=== PATIENT | female | born 1955 | race Caucasian/White ===

== ENCOUNTER → 2019-12-01 13:51 | Outpatient (CLI) | payer BC, SELFPAY ==
--- NOTE | ~2019-12-01 | MM_ITS ---
EXAMINATION: MM screening ant BI w wero HISTORY: Screening TECHNIQUE: Craniocaudal and mediolateral oblique 3-D tomosynthesis images were obtained and synthetic 2-D images were generated. CAD analysis was submitted and interpreted. COMPARISON: Comparison to multiple prior studies sequentially, with oldest reviewed study dated 12/26. BREAST PARENCHYMAL COMPOSITION: The breasts are extremely dense, which lowers the sensitivity of mamm ography. FINDINGS: There is no evidence of suspicious mass, calcification, or architectural distortion to sugg est malignancy in either breast. There has been no suspicious interval change. IMPRESSION: 1. No mammographic evidence of malignancy. 2. Recommend routine screening mammography in one year. BI-RADS Category 1: Negative Reviewed, dictated and finalized at location A.
== END ==
PROVIDERS: PCP Family Medicine; Visit Provider Obstetrics & Gynecology
DX: Z12.31 Encounter for screening mammogram for malignant neoplasm of breast (principal)
CPT/HCPCS: 77063; 77067

== ENCOUNTER 2021-08-24 17:14 | Outpatient (CLI) | payer OTHER, SELFPAY ==
--- NOTE | ~2021-08-24 | US_ITS ---
EXAMINATION: US carotid duplex BI DATE: 08/24/2021 17:39 INDICATION: Occlusion and stenosis of unspecified carotid artery, bruit TECHNIQUE: Grayscale, color Doppler, and pulsed Doppler images of the cervical carotid arteries were obtained. The degree of vessel stenosis is placed in one of the following categories: normal, <50%, 5 0-69%, >=70% but less than near-occlusion, near-occlusion, or total occlusion. Note that percent sten osis relative to normal distal artery lumen diameter is indirectly measured from velocity measurement s as described by Trung, et al. Radiology 2003; 229:340-346. COMPARISON: 06/16/2010 FINDINGS: RIGHT: The right common carotid artery (CCA) peak systolic velocity (PSV) is 104 cm/s. The right internal ca rotid artery (ICA) PSV is 96 cm/s. The right ICA end-diastolic velocity (EDV) is 24 cm/s. The right I CA/CCA PSV ratio is 0.9. Grayscale and color Doppler images yield an estimate of less than 50% diamet er reduction from plaque in the ICA. The external carotid artery (ECA) PSV is 82 cm/s. There is anteg rade flow in the right vertebral artery. LEFT: The left CCA PSV is 95 cm/s. The left ICA PSV is 93 cm/s. The left ICA EDV is 33 cm/s. The left ICA/C CA PSV ratio is 1.0. Grayscale and color Doppler images yield an estimate of less than 50% diameter r eduction from plaque in the ICA. The ECA PSV is 85 cm/s. There is antegrade flow in the left vertebra l artery. IMPRESSION: 1. <50% stenosis in the right internal carotid artery. 2. <50% stenosis in the left internal carotid artery. Reviewed, dictated and finalized at location F.
== END 2021-08-24 17:15 | disposition home or self-care (01) ==
PROVIDERS: PCP Family Medicine; Visit Provider Family Medicine
DX: I65.23 Occlusion and stenosis of bilateral carotid arteries (principal)
CPT/HCPCS: 93880

== ENCOUNTER 2022-10-03 15:13 | Emergency (ER) | payer OTHER, SELFPAY ==
[2022-10-03] VITALS (7 sets, daily range): BP systolic 104–135; BP diastolic 52–66; PULSE 57–76; RESP 15–20; TEMP 36.6; O2SAT 100
--- NOTE | ~2022-10-03 | CT_ITS ---
EXAMINATION: CT abdomen pelvis w con DATE: 10/03/2022 19:17 INDICATION: vomiting, diarrhea, epigastric pain into scapula TECHNIQUE: Computed tomography (CT) of the abdomen and pelvis was performed with 100 mL Omnipaque-350 intravenous contrast. Automated exposure control and iterative reconstruction technique were employe d. The dose-length product was 170.12 mGy-cm. COMPARISON: 02/27/2012. FINDINGS: Lower thorax: Peripheral and basal reticular opacities, likely change of usual interstitial pneumonit is. Liver: Normal. Biliary/Gallbladder: Gallbladder is normal. No bile duct dilation. Pancreas: No mass or duct dilation. Spleen: Normal. Adrenals:No mass. Kidneys: Simple left midpole cyst. No suspicious mass, stone, or hydronephrosis. GI tract: Moderate distal esophageal and gastric wall edema. Uncomplicated rectal anastomosis. No sma ll or large bowel dilation. Normal appendix. Mesentery/Peritoneum: No ascites, mass, or free air. Retroperitoneum: No mass. Atherosclerotic abdominal aortic and/or arterial calcifications. Pelvis: Surgically absent uterus. Normal urinary bladder.. Soft Tissues: Soft tissues and body wall unremarkable. Bones: No acute osseous finding. IMPRESSION: Moderate esophagitis/gastritis. No other acute abdominopelvic process detected. Reviewed, dictated and finalized at location K.
--- NOTE | ~2022-10-03 | XR_ITS ---
EXAMINATION: XR chest 1V portable Exam Date/Time: 10/03/2022 18:15 CDT HISTORY: weakness, lightheaded Comparison: 05/05/2010, images only. RESULT: Lines, tubes, and devices: None. Lungs and pleura: Clear. Cardiomediastinal silhouette: Stable. Other: No acute osseous or upper abdominal finding. IMPRESSION: No acute cardiopulmonary process. Reviewed, dictated and finalized at location K.
[2022-10-03 15:35] LABS: Basophils Percent Auto 0.3 % (0.2-1.2); Eosinophils Absolute Auto 0.1 K/mm3 (0-0.3); Eosinophils Percent Auto 0.8 % (0-4.4); Hematocrit 39.2 % (37.0-47.0); Immature Granulocyte Absolute 0.01 K/mm3 (0.00-0.031); Immature Granulocyte Percent A 0.2 % (0-0.5); Lymphocytes Absolute Auto 1.84 K/mm3 (0.9-3.2); Lymphocytes Percent Auto 30.3 % (18.3-44.2); Mean Corpuscular HGB Conc 33.2 g/dl (32-36); Mean Corpuscular Hemoglobin 30.4 pg (26-34); Mean Corpuscular Volume 91.8 fl (80-100); Mean Platelet Volume 8.8 fl (7.4-10.4); Monocytes Absolute Auto 0.8 K/mm3 (0.1-0.6); Monocytes Percent Auto 12.8 % (2.6-8.5); Neutrophils Absolute Auto 3.4 K/mm3 (1.3-6.7); Neutrophils Percent Auto 55.6 % (45.5-73.1); Platelet Count Result 315 k/mm3 (150-375); Red Blood Count 4.27 M/mm3 (4.2-5.4); Red Cell Distribution Width 13.8 % (11.5-14.5); White Blood Count 6.1 K/mm3 (4.5-10.0)
[2022-10-03 15:46] LABS: Alanine Aminotransferase 21 U/L (6-35); Alkaline Phosphatase 68 U/L (38-126); Anion Gap 6 mmol/L (8-16); Aspartate Amino Transferase 30 U/L (14-36); Bilirubin,Total 0.4 mg/dL (0.2-1.3); Blood Urea Nitrogen 16 mg/dL (7-17); Calcium 8.9 mg/dL (8.4-10.2); Carbon Dioxide 27 mmol/L (22-30); Chloride 100 mmol/L (98-107); Estimated CRCL calculation 47 ml/min; Estimated Glomerular Filt Rate > 60; Glucose 153 mg/dL (65-110); Potassium 3.2 mmol/L (3.4-5.0); Sodium 133 mmol/L (137-145)
[2022-10-03 18:02] LABS: Lipase 57 U/L (23-300)
[2022-10-03 18:10] LABS: Appearance Urine Cloudy (Clear); Bacteria Urine None Seen /hpf; Bilirubin Urine Negative (Negative); Blood Urine Negative (Negative); Color Urine Yellow (Yellow); Glucose Urine UA Negative (Negative); Ketones Urine Negative (Negative); Leukocyte Esterase Ur Negative LEU/UL (Negative); Nitrate Urine Negative (Negative); Non Pathogenic Casts 0-2; Protein Urine Negative (Negative); RBC Urine 0-2 /hpf (0-2); Specific Grav Ur 1.015 (1.001-1.035); Squamous Epithelial Cell Urine Moderate /hpf (Few); WBC Urine 0-5 /hpf; pH Urine 5.5 (5.0-9.0)
--- NOTE | 2022-10-03 18:12 | ED.WEAKNESS ---
HPI - Weakness General Chief complaint: Weakness Stated complaint: weakness Time Seen by Provider: 10/03/22 17:49 History of Present Illness HPI Narrative: Patient is a 67-year-old female presenting with generalized weakness. Patient states that she has been under significant stress for the last month as her was in the ICU and was recently discharged. States that over the weekend she developed persistent nausea and numerous episodes of diarrhea. States that she has been able to tolerate small amounts of p.o. intake but she has been feeling increasingly weak and intermittently lightheaded. States that she has had to lay on her couch for the last several days. She called her PCP today who advised that she come in to the ER. States that she has not vomited or had diarrhea today. Reports decreased urinary frequency but no dysuria or hematuria. Reports intermittent headache. No fevers, numbness or weakness, chest pain, shortness of breath, cough, leg swelling. States that she did have some epigastric pain that radiated into her upper back. Related Data Home Medications Medication Instructions Recorded Confirmed aspirin 81 mg tablet,delayed 81 mg PO DAILY 03/27/19 09/06/21 release estradiol 1 mg tablet 0.5 mg PO DAILY 08/12/20 09/06/21 Allergies Allergy/AdvReac Type Severity Reaction Status Date / Time No Known Allergies Allergy Mild Verified 09/06/21 15:29 Review of Systems Review of Systems: All systems reviewed & are unremarkable except as noted in HPI and below PMFSH Past Medical History Medical History Cancer of colon Chest pain History of COPD Surgical History Surgical History H/O hysterectomy with unilateral oophorectomy H/O partial resection of colon H/O: Family History Family History Mother Diabetes mellitus Sibling Acute myocardial infarction Sibling Acute myocardial infarction Social History Social History Smoking status: Never smoker Second hand tobacco smoke exposure: No Smoking end date: 02/26/08 Alcohol intake: current Drinks per week: 1 Substance use: never Substance use type: does not use Living arrangements: with family Occupation/Education: occupation Gender identity (if verbalized by the patient): Female Spiritual care concerns: No Agree to blood products: Yes Exam Narrative: GENERAL: Well-appearing, well-nourished, and in no acute distress. Pleasant and cooperative HEAD: Normocephalic, atraumatic. EYES: PERRLA and EOMI. ENT: Nares clear, no rhinorrhea or epistaxis. Mucous membranes moist. NECK: Supple. CHEST: Clear to auscultation. No respiratory distress. HEART: Regular rate and rhythm. No murmur heard. Normal peripheral pulses. ABDOMEN: Soft, mild epigastric tenderness, no guarding or rebound EXTREMITIES: Normal range of motion. No edema. SKIN: Warm, dry, no rash. NEURO: No focal deficits. Alert and oriented x3. PSYCH: Normal mood and affect. Course Vital Signs Vital signs: Vital Signs Temperature 97.9 F 10/03/22 15:15 Pulse Rate 74 10/03/22 15:15 Respiratory Rate 18 10/03/22 15:15 Blood Pressure 108/66 10/03/22 15:15 Pulse Oximetry 100 10/03/22 15:15 Temperature 97.9 F 10/03/22 15:15 Pulse Rate 76 10/03/22 20:49 Respiratory Rate 15 10/03/22 20:49 Blood Pressure 104/52 L 10/03/22 20:49 Pulse Oximetry 100 10/03/22 20:49 MDM - Weakness MDM Narrative Medical decision making narrative: Patient is a 67-year-old female presenting with generalized weakness, lightheadedness in the setting of recent vomiting and diarrhea. Vitals are stable. Exam remarkable for the above. Plan for EKG, labs, chest x-ray, CT abdomen pelvis, fluids, Zofran,
--- NOTE | 2022-10-03 18:15 | ECG_ITS ---
Measurements Intervals [place] Rate: 52 P: 81 GA: 121 QRS: 79 QRSD: 112 T: 61 QT: 453 QTc: 425 Interpretive Statements SINUS BRADYCARDIA MODERATE INTRAVENTRICULAR CONDUCTION DELAY [110+ ms QRS DURATION] NO PREVIOUS ECG AVAILABLE FOR COMPARISON Electronically Signed On 10-04-2022 8:56:01 CDT by Keila Fajardo M.D.
[2022-10-03 18:16] LABS: Add Urine Microscopic? YES
[2022-10-03] MEDS: ONDANSETRON INJ 4 MG/2 ML VIAL IV PUSH (18:32)
[2022-10-03] MEDS: LACTATED RINGERS 1,000 ML 999 ML IV CONT ×2 (18:33→18:34)
[2022-10-03] MEDS: FAMOTIDINE 20 MG/2 ML VIAL IV PUSH (18:33)
[2022-10-03 18:39] LABS: Troponin I < 0.012 ng/mL (0.000-0.034)
[2022-10-03] MEDS: POTASSIUM CHLORIDE 20 MEQ ER TABLET 40 MEQ PO (20:28)
[2022-10-03] MEDS: ONDANSETRON HCL ODT 4 MG TABLET PO (20:36)
== END 2022-10-03 20:50 | disposition home or self-care (01) ==
PROVIDERS: Emergency Medicine; Emergency Provider Emergency Medicine; PCP Family Medicine
DX: K20.90 Esophagitis, unspecified without bleeding (principal); K29.70 Gastritis, unspecified, without bleeding; E87.6 Hypokalemia; R53.1 Weakness; J44.9 Chronic obstructive pulmonary disease, unspecified; Z85.038 Personal history of other malignant neoplasm of large intestine; Z87.891 Personal history of nicotine dependence; Z90.710 Acquired absence of both cervix and uterus; Z90.721 Acquired absence of ovaries, unilateral; Z90.49 Acquired absence of other specified parts of digestive tract; Z79.82 Long term (current) use of aspirin
CPT/HCPCS: 36415; 71045; 74177; 80053; 81001; 83690; 83735; 84484; 85025; 93005; 96361; 96374; 96375; 99284; A9270; J2405; J7120; Q9967

== ENCOUNTER 2023-01-01 13:39 | Outpatient (CLI) | payer OTHER, SELFPAY ==
--- NOTE | ~2023-01-01 | CT_ITS ---
CT Scan of the Chest without Contrast: Clinical Indication: Lung cancer screening, personal history of nicotine dependence Technique: Contiguous sections were acquired throughout the chest without intravenous contrast. Dose reduction technique was used on this scan by utilizing automated exposure control and iterative recon struction technique. The dose-length product (DLP) was 58.01 mGy-cm. Findings: There is no evidence of any significant mediastinal, hilar or axillary lymphadenopathy. Calcified med iastinal lymph nodes are present. The mediastinal soft tissues otherwise appear normal. There is no evidence of pleural or pericardial effusion. There is advanced emphysema. There is right apical scarring with an associated 7 mm nodule (axial anastasiia ge 19). Images through the upper abdomen reveal no abnormalities. Impression: Lung RADS 3: Probably benign. Six-month follow-up screening CT advised. Reviewed, dictated and finalized at location . [facility] Impression: Lung RADS 3: Probably benign. Six-month follow-up screening CT advised.
== END 2023-01-01 13:40 | disposition home or self-care (01) ==
PROVIDERS: PCP Family Medicine; Visit Provider Family Medicine
DX: Z12.2 Encounter for screening for malignant neoplasm of respiratory organs (principal); Z87.891 Personal history of nicotine dependence; R91.8 Other nonspecific abnormal finding of lung field
CPT/HCPCS: 71271

== ENCOUNTER → 2023-02-05 16:09 | Outpatient (CLI) | payer OTHER, SELFPAY ==
--- NOTE | ~2023-02-05 | MM_ITS ---
EXAMINATION: MM screening ant BI w wero HISTORY: Screening TECHNIQUE: Craniocaudal and mediolateral oblique 3-D tomosynthesis images were obtained and synthetic 2-D images were generated. CAD analysis was submitted and interpreted. COMPARISON: Comparison to multiple prior studies sequentially, with oldest reviewed study dated 07/2019. BREAST PARENCHYMAL COMPOSITION: The breasts are extremely dense, which lowers the sensitivity of mamm ography. FINDINGS: There is no evidence of suspicious mass, calcification, or architectural distortion to sugg est malignancy in either breast. There has been no suspicious interval change. IMPRESSION: 1. No mammographic evidence of malignancy. 2. Recommend routine screening mammography in one year. BI-RADS Category 1: Negative Reviewed, dictated and finalized at location A. N PLUMBER
== END ==
PROVIDERS: PCP Nurse Practitioner Family; Visit Provider Nurse Practitioner Family
DX: Z12.31 Encounter for screening mammogram for malignant neoplasm of breast (principal)
CPT/HCPCS: 77063; 77067

== ENCOUNTER 2023-02-27 10:17 | Outpatient (CLI) | payer OTHER, SELFPAY ==
--- NOTE | 2023-02-27 14:32 | WPDPFTINT ---
PFT Procedure Performed PFT Procedure Performed Spirometry with Pre/Post Bronchodilator Plethysmography (Lung Vol) Diffusing Cap (DLCO) Flow Vol Loop PFT Interpretation Lung volumes were measured with the body plethysmography method. Lung volumes are unremarkable. Spirometry showed diminished expiratory flow rates and a diminished FEV1 to FVC ratio of 57%, indicative of obstructive airway disease. Following administration of a bronchodilator there was no significant increase in expiratory flow rates. Lung diffusion capacity is moderately reduced at 46% predicted. The flow-volume loop is consistent with obstructive airway disease. Impression: Mild obstructive airway disease with no response to bronchodilators on this testing. Moderately reduced lung diffusion capacity.
--- NOTE | 2023-02-27 14:35 | WPDSIXMINUTE ---
Six Minute Walk Procedure Procedure Performed Pulmonary Stress Test (6 min walk) Six Minute Walk Six Minute Walk: This 6 minute walk test was carried out with the patient breathing ambient air. The baseline pre walk oxyhemoglobin saturation was 96%. The patient walked over 487 m with no stops during testing. During the walk the oxyhemoglobin saturation remained in the range of 94-96%. The perceived dyspnea on the Gianni scale was 0 at baseline and increased to 2 at the end of testing. Impression: No evidence of oxyhemoglobin desaturation on this testing.
== END 2023-02-27 10:18 | disposition home or self-care (01) ==
LOC: ANHPFT 10:18
PROVIDERS: PCP Nurse Practitioner Family; Visit Provider Nurse Practitioner Family
DX: J43.9 Emphysema, unspecified (principal); R06.09 Other forms of dyspnea
CPT/HCPCS: 94060; 94618; 94726; 94729

== ENCOUNTER 2023-07-15 10:08 | Outpatient (CLI) | payer OTHER, SELFPAY ==
--- NOTE | ~2023-07-15 | CT_ITS ---
CT Scan of the Chest without Contrast: Clinical Indication: Solitary pulmonary nodule Technique: Contiguous sections were acquired throughout the chest without intravenous contrast. Dose reduction technique was used on this scan by utilizing automated exposure control and iterative recon struction technique. The dose-length product (DLP) was 66.98 mGy-cm. COMPARISON: 723 Findings: There is no evidence of any significant mediastinal, hilar or axillary lymphadenopathy. Calcified lef t hilar lymph nodes are present. There are atherosclerotic calcifications of aorta. There is no evidence of pleural or pericardial effusion. Stable right apical scarring and 7 mm right apical pulmonary nodule. Stable moderate to severe emphys felicity. Images through the upper abdomen reveal no abnormalities. Impression: Stable 7 mm right apical pulmonary nodule with associated right apical scarring. Stable moderate to advanced emphysema. Reviewed, dictated and finalized at [facility]. Impression: Stable 7 mm right apical pulmonary nodule with associated right apical scarring . Stable moderate to advanced emphysema.
== END 2023-07-15 10:09 | disposition home or self-care (01) ==
PROVIDERS: PCP Nurse Practitioner Family; Visit Provider Nurse Practitioner Family
DX: R91.1 Solitary pulmonary nodule (principal); J43.9 Emphysema, unspecified; R91.8 Other nonspecific abnormal finding of lung field
CPT/HCPCS: 71250

== ENCOUNTER 2023-09-28 13:13 | Emergency (ER) | payer OTHER, SELFPAY ==
[2023-09-28] VITALS (11 sets, daily range): BP systolic 123–150; BP diastolic 58–89; PULSE 57–63; RESP 10–20; TEMP 36.9–37.1; O2SAT 95–100
--- NOTE | ~2023-09-28 | XR_ITS ---
XR chest 2V DATE: 09/28/2023 14:07 INDICATION: Chest pain for 2 hours TECHNIQUE: PA and lateral views COMPARISON: 07/15/2023 CT chest FINDINGS: Bilateral hyperinflation consistent with COPD. No pulmonary infiltrate or consolidation, pl eural effusion or pulmonary vascular congestion or pneumothorax is detected. Normal heart size. Aortic arch calcification. No hilar or mediastinal enlargement. Osteopenia. IMPRESSION: COPD Aortic atherosclerosis Reviewed, dictated and finalized at location J. IMPRESSION: COPD Aortic atherosclerosis
--- NOTE | ~2023-09-28 | CT_ITS ---
EXAMINATION: CTA chest DATE: 09/28/2023 15:24 INDICATION: Chest pain TECHNIQUE: Computed tomography angiography (CTA) of the chest was performed with 100 mL Omnipaque-350 intravenous contrast timed to evaluate the pulmonary arteries. Coronal maximum intensity projection 3D-reconstructions were created by the technologist. Automated exposure control and iterative reconst ruction technique were employed. Exam dose: 162.62 mGy-cm total exam DLP. COMPARISON: 09/28/2023 2 view chest 07/15/2023 CT chest FINDINGS: There is diagnostic contrast enhancement of the pulmonary arteries and no evidence of pulmo nary embolism. No thoracic aortic aneurysm or dissection. Normal heart size. No pericardial or pleural effusion. Calcified left hilar and mediastinal nodes consistent with old pulmonary granulomatous disease. No hi lar or mediastinal mass lesion or lymphadenopathy. Chronic stable right apical 7 mm nodular density. Bilateral apical scarring. Prominent emphysematous changes of the lungs. Normal morphology of the adrenal glands. Included upper abdominal structures are unremarkable. IMPRESSION: No evidence of pulmonary embolism Prominent emphysema Chronic stable 7 mm right apical opacity, bilateral apical scarring Reviewed, dictated and finalized at Location A. Reviewed, dictated and finalized at location J.
--- NOTE | 2023-09-28 13:13 | ECG_ITS ---
Test Date: 2023-09-28 13:18:35 Measurements Intervals [place] Rate: 56 P: 71 OK: 126 QRS: 73 QRSD: 94 T: 41 QT: 411 QTc: 400 Interpretive Statements SINUS BRADYCARDIA OTHERWISE NORMAL ELECTROCARDIOGRAM No previous ECG available for comparison Electronically Signed On 09-29-2023 08:52:01 CDT by Sincere Carlos M.D.
[2023-09-28 13:30] LABS: Basophils Absolute Auto 0.1 K/mm3 (0.0-0.1); Basophils Percent Auto 0.6 % (0.2-1.2); Eosinophils Absolute Auto 0.1 K/mm3 (0-0.3); Eosinophils Percent Auto 1.7 % (0-4.4); Hematocrit 41.3 % (37.0-47.0); Hemoglobin 13.3 g/dL (12.0-15.0); Immature Granulocyte Absolute 0.03 K/mm3 (0.00-0.031); Immature Granulocyte Percent A 0.4 % (0-0.5); Lymphocytes Absolute Auto 2.17 K/mm3 (0.9-3.2); Lymphocytes Percent Auto 25.8 % (18.3-44.2); Mean Corpuscular HGB Conc 32.2 g/dl (32-36); Mean Corpuscular Volume 96.3 fl (80-100); Mean Platelet Volume 8.6 fl (7.4-10.4); Monocytes Absolute Auto 0.7 K/mm3 (0.1-0.6); Neutrophils Absolute Auto 5.4 K/mm3 (1.3-6.7); Neutrophils Percent Auto 63.5 % (45.5-73.1); Platelet Count Result 322 k/mm3 (150-375); Red Blood Count 4.29 M/mm3 (4.2-5.4); White Blood Count 8.4 K/mm3 (4.5-10.0)
[2023-09-28 13:41] LABS: Partial Thromboplastin Time 28.7 Seconds (22.3-36.8)
[2023-09-28 13:47] LABS: Alanine Aminotransferase 22 U/L (6-35); Albumin Level 4.4 g/dL (3.5-5.1); Alkaline Phosphatase 97 U/L (38-126); Anion Gap 10 mmol/L (4-12); Aspartate Amino Transferase 28 U/L (14-36); Bilirubin,Total 0.6 mg/dL (0.2-1.3); Blood Urea Nitrogen 17 mg/dL (7-17); Carbon Dioxide 27 mmol/L (22-30); Chloride 101 mmol/L (98-107); Estimated CRCL calculation 41 ml/min; Estimated Glomerular Filt Rate > 60; Glucose 82 mg/dL (65-110); Lipase 68 U/L (23-300); Potassium 3.4 mmol/L (3.4-5.0); Sodium 138 mmol/L (137-145)
[2023-09-28 13:59] LABS: Troponin I < 0.012 ng/mL (0.000-0.034)
[2023-09-28 14:16] LABS: Influenza A QL RT-PCR Negative (Negative); Influenza B QL RT-PCR Negative (Negative); RSV RNA, RT-PCR Negative (Negative); SARS-CoV-2 RNA PCR Negative (Negative)
[2023-09-28] MEDS: ASPIRIN 81 MG CHEWABLE TABLET 324 MG PO (14:30)
[2023-09-28] MEDS: KETOROLAC 30 MG/ML VIAL (*BKC) IV PUSH (14:46)
--- NOTE | 2023-09-28 14:53 | ED.GENADULT ---
HPI - General Adult General Chief complaint: Chest Pain Stated complaint: chest pain Time Seen by Provider: 09/28/23 13:58 History of Present Illness HPI narrative: Josette Pace is a 68 y/o female with PMHx of COPD who presents with left sided chest pain that radiates to her back through and through that started at [id number] today- she had just finished mowing with an electric mower she says it was not strenuous or anything new for her but she has never had pain like this She says the pain is worse with deep breaths and worse with movement. Pain is better while laying still on her left side. No hx of [place] / cardiac stents or cardiac surgery No hx of htn/ hld Related Data Allergies Allergy/AdvReac Type Severity Reaction Status Date / Time doxycycline AdvReac Intermediate Nausea Verified 08/05/23 14:06 Review of Systems Review of Systems: All systems reviewed & are unremarkable except as noted in HPI and below PMFSH Past Medical History Medical History Cancer of colon Chest discomfort Chest pain Emphysema lung History of COPD Lung nodule Smoking history Surgical History Surgical History H/O hysterectomy with unilateral oophorectomy H/O partial resection of colon H/O: Family History Family History Mother Diabetes mellitus Sibling Acute myocardial infarction Sibling Acute myocardial infarction Social History Social History Smoking packs per day: 0.75 Smoking cigarettes per day: 15.0 Years smoked: 35 Smoking pack-years: 26.25 Smoking status: Former smoker Tobacco type: cigarettes Second hand tobacco smoke exposure: Yes Smoking end date: 02/26/08 Alcohol intake: current Drinks per week: 1 Substance use: never Substance use type: does not use Living arrangements: with family Occupation/Education: occupation Gender identity (if verbalized by the patient): Female Spiritual care concerns: No Agree to blood products: Yes Exam Narrative: GENERAL: well-nourished, and in no acute distress. HEAD: Normocephalic, atraumatic. EYES: PERRLA and EOMI. ENT: Nares clear, no rhinorrhea or epistaxis. Mucous membranes moist. Oropharynx without tonsillar hypertrophy exudate or other lesions. NECK: Supple. No adenopathy or masses. No carotid bruits or JVD CHEST: Clear to auscultation. No respiratory distress. No wheezes rales or rhonchi HEART: Regular rate and rhythm. No murmur heard. Normal peripheral pulses. ABDOMEN: Soft, nontender, nondistended, normal active bowel sounds. EXTREMITIES: Normal range of motion. No edema. SKIN: Warm, dry, no rash. NEURO: No focal deficits. Alert and oriented x3. PSYCH: Normal mood and affect. Course Vital Signs Vital signs: Vital Signs Temperature 37.1 C 09/28/23 13:28 Pulse Rate 61 09/28/23 13:28 Respiratory Rate 16 09/28/23 13:28 Blood Pressure 150/58 H 09/28/23 13:28 Pulse Oximetry 100 09/28/23 13:28 Oxygen Delivery Room Air 09/28/23 13:28 Temperature 37.1 C 09/28/23 13:28 Pulse Rate 58 L 09/28/23 14:30 Respiratory Rate 16 09/28/23 14:30 Blood Pressure 124/75 09/28/23 14:30 Pulse Oximetry 100 09/28/23 14:30 Oxygen Delivery Room Air 09/28/23 14:11 Medical Decision Making [facility] Narrative Medical decision making narrative: 68 y/o female presents with onset of left sided chest pain radiating to her back that started at 1115 today No recent cough / fevers / abdominal pain/ nausea/vomiting no peripheral edema plan to check a cardiac work up including CTA chest CBC- unremarkable CMP- unremarkable Trop1- Negative Trop2- Negative Lipase- negative Chest XR- COPD Aortic atherosclerosis CTA chest - No evidence of pulmonary embolism Prominent emphysema Chronic stable 7 mm right apical opacity, bilater
--- NOTE | 2023-09-28 16:13 | ECG_ITS ---
Test Date: 2023-09-28 16:13:05 Measurements Intervals [place] Rate: 51 P: 81 MD: 134 QRS: 80 QRSD: 90 T: 51 QT: 467 QTc: 434 Interpretive Statements SINUS BRADYCARDIA OTHERWISE NORMAL ELECTROCARDIOGRAM Compared to ECG 09/28/2023 13:18:35 No significant changes Electronically Signed On 09-29-2023 08:55:44 CDT by Sincere Carlos M.D.
[2023-09-28 16:40] LABS: Troponin I < 0.012 ng/mL (0.000-0.034)
== END 2023-09-28 17:17 | disposition home or self-care (01) ==
PROVIDERS: Emergency Medicine; Emergency Provider Nurse Practitioner Family
DX: R07.9 Chest pain, unspecified (principal); Z20.822 Contact with and (suspected) exposure to COVID-19; J43.9 Emphysema, unspecified; J44.9 Chronic obstructive pulmonary disease, unspecified; Z90.710 Acquired absence of both cervix and uterus; Z90.721 Acquired absence of ovaries, unilateral; Z90.49 Acquired absence of other specified parts of digestive tract; Z85.038 Personal history of other malignant neoplasm of large intestine; Z87.891 Personal history of nicotine dependence; R00.1 Bradycardia, unspecified
CPT/HCPCS: 36415; 71046; 71275; 80053; 83690; 84484; 85025; 85610; 85730; 87637; 93005; 96374; 99284; A9270; J1885; Q9967

== ENCOUNTER 2024-07-02 17:01 | Emergency (ER) | payer OTHER, SELFPAY ==
[2024-07-02] VITALS (26 sets, daily range): BP systolic 102–137; BP diastolic 62–91; PULSE 60–88; RESP 12–23; TEMP 36.3–36.6; O2SAT 90–100
--- NOTE | ~2024-07-02 | XR_ITS ---
HISTORY: Left shoulder pain COMPARISON: None TECHNIQUE: 4 views of the left shoulder were performed FINDINGS: No acute fracture. The glenohumeral and acromioclavicular joint space is maintained The visualized portion of the adjacent left lung is clear. The humeral head is well seated within the glenoid fossa. IMPRESSION: No acute fracture or anterior dislocation. Reviewed, dictated and finalized at location A.
--- NOTE | ~2024-07-02 | XR_ITS ---
Are CHEST RADIOGRAPH, PA AND LATERAL CLINICAL HISTORY: syncopal . COMPARISON: 09/28/2023 TECHNIQUE: PA and lateral views of the chest. FINDINGS Calcified lymph nodes within the mediastinum. The remainder of the cardiomediastinal silhouette is otherwise unremarkable. The lungs are clear. IMPRESSION: No focal infiltrate or effusion. Reviewed, dictated and finalized at location A.
--- NOTE | ~2024-07-02 | CT_ITS ---
History: Remote history of syncope (more than 48 hours earlier) PROCEDURE: CT head without contrast. COMPARISON: None TECHNIQUE: Axial imaging of the head performed from the skull base to the vertex without IV contrast. Sagittal a nd coronal reformations obtained. DLP: 605 mGy-cm FINDINGS: The ventricles are normal in size, shape and position. There is no mass, mass effect or midline shift. There is no abnormal extra-axial fluid collection or intracranial hemorrhage. Visualized paranasal sinuses are clear. The mastoid air cells are well aerated. No acute displaced fractures within the overlying cranium. Impression: No acute intracranial hemorrhage or suspicious mass effect. Reviewed, dictated and finalized at location A. Impression: No acute intracranial hemorrhage or suspicious mass effect.
--- OUTSIDE RECORDS SUMMARY | 2024-07-02 17:03 | XMS_ITS | Encounter Summary ---
Author Organization [facility] Address [address] [place] [address] Care Team Providers Care Can Filling Machine Operator Name Role Phone Alexandria Larkin HIP HOP DANCE INSTRUCTOR Primary Care Provider [phone] Encounter Details Date Type Department Care Team (Latest Contact Info) Description 06/07/2024 Results Follow-Up [facility] [place] [address] [place], [place] [id number] Alexandria Larkin, HIP HOP DANCE INSTRUCTOR [address] [place], [place] [id number] VITAMIN D 25 [place], COMPREHENSIVE METABOLIC PANEL Social History Tobacco Use Types Packs/Day Years Used Date Smoking Tobacco: Former Cigarettes Q uit: 02/26/2008 Passive Smoke Exposure: Past Smokeless Tobacco: Never Alcohol Use Standard Drinks/Week Comments Not Currently 0 (1 standard drink = 0.6 oz pur e alcohol) PHQ-2 Answer Date Recorded Patient Health Questionnaire-2 Score 0 06/05/2024 Comments No Sex and Gender Information Value Date Recorded Sex Assigned at Female 07/01/2024 2:18 PM CDT Legal Sex Female 8:11 PM CDT Gender Identity Female 07/01/2024 2:18 PM CDT Sexual Orientation Not on file documented as of this encounter Plan of Treatment Upcoming Encounters Date Type Department Care Team (Late st Contact Info) Description 07/08/2024 2:00 PM CDT [facility] [place] [facility] [place] [address] [place] [address] Alexandria Larkin NP [address] [place] [address] 07/13/2024 10:00 AM CDT [facility] [place] [facility] [address] [facility] [place] [phone] Henri Doherty PA-C [address] [facility] [address] [place] [address] 07/23/2024 8:30 AM CDT [facility] [place] [facility] [place] [address] [place] [address] Alexandria Larkin NP [address] [place] [address] 09/24/2024 2:20 PM CDT [facility] [place] - [facility] [address] [facility] [place] [phone] Alverto Frias MD [address] [facility] [place] [address] 12/16/2024 8:00 AM CDT [facility] [place] - [place] [address] [place] [address] Alexandria Larkin NP [address] [place] [address] 12/16/2024 8:30 AM CDT Office Visit [facility] [place] [address] [place] [address] Alexandria Larkin NP [address] [place] [address] documented as of this encounter Visit Diagnoses Diagnosis Stage 3a chronic kidney disease (CMS/HCC)- Primary documented in this encounter Additional Health Concerns Assessment Noted Time PHQ-9 Depression Total Score: 2 06/06/19 25 2:41 PM CDT documented as of this encounter Care Teams Can Filling Machine Operator Relationship Specialty Start Date End Date Alexandria Larkin NP [address] [place] [address] PCP - General NURSE PRACTITIONER 10/16/23 documented as of this encounter
--- OUTSIDE RECORDS SUMMARY | 2024-07-02 17:04 | XMS_ITS | Encounter Summary ---
Author Organization [facility] Address [address] [place] [address] Care Team Providers Care Jewel Bearing Driller Name Role Phone Ari Larkin SALES ADMINISTRATION MANAGER Primary Care Provider Reason for Visit * Reason Comments Leg Pain Head Injury Shoulder Pain Syncope Encounter Details Date Type Department Care Team (Late st Contact Info) Description 07/01/2024 2:20 PM CDT Office Visit [facility] - [place] [address] [place], [place] [id number] Ari Larkin, SALES ADMINISTRATION MANAGER [address] [place], [place] [id number] Leg Pain; Head Injury; Shoulder Pain; Syncope Social History Tobacco Use Types Packs/Day Years Used Date Smoking Tobacco: Former Cigarettes Q uit: 02/26/2008 Passive Smoke Exposure: Past Smokeless Tobacco: Never Tobacco Cessation:Counseling Given: No Alcohol Use Standard Drinks/Week Comments Not Currently [...] on file documented as of this encounter Last Filed Vital Signs Vital Sign Reading Time Taken Comments Blood Pressure 111/71 07/01/2024 2:20 PM CDT Pulse 68 07/01/2024 2:20 PM CDT Temperature 36.4 C (97.6 F) 07/01/2024 2:20 PM CDT Respiratory Rate 16 07/01/2024 2:20 PM CDT Oxygen Saturation 98% 07/01/2024 2:20 PM CDT Inhaled Oxygen Concentration - - Weight 46.2 kg (101 lb 12.8 oz) 07/01/2024 2:20 PM CDT Height 157.5 cm (5' 2 ) 07/01/2024 2:20 PM CDT Body Mass Index 18.62 07/01/2024 2:20 PM CDT documented in this encounter Patient Instructions * Patient Instructions* Ari Larkin NP - 07/01/2024 2:20 PM CDT Call GI to follow up on symptoms Hold magnesium Stretching Hydration with electrolytes - Pedialyte, gatorade If syncope recurs or you have dizziness, persistent headache, vision changes go to ER Follow up in 1 week documented in this encounter Progress Notes * Ari Larkin NP - 07/01/2024 2:20 PM CDTSummary: syncope, diarrhea, nausea Images from the original note were not included. Internal Medicine Outpatient Progress Note CC: Leg Pain, Head Injury, Shoulder Pain, and Syncope HPI: Sheyla Pace is a 69-year-old female who presents to discuss nausea, leg cramps and diarrhea. Daughter present for appointment today. States she woke up yesterday with leg cramps in the middle of thenight. States symptoms were so severe her toes were cramping visibly. She then got up in the middleof the night o walk to the bathroom, stepped over her dog then she woke up on the ground right after assumed she passed out states she hit her head and shoulder on the cabinet left side. Throughout the night she had nausea and diarrhea. Diarrhea still persisting, denies abdominal pain. Started magnesium glycinate a few weeks ago due to intermittent leg cramps. Still having diarrhea on and off, eating banana, smoothie, 2 crackers No vomiting felt very nauseous yesterday Denies chest pain, palpations, no prior syncopal episode. Patient has history of below: Patient Active Problem List Diagnosis Mixed hyperlipidemia Gastroesophageal reflux disease without esophagitis Chronic bronchitis, unspecified chronic bronchitis type ([facility]) Epigastric pain History of colon cancer History of colectomy Jejunitis Adenocarcinoma of sigmoid colon ([facility] HHS/[facility]) Nausea Chronic GERD H/O gastroesophageal reflux (GERD) Dysphagia Abnormal findings on dx imaging of prt digestive tract Abnormal kidney function THERESA (generalized anxiety disorder) Review of Systems Constitutional: Negative. HENT: Negative. Eyes: Negative. Respiratory: Negative. Cardiovascular: Negative. Gastrointestinal: Positive for diarrhea and nausea. Negative for abdominal pain. Neurological: Positive for syncope. Negative for dizziness, seizures, facial asymmetry, light-headedness and headaches. Psychiatric/Behavioral: Negative. Past Medical History: Past Medical History[1] Family History: Family History[2] Social History: Social History[3] Medications: Medications Taking[4] Allergies: Review of patient's allergies indicates: Doxycycline ? Objective: Filed Vitals: 07/01/24 1420 BP: 111/71 Pulse: 68 Resp: 16 Temp: 97.6 ??F (36.4 ??C) TempSrc: Core SpO2: 98% Weight: 46.2 kg (101 lb 12.8 oz) Height: 1.575 m (5' 2 ) Body mass index is 18.62 kg/m??. Physical Exam Constitutional: Appearance: Normal appearance. Eyes: Extraocular Movements: Extraocular movements intact. Conjunctiva/sclera: Conjunctivae normal. Cardiovascular: Rate and Rhythm: Normal rate and regular rhythm. Heart sounds: Normal heart sounds. No murmur heard. Pulmonary: Effort: Pulmonary effort is normal. No respiratory distress. Breath sounds: Normal breath sounds. No wheezing. Skin: General: Skin is warm and dry. Neurological: General: No focal deficit present. Mental Status: She is alert. Cranial Nerves: Cranial nerves 2-12 are intact. Motor: Motor function is intact. No weakness. Coordination: Coordination is intact. Gait: Gait is intact. Deep Tendon Reflexes: Reflexes are normal and symmetric. Psychiatric: Mood and Affect: Mood normal. Judgment: Judgment normal. Assessment and Plan: 1. Leg cramps Hold magnesium supplement incase this is contributing to her diarrhea. Taking magnesium glycinate not citrate. Hydration, stretching - CBC W/DIFF AUTOMATED; Future - COMPREHENSIVE METABOLIC PANEL; Future - MAGNESIUM; Future - CBC W/DIFF AUTOMATED - COMPREHENSIVE METABOLIC PANEL - MAGNESIUM 2. Syncope, unspecified syncope type EKG and labs today Recommend head CT due to hitting her head. She declines. Monitor for dizziness, headache, vomiting,vision changes. - CBC W/DIFF AUTOMATED; Future - COMPREHENSIVE METABOLIC PANEL; Future - MAGNESIUM; Future - EKG WELCHALLEN ACQUIRED - TSH W/REFLEX; Future - CBC W/DIFF AUTOMATED - COMPREHENSIVE METABOLIC PANEL - MAGNESIUM - TSH W/REFLEX 3. Other hyperlipidemia - TSH W/REFLEX; Future - TSH W/REFLEX 4. Abnormal kidney function - URINALYSIS; Future 5. Protein screening - ALBUMIN URINE RANDOM W/CREATININE; Future Tobacco: Counseling given: No I personally spent a total of 35 minutes on the day of the encounter. This includes [id number] and ikl-adzt-bh-face time I provided on the day of the encounter & excludes time spent performing separately reportable services. Side effects and less common but more severe adverse effects of recommended medical therapies were explained to the patient. Patient reminded to use MyChart or telephone follow up prn if symptoms change, worsen, or persist, or if side effect of treatment is experienced. RTC in 1 week, seek care in ER if syncope occurs again ARI LARKIN NP 07/01/2024 [facility] Medical [facility], [facility]. [1] Past Medical History: Diagnosis Date Anxiety and depression Arthritis Cancer ([facility] HHS/HCC) COLON-18 INCHES REMOVED COPD (chronic obstructive pulmonary disease) ([facility] HHS/HCC) 2008 u Emphysema of lung ([facility]) GERD (gastroesophageal reflux disease) [2] Family History Problem Relation Name Age of Onset Diabetes Mother Bio mom Hypertension Sister Yelena Caldwell Heart Attack Sister Yelena Caldwell Heart Attack Brother [3] Social History Tobacco Use Smoking status: Former Current packs/day: 0.00 Types: Cigarettes Quit date: 02/26/2008 Years since quittin.3 Passive exposure: Past Smokeless tobacco: Never Vaping Use Vaping status: Never Used Substance Use Topics Alcohol use: Not Currently Drug use: Yes Comment: THC Gummies [4] Outpatient Medications Marked as Taking for the 07/01/24 encounter (Office Visit) with Ari Larkin NP Medication Sig Dispense Refill aspirin EC (ECOTRIN) 81 MG tablet Take 1 tablet (81 mg total) by mouth daily. BREZTRI AEROSPHERE 160-9-4.8 MCG/ACT inhaler Inhale 2 puffs into the lungs 2 (two) times daily. Rinse mouth after use 10.7 g 3 fexofenadine (FAUSTO) 180 MG tablet Take 1 tablet (180 mg total) by mouth daily. omeprazole (PRILOSEC) 40 MG capsule Take 1 capsule by mouth once daily 30 capsule 0 sertraline (ZOLOFT) 25 MG tablet Take 1 tablet by mouth once daily 30 tablet 0 documented in this encounter Plan of Treatment Upcoming Encounters Date Type Department Care Team (Late st Contact Info) Description 07/08/2024 2:00 PM CDT [facility] - [place] [address] [place] [address] Ari Larkin NP [address] [place] [address] 07/13/2024 10:00 AM CDT [facility] - [facility] [address] [place] [address] Henri Doherty PA-C [address] [facility] [address] [place] [address] 07/23/2024 8:30 AM CDT Laboratory Only [facility] - [place] [address] [place] [address] Ari Larkin, SALES ADMINISTRATION MANAGER [address] [place] [address] 09/24/2024 2:20 PM CDT [facility] [address] [place] [address] Alverto Frias MD [address] [facility] [place] [address] 12/16/2024 8:00 AM CDT [facility] - [place] [address] [place] [address] Ari Larkin, SALES ADMINISTRATION MANAGER [address] [place] [address] 12/16/2024 8:30 AM CDT [facility] [place] [address] [place] [address] Ari Larkin, SALES ADMINISTRATION MANAGER [address] [place] [address] Pending Results Name Type Priority Associated Diagnoses Date /Time EKG WELCHALLEN ACQUIRED EKG-NonRad Routine Syncope, unspecified syncope type 07/01/2024 3:42 PM CDT documented as of this encounter Procedures Procedure Name Priority Date/Time Associated Diagnosis Comments TSH W/REFLEX Routine 07/01/2024 3:45 PM CDT Syncope, unspecified syncope type Other hyperlipidemia COMPREHENSIVE METABOLIC PANEL Routine 07/01/2024 3:45 PM CDT Leg cramps Syncope, unspecified syncope type CBC W/DIFF AUTOMATED Routine 07/01/2024 3:45 PM CDT Leg cramps Syncope, unspecified syncope type MAGNESIUM Routine 07/01/2024 3:45 PM CDT Leg cramps Syncope, unspecified syncope type ELECTROCARDIOGRAM (NON MIDMARK ACQUIRED) Routine 07/01/2024 3:42 PM CDT Syncope, unspecified syncope type Procedure Note - 07/01/2024 3:42 PM CDTThis note is in progress. [facility] [address] [place] [address] Test Date: 2024-07-01 Pat Name: SHEYLA PACE Department: 171 Room: Gender: Female Director Supply: : 1955 Requested By: DEREJE BARBA Order Number: [id number] Reading MD: DEREJE BARBA Measurements Intervals Tracy Rate: 73 P: 86 PA: 135 QRS: 84 QRSD: 92 T: 63 QT: 373 QTc: 411 Interpretive Statements SINUS RHYTHM documented in this encounter Results * (ABNORMAL) URINALYSIS (07/01/2024 7:07 PM CDT) COLOR (U) YELLOW 07/01/2024 8:[address] [facility] TRANSPARENCY CLEAR CLEAR 07/01/2024 8:[address] [facility] SPECIFIC GRAVITY (U) 1.010 1.003 - 1.040 07/01/2024 8:[address] [facility] U PH 5.5 5.0 - 9.0 07/01/2024 8:[address] [facility] PROTEIN RANDOM (U) NEGATIVE NEGATIVE 07/01/2024 8:[address] [facility] GLUCOSE (U) NEGATIVE NEGATIVE 07/01/2024 8:[address] [facility] KETONES MG/DL (U) NEGATIVE NEGATIVE 07/01/2024 8:[address] [facility] BILIRUBIN (U) NEGATIVE NEGATIVE 07/01/2024 8:[address] [facility] BLOOD (U) TRACE(A) NEGATIVE 07/01/2024 8:[address] [facility] UROBILINOGEN 0.2 0.0 - 2.0 EU/DL 07/01/2024 8:[address] [facility] NITRITES NEGATIVE NEGATIVE 07/01/2024 8:[address] [facility] LEUKOCYTES (U) NEGATIVE NEGATIVE 07/01/2024 8:[address] [facility] RBC/HPF 0-3 0 - 3 /HPF 07/01/2024 8:[address] [facility] WBC/HPF 0-3 0 - 3 /HPF 07/01/2024 8:[address] [facility] EPI/HPF 0-3 /HPF 07/01/2024 8:[address] [facility] BACTERIA (U) TRACE(A) NONE SEEN 07/01/2024 8:[address] [facility] URINE SPECIMEN OBTAINED BY CLEAN CATCH PROCEDURE / Unknown 07/01/2024 7:07 PM CDT us Ari Larkin NP URINE ORDERABLES Final Resu lt [facility] [address] [place] [address], * ALBUMIN URINE RANDOM W/CREATININE (07/01/2024 7:06 PM CDT) MICROALBUMIN (U) 3.0 <20 MG/L 07/03/19 25 10:[address] [facility] CREATININE RANDOM (U) 46.7 MG/DL 07/02/2024 10:[address] [facility] ALBUMIN/CREAT RATIO 6.4 <30 MG/G 07/02/2024 10:[address] [facility] URINE SPECIMEN / Unknown 07/01/2024 7:06 PM CDT us Ari Larkin NP URINE ORDERABLES Final Resu lt Performing Organization Address [facility] Co de Phone Number [address] [address], * TSH W/REFLEX (07/01/2024 3:45 PM CDT) TSH 1.962 0.358 - 3.740 uIU/ML 07/01/2024 8:[address] [facility] 07/01/2024 3:45 PM CDT us Ari Larkin NP LABORATORY Final Resul t Performing Organization Address [facility] de Phone Number [address] [address], [place] [phone] * MAGNESIUM (07/01/2024 3:45 PM CDT) MAGNESIUM 2.2 1.8 - 2.4 MG/DL 07/01/2024 8:[address] [facility] 07/01/2024 3:45 PM CDT us Ari Larkin NP LABORATORY Final Resul t Performing Organization Address [facility] Co de Phone Number [address] [address], [place] [phone] * (ABNORMAL) COMPREHENSIVE METABOLIC PANEL (07/01/2024 3:45 PM CDT) SODIUM S/P/B 136 136 - 145 MMOL/L 07/01/2024 8:00 PM CDT -[facility] POTASSIUM S/P/B 4.9 3.5 - 5.1 MMOL/L 07/01/2024 8:00 PM CDT [facility] CHLORIDE S/P/B 100 98 - 107 MMOL/L 07/01/2024 8:00 PM CDT [facility] CO2 31.4 21 - 32 MMOL/L 07/01/2024 8:00 PM CDT [facility] GLUCOSE 90 70 - 99 MG/DL 07/01/2024 8:00 PM T [facility] BUN 31(H) 7 - 18 MG/DL 07/01/2024 8:[address] [facility] CREATININE S/P/B 0.99 0.55 - 1.02 MG/DL 07/01/2024 8:00 PM T [facility] CALCIUM S/P/B 9.9 8.4 - 10.5 MG/DL 07/01/2024 8:00 PM CDT [facility] BILIRUBIN TOTAL S/P/B 0.4 0.2 - 1.0 MG/DL 07/01/2024 8:00 PM T [facility] ALKALINE PHOSPHATASE S/P/B 87 55 - 142 U/L 07/01/2024 8:00 PM CDT [facility] AST 29 15 - 37 U/L 07/01/2024 8:00 PM CDT [facility] ALT 37 14 - 59 U/L 07/01/2024 8:00 PM CDT [facility] TOTAL PROTEIN S/P/B 7.3 6.4 - 8.2 G/DL 07/01/2024 8:00 PM CDT [facility] ALBUMIN S/P/B 3.8 3.4 - 5.0 G/DL 07/01/2024 8:00 PM CDT [facility] ANION GAP 4.6(L) 5 - 15 MMOL/L 07/01/2024 8:[address] [facility] Comment:REFERENCE RANGE NOT ESTABLISHED OSMOLALITY (CALC) 288 MOSM/KG 025 8:[address] [facility] Comment:REFERENCE RANGE NOT ESTABLISHED GFR ESTIMATE 62(L) >90 ML/MIN/1. 73 M2 07/01/2024 8:[address] [facility] GFR NOTES GFR REFERENCE S: 07/01/2024 8:[address] [facility] Comment: THE ESTIMATED GFR IS CALCULATED USING THE 2020 CKD-EPI EQUATION. THE FOLLOWING CATEGORIES FOR GRADING RENAL FUNCTION ARE RECOMMENDED BY THE INTERNATIONAL SOCIETY OF NEPHROLOGY (KDIGO 2012 CLINICAL PRACTICE GUIDELINE). G1,NORMAL OR HIGH: >89 ml/min/1.73 m2 G2,MILDLY DECREASED: 60-89 ml/min/1.73 m2 G3A,MILDLY TO MODERATELY DECREASED: 45-59 ml/min/1.73 m2 G3B,MODERATELY TO SEVERELY DECREASED: 30-44 ml/min/1.73 m2 G4,SEVERELY DECREASED: 15-29 ml/min/1.73 m2 G5,KIDNEY FAILURE: <15 ml/min/1.73 m2 07/01/2024 3:45 PM CDT us Ari Larkin NP LABORATORY Final Resul t [facility] [address] [place] [address], * (ABNORMAL) CBC W/DIFF AUTOMATED (07/01/2024 3:45 PM CDT) WBC 7.07 4.00 - 10.80 x10'3/uL 07/01/2024 7:[address] [facility] RBC 4.59 4.10 - 5.40 x10'6/uL 07/01/2024 7:[address] [facility] HGB 14.1 12.0 - 16.0 G/DL 07/01/2024 7:43 PM CDT [facility] HCT 43.3 36.0 - 47.0 % 07/01/2024 7:43 PM CDT [facility] MCV 94.3 78.0 - 100.0 FL 07/01/2024 7:[address] [facility] MCH 30.7 27.0 - 31.0 PG 07/01/2024 7:43 PM CDT [facility] MCHC 32.6(L) 33.0 - 36.0 G/DL 07/01/2024 7:[address] [facility] RDW 13.5 11.5 - 14.5 % 07/01/2024 7:43 PM CDT [facility] PLT 367(H) 150 - 350 x10'3/uL 07/01/2024 7:43 PM CDT [facility] MPV 9.3 7.4 - 10.4 FL 07/01/2024 7:43 PM CDT [facility] DIFFERENTIAL TYPE AUTOMATED DIFFERENTIAL 07/01/2024 7:[address] [facility] NEUTROPHILS % 58.3 % 07/01/2024 7:[address] [facility] LYMPHOCYTES % 27.9 % 07/01/2024 7:43 PM CDT [facility] MONOCYTES % 12.3 % 07/01/2024 7:43 PM CDT [facility] EOSINOPHILS % 1.0 % 07/01/2024 7:[address] [facility] BASOPHILS % 0.4 % 07/01/2024 7:[address] [facility] IMMATURE GRANS % 0.1 % 07/01/2024 7:[address] [facility] ABS. NEUTROPHILS 4.12 1.60 - 8.30 x10'3/uL 07/01/2024 7:43 PM CDT -[facility] ABS. LYMPHOCYTES 1.97 0.80 - 4.70 x10'3/uL 07/01/2024 7:43 PM CDT -[facility] ABS. MONOCYTES 0.87 0.00 - 1.50 x10'3/uL 07/01/2024 7:[address] [facility] ABS. EOSINOPHILS 0.07 0.00 - 0.40 x10'3/uL 07/01/2024 7:43 PM CDT -[facility] ABS. BASOPHILS 0.03 0.00 - 0.20 x10'3/uL 07/01/2024 7:[address] [facility] ABS. IMMATURE GRANULOCYTES 0.01 0.00 - 0.03 x10'3/uL 07/01/2024 7:[address] [facility] 07/01/2024 3:45 PM CDT us Ari Larkin NP LABORATORY Final Resul t -[facility] [address] [place] [address], documented in this encounter Visit Diagnoses Diagnosis Leg cramps- Primary Cramp of limb Syncope, unspecified syncope type Other hyperlipidemia Abnormal kidney function Unspecified disorder of kidney and ureter Protein screening Special screening for other specified conditions documented in this encounter Additional Health Concerns Assessment Noted Time PHQ-9 Depression Total Score: 2 06/06/19 25 2:41 PM CDT documented as of this encounter Care Teams Jewel Bearing Driller Relationship Specialty Start Date End Date Ari Larkin, SALES ADMINISTRATION MANAGER [address] [place] [address] PCP - General NURSE PRACTITIONER 10/16/23 documented as of this encounter
--- OUTSIDE RECORDS SUMMARY | 2024-07-02 17:04 | XMS_ITS | Referral Summary ---
Author Organization [facility] al Address [address] [place] [address] Care Team Providers Care Garnett Machine Operator Helper Name Role Phone Keiry Watt DO Primary Care Provider + Allergies No known active allergies Medications sodium, potassium & mag sulfates (SUPREP BOWEL KIT) 17.5-3.13-1.6 gram recon solnIndications :Bowel Evacuation Drink 1 bottle at 6pm the night before procedure. Drink 2nd bottle 4 hours prior to leaving home. 354 mL 06/16/2021 Active albuterol HFA (PROVENTIL HFA,VENTOLIN HFA,PROAIR HFA) 90 mcg/actuation inhaler 08/18/2021 Active fluticasone propion-salmete roL (ADVAIR DISKUS) 250-50 mcg/dose diskus inhaler 08/23/2021 Active estradioL (ESTRACE) 0.5 mg tablet Take 0.5 mg by mouth q other day 07/10/2021 Active omeprazole (PriLOSEC) 40 mg capsule Take 40 mg by mouth daily 06/19/2021 Active aspirin 81 mg enteric coated tablet Take 81 mg by mouth daily Active Active Problems Problem Noted Date Diagnosed Date History of malignant neoplasm of colon 3 Adenocarcinoma of sigmoid colon 03/07/2012 Social History Tobacco Use Types Packs/Day Years Used Date Smoking Tobacco: Former Cigarettes 1 33 1 975 - 2007 Smokeless Tobacco: Never AUDIT-C Answer Date Recorded Q1: How often do you have a drink containing alc ohol? Monthly or less 08/25/2021 Q2: How many drinks containi ng alcohol do you have on a typical day when you are drinking? 1 or 2 08/25/2021 Q3: How often do you have si x or more drinks on one occasion? Never 08/25/2021 Personal Safety Answer Date Recorded Getting School Help Needed Not on file 04/21 Comments No Sex and Gender Information Value Date Recorded Sex Assigned at Not on file Legal Sex Female 4:25 AM PLASTICS HEAT WELDER Gender Identity Not on file Sexual Orientation Not on file Last Filed Vital Signs Vital Sign Reading Time Taken Comments Blood Pressure 151/67 08/25/2021 11:45 AM CDT Pulse 56 08/25/2021 11:45 AM CDT Temperature 36.2 C (97.2 F) 08/25/2021 11:25 AM CDT Respiratory Rate 19 08/25/2021 11:45 AM CDT Oxygen Saturation 98% 08/25/2021 11:45 AM CDT Inhaled Oxygen Concentration - - Weight 52.2 kg (115 lb) 08/25/2021 10:20 AM CDT Height 157.5 cm (5' 2 ) 08/25/2021 10:20 AM CDT Body Mass Index 21.03 08/25/2021 10:20 AM CDT Plan of Treatment Not on file Procedures Procedure Name Priority Date/Time Associated Diagnosis Comments COLONOSCOPY 08/25/2021 10:59 AM CDT from Last 3 Months or Most Recently Relevant to Health Maintenance Results * COLONOSCOPY (08/25/2021 10:59 AM CDT) Anatomical Region Laterality Modality Other Narrative Procedure Note Jeromy Sierra MD - 08/25/2021 10:59 AM CDT ENDOSCOPY LAB Patient Name: Josette Pace Procedure Date: 08/25/2021 10:59 AM Date of : 1955 Admit Type: Outpatient Age: 66 Gender: Female Attending MD: Jeromy Sierra M.D. Room: [facility] ENDOSCOPY ROOM 02 Note Status: Finalized Procedure: Colonoscopy Indications: High risk colon cancer surveillance: Personalhistory of colon cancer, Last colonoscopy 5 years ago Providers: Jeromy Sierra M.D. Referring MD: Keiry Watt D.O. Medicines: Propofol per Anesthesia Complications: No immediate complications. Estimated blood loss:None. Estimated Blood Loss: Estimated blood loss: none. Procedure: Pre-Anesthesia Assessment: - Immediately prior to administration ofmedications, the patient was re-assessed for adequacy to receive sedatives. - Sedation was administered by an anesthesia professional. General anesthesia was attained. - The heart rate, respiratory rate, oxygen saturations, blood pressure, adequacy of pulmonary ventilation, and response to care were monitored throughout the procedure. - The physical status of the patient wasre-assessed after the procedure. The benefits, risks and alternatives of theprocedure and sedation were discussed and informed consentwas obtained. All questions were answered. Please referto the signed informed consent document in the medical record. The scope was passed under direct vision.The [id number] was introduced through the anusand advanced to the cecum, identified by appendiceal orifice and ileocecal valve. The colonoscopy was performed with ease. The patient tolerated the procedure well. The quality of the bowelpreparation was excellent. The quality of the bowel preparation was evaluated using the BBPS ([place] BowelPreparation Scale) with scores of: Right Colon = 3, Transverse Colon = 3 and Left Colon = 3 (entire mucosa seenwell with no residual staining, small fragments of stoolor opaque liquid). The total BBPS score equals 9.Bowel prep was administered using a split dose. Findings: The entire examined colon appeared normal. Impression: - The entire examined colon is normal. - No specimens collected. Recommendation: - Repeat colonoscopy in 5 years for surveillance. Electronically signed by Dr.Matthew Mariela M.D. Jeromy Sierra M.D. 08/25/2021 11:20:58 AM Number of Addenda: 0 Note Initiated On: 08/25/2021 10:59 AM Jeromy Sierra MD ENDOSCOPY PROCEDURES Final R esult from Last 3 Months or Most Recently Relevant to Health Maintenance Insurance [place] [place] [address] HEALTHCARE Advance Directives For more information, please contact: [phone] * Full Code (Latest Code Status on File) Date Activated Date Inactivated Comments 08/25/2021 10:14 AM 08/25/2021 4:25 PM Care Teams Garnett Machine Operator Helper Relationship Specialty Start Date End Date Keiry Watt DO [address] [place] [id number] PCP - General Family Medicine 02/19/19
--- OUTSIDE RECORDS SUMMARY | 2024-07-02 17:04 | XMS_ITS | Encounter Summary ---
Author Organization [facility] Address [address] [place] [address] Care Team Providers Care Mid Level Game Designer Name Role Phone Alexandria Larkin DINKEY DISPATCHER Primary Care Provider [phone] Encounter Details Date Type Department Care Team (Late Contact Info) Description 07/01/2024 Orders Only [facility] [place] [address] [facility] [address] [place] [address] Alexandria Larkin, DINKEY DISPATCHER [address] [facility] [address] [place], [place] [id number] Social History Tobacco Use Types Packs/Day Years [...] Description 07/08/2024 2:00 PM CDT [facility] [place] [address] [place] [address] Alexandria Larkin NP [address] [facility] [address] [place] [address] 07/13/2024 10:00 AM CDT [facility] [address] [facility] [place] [phone] Henri Doherty PA-C [address] [facility] [address] [place] [address] 07/23/2024 8:30 AM CDT [facility] [place] [address] [facility] [address] [place] [address] Alexandria Larkin, DINKEY DISPATCHER [address] [facility] [address] [place] [address] 09/24/2024 2:20 PM CDT [facility] [address] [facility] [place] [phone] Alverto Frias MD [address] [facility] [place] [address] 12/16/2024 8:00 AM CDT [facility] [place] [address] [facility] [address] [place] [address] Alexandria Larkin DINKEY DISPATCHER [address] [facility] [address] [place] [address] 12/16/2024 8:30 AM CDT Office Visit [facility] [place] [address] [place] [address] Alexandria Larkin Tamara, DINKEY DISPATCHER [address] [place] [address] documented as of this encounter Procedures Procedure Name Priority Date/Time Associated Diagnosis Comments URINALYSIS, AUTO, COMPLETE Routine 07/01/2024 7:07 PM CDT Abnormal kidney function ALBUMIN URINE RANDOM W/CREATININE Routine 07/01/2024 7:06 PM CDT Type 2 diabetes mellitus without complication, without long-term current use of insulin ([facility]) documented in this encounter Results * (ABNORMAL) URINALYSIS (07/01/2024 7:07 PM CDT) COLOR (U) YELLOW 07/01/2024 8:[address] [facility] TRANSPARENCY CLEAR CLEAR 07/01/2024 8:[address] [facility] SPECIFIC GRAVITY (U) 1.010 1.003 - 1.040 07/01/2024 8:[address] [facility] U PH 5.5 5.0 - 9.0 07/01/2024 8:[address] [facility] PROTEIN RANDOM (U) NEGATIVE NEGATIVE 07/01/2024 8:[address] [facility] GLUCOSE (U) NEGATIVE NEGATIVE 07/01/2024 8:[address] [facility] KETONES MG/DL (U) NEGATIVE NEGATIVE 07/01/2024 8:[address] [facility] BILIRUBIN (U) NEGATIVE NEGATIVE 07/01/2024 8:[address] [facility] BLOOD (U) TRACE(A) NEGATIVE 07/01/2024 8:[address] [facility] UROBILINOGEN 0.2 0.0 - 2.0 EU/DL 07/01/2024 8:[address] [facility] NITRITES NEGATIVE NEGATIVE 07/01/2024 8:[address] [facility] LEUKOCYTES (U) NEGATIVE NEGATIVE 07/01/2024 8:[address] [facility] RBC/HPF 0-3 0 - 3 /HPF 07/01/2024 8:[address] [facility] WBC/HPF 0-3 0 - 3 /HPF 07/01/2024 8:[address] [facility] EPI/HPF 0-3 /HPF 07/01/2024 8:[address] [facility] BACTERIA (U) TRACE(A) NONE SEEN 07/01/2024 8:[address] [facility] URINE SPECIMEN OBTAINED BY CLEAN CATCH PROCEDURE / Unknown 07/01/2024 7:07 PM CDT us Alexandria Larkin NP URINE ORDERABLES Final Resu lt [facility] [address] [place] [address], * ALBUMIN URINE RANDOM W/CREATININE (07/01/2024 7:06 PM CDT) MICROALBUMIN (U) 3.0 <20 MG/L 07/03/19 10:[address] [facility] CREATININE RANDOM (U) 46.7 MG/DL 07/02/2024 10:[address] [facility] ALBUMIN/CREAT RATIO 6.4 <30 MG/G 07/02/2024 10:[address] [facility] URINE SPECIMEN / Unknown 07/01/2024 7:06 PM CDT us Alexandria Larkin NP URINE ORDERABLES Final Resu lt [facility] [place] [address] [place] [address], documented in this encounter Visit Diagnoses Diagnosis Type 2 diabetes mellitus without complication, without long-term current use of insulin ([facility]) Abnormal kidney function Unspecified disorder of kidney and ureter documented in this encounter Additional Health Concerns Assessment Noted Time PHQ-9 Depression Total Score: 2 06/06/19 25 2:41 PM CDT documented as of this encounter Care Teams Mid Level Game Designer Relationship Specialty Start Date End Date Alexandria Larkin, DINKEY DISPATCHER [address] [place] [address] PCP - General NURSE PRACTITIONER 10/16/23 documented as of this encounter
--- OUTSIDE RECORDS SUMMARY | 2024-07-02 17:04 | XMS_ITS | Encounter Summary ---
Author Organization [facility] Address [address] [place] [address] Care Team Providers Care Meter Installer And Remover Name Role Phone Alexandria Larkin HEAD PUMPER Primary Care Provider Encounter Details Date Type Department Care Team (Late Contact Info) Description 11/18/2023 MyChart Message Enc [facility] [place] [address] [place], [place] [phone] Alexandria Larkin, HEAD PUMPER [address] [place], [place] [id number] update Social History Tobacco Use Types Packs/Day Years Used Date Smoking Tobacco: Former Cigarettes Q uit: 02/26/2008 Passive Smoke Exposure: Past Smokeless Tobacco: Never Alcohol Use Standard Drinks/Week Comments Not Asked 0 (1 standard drink = 0.6 oz pur e alcohol) ocassionaly Comments No Sex and Gender Information Value Date Recorded Sex Assigned at Female 07/01/2024 2:18 PM CDT Legal Sex Female 8:11 PM CDT Gender Identity Female 07/01/2024 2:18 PM CDT Sexual Orientation Not on file documented as of this encounter Plan of Treatment Upcoming Encounters Date Type Department Care Team (Late st Contact Info) Description 07/08/2024 2:00 PM CDT Office Visit [facility] [place] [address] [place] [address] Alexandria Larkin NP [address] [facility] [address] [place] [address] 07/13/2024 10:00 AM CDT [facility] [address] [facility] [place] [phone] Henri Doherty PA-C [address] [facility] [address] [place] [address] 07/23/2024 8:30 AM CDT Laboratory [facility] [place] [address] [address] [place] [address] Alexandria Larkin NP [address] [facility] [address] [place] [address] 09/24/2024 2:20 PM CDT [facility] [address] [facility] [place] [phone] Alverto Frias MD 3 [facility] [place] [address] 12/16/2024 8:00 AM CDT [facility] [address] [place] [address] Alexandria Larkin NP [address] [facility] [address] [place] [address] 12/16/2024 8:30 AM CDT Office Visit [facility] - [place] [address] [place] [address] Alexandria Larkin NP [address] [facility] [address] [place] [address] documented as of this encounter Visit Diagnoses Not on filedocumented in this encounter Additional Health Concerns Infection Onset Date Last Indicated Resolved Time COVID-19 Rule Out 01/02/2024 01/02/2024 01/02/2024 5:02 PM YOGA COORDINATOR documented as of this encounter Care Teams Meter Installer And Remover Relationship Specialty Start Date End Date Alexandria Larkin NP [address] [place] [address] PCP - General NURSE PRACTITIONER 10/16/23 documented as of this encounter
--- OUTSIDE RECORDS SUMMARY | 2024-07-02 17:04 | XMS_ITS | Encounter Summary ---
Author Organization [facility] Address [address] [place] [address] Care Team Providers Care Application Counselor Name Role Phone Alexandria Larkin BRIMMER BLOCKER Primary Care Provider [phone] Encounter Details Date Type Department Care Team (Latest Contact Info) Description 11/18/2023 MyChart Message Enc [facility] Mult[facility]pecialty Care - [facility] [address] [facility], [address] [place] [phone] Keiry Vernon NP [address] [facility] [address] [place] [address] Appointment change Social History Tobacco Use Types Packs/Day Years [...] Description 07/08/2024 2:00 PM CDT [facility] [place] [address] [place] [address] Alexandria Larkin NP [address] [facility] [address] [place] [address] 07/13/2024 10:00 AM CDT [facility] [address] [facility] [place] [phone] Henri Doherty PA-C [address] [facility] [address] [place] [address] 07/23/2024 8:30 AM CDT [facility] [place] [address] [facility] [address] [place] [address] Alexandria Larkin NP [address] [facility] [address] [place] [address] 09/24/2024 2:20 PM CDT [facility] [address] [facility] [place] [phone] Alverto Frias MD 3 [facility], [address] [place] [address] 12/16/2024 8:00 AM CDT [facility] [place] [address] [facility] [address] [place] [address] Alexandria Larkin NP [address] [facility] [address] [place] [address] 12/16/2024 8:30 AM CDT Office Visit [facility] Multispecialty Care - [place] [address] [place] [address] Alexandria Larkin NP [address] [place] [address] documented as of this encounter Visit Diagnoses Not on filedocumented in this encounter Additional Health Concerns Infection Onset Date Last Indicated Resolved Time COVID-19 Rule Out 01/02/2024 01/02/2024 01/02/2024 5:[address]INEER FREIGHT documented as of this encounter Care Teams Application Counselor Relationship Specialty Start Date End Date Alexandria Larkin NP [address] [place] [address] PCP - General NURSE PRACTITIONER 10/16/23 documented as of this encounter
--- OUTSIDE RECORDS SUMMARY | 2024-07-02 17:04 | XMS_ITS | Clinical Summary ---
Author Organization [facility] Address [address] [place] [address] Care Team Providers Care Manager Product Management Name Role Phone Unavailable Primary Care Provider Unavailabl e Source Comments [facility],non-owned Affiliates and Associated Physician Practices is amultiple site organization consisting of ambulatory clinics and hospital sitesin [place], [place], [place] and [place]. This disclosure is being madepursuant to the Care Everywhere program and may not contain all information available regarding this patient. Last updated 17.[facility] Allergies No known active allergies Medications * Be aware that medications may not be up to date on this document. Alwaysverify current medications with the patient. Airsupra 90-80 MCG/ACT AERO INHALE 2 PUFFS EVERY 4 TO 6 HOURS NEEDED FOR WHEEZING OR SHORTNESS OF BREATH 4 Active aspirin EC (Ecotrin) 81 MG tablet Take 1 (one) tablet by mouth once daily Active omeprazole (PriLOSEC) 40 MG capsule Take 1 (one) capsule by mouth every 24 hours 4 Active ondansetron, disintegrating, (Zofran ODT) 4 MG tablet Take 1 (one) tablet by mouth every 6 hours as needed 4 Active Breztri Aerosphere 160-9-4.8 MCG/ACT inhaler 2 (two) puffs 2 times daily 4 Active Social History Tobacco Use Types Packs/Day Years Used Date Smoking Tobacco: Former Cigarettes Smokeless Tobacco: Never Alcohol Use Standard Drinks/Week Comments Never 0 (1 standard drink = 0.6 oz pur e alcohol) PHQ-2 Answer Date Recorded Patient Health Questionnaire-2 Score 0 11/14/2023 Comments Unknown Sex and Gender Information Value Date Recorded Sex Assigned at Female 12/25/2023 4:29 PM CDT Legal Sex Female 2:59 PM CDT Gender Identity Female 12/25/2023 4:29 PM CDT Sexual Orientation Straight 12/25/2023 4: 29 PM CDT Last Filed Vital Signs Vital Sign Reading Time Taken Comments Blood Pressure 121/76 11/14/2023 9:18 AM CDT Pulse 59 11/14/2023 9:18 AM CDT Temperature 36.8 C (98.2 F) 11/14/2023 9:18 AM CDT Respiratory Rate 20 11/14/2023 9:18 AM CDT Oxygen Saturation 97% 11/14/2023 9:18 AM CDT Inhaled Oxygen Concentration - - Weight 48.7 kg (107 lb 6.4 oz) 11/14/2023 9:18 A M CDT Height 157.5 cm (5' 2 ) 11/14/2023 9:18 AM CDT Body Mass Index 19.64 11/14/2023 9:18 AM CDT Plan of Treatment Health Maintenance Due Date Last Done Comments BONE DENSITY TESTING 1955 COLOGUARD (AGES 45-75) - COL ON CA SCREENING [address] COLONOGRAPHY - COLON CA SCREENING 1955 FIT - COLON CA SCREENING 1955 FLEX SIG - COLON CA SCREENING 1955 LIPID TESTING 1955 MAMMOGRAM 1955 MEDICARE AWV 12 MONTHS 1955 DTAP/TDAP/TD VACCINES (1 - Tdap) 05/13/1974 PNEUMOCOCCAL VACCINE 50+ (1 of 1 - PCV) 05/13/2005 ZOSTER VACCINE (1 of 2) 05/13/2005 COVID-19 VACCINE ( - 2023-2 5 season) 2023 DEPRESSION SCREENING 02/26/2024 11/14/2023 INFLUENZA VACCINE (Season Ended) 2024 Respiratory Syncytial Virus (RSV) Vaccine Pt: or over 60 yrs (1 - 1-dose 75+ series) 05/13/2030 COLONOSCOPY - COLON CA SCREENING 08/26/2031 08/26/19 Colorectal Cancer Screening 08/26/2031 HEPATITIS C SCREENING Completed 10/16/2023 HEPATITIS B VACCINE Aged Out No longe r eligible based on patient's age to complete this topic HIB VACCINE Aged Out No longer eligi ble based on patient's age to complete this topic HPV VACCINE Aged Out No longer eligi ble based on patient's age to complete this topic MENINGOCOCCAL (Group B) VACC INE SHARED DECISION-MAKING Aged Out No longer eligibl e based on patient's age to complete this topic MENINGOCOCCAL GROUPS A/C/Y/W VACCINE Aged Out No longer eligible b ased on patient's age to complete this topic Insurance [facility] MEDICARE
--- OUTSIDE RECORDS SUMMARY | 2024-07-02 17:04 | XMS_ITS | Encounter Summary ---
Author Organization [facility] Address [address] [place] [address] Care Team Providers Care Lumber Carrier Operator Name Role Phone ChayaAlexandria gonsalez Tamara PATTERNMAKER BENCH Primary Care Provider [phone] Encounter Details Date Type Department Care Team (Late Contact Info) Description 11/18/2023 Apajat Message Enc [facility] THREE [facility], [address] [id number] Naveen Vargas MD [facility]. [address] [phone] Appointment change Social History Tobacco Use Types [...] Encounters Date Type Department Care Team (Late Contact Info) Description 07/08/2024 2:00 PM CDT Office Visit [facility] [place] [address] [address] [facility] [address] [place] [address] Alexandria Larkin, PATTERNMAKER BENCH [address] [facility] [address] [place] [address] 07/13/2024 10:00 AM CDT [facility] [place] [facility] [address] [facility] [place] [address] Henri Doherty PA-C 3 [facility] [address] [place] [address] 07/23/2024 8:30 AM CDT Laboratory Only [facility] [place] [facility] [place] [address] [place] [address] [address] [place] [address] Alexandria Larkin, YOVANNY [address] [facility] [address] [place] [address] 09/24/2024 2:20 PM CDT [facility] [place] [facility] [address] [facility], [address] [place] [phone] Alverto Frias MD 3 [facility], [address] [place] [address] 12/16/2024 8:00 AM CDT [facility] [place] [address] [address] [facility] [address] [place] [address] Alexandria Larkin, PATTERNMAKER BENCH [address] [facility] [address] [place] [address] 12/16/2024 8:30 AM CDT Office Visit [facility] Medical Group Multispecialty Care - [place] [address] [place] [address] Alexandria Larkin NP [address] [place] [address] documented as of this encounter Visit Diagnoses Not on filedocumented in this encounter Additional Health Concerns Infection Onset Date Last Indicated Resolved Time COVID-19 Rule Out 01/02/2024 01/02/2024 01/02/2024 5:[address]GE documented as of this encounter Care Teams Lumber Carrier Operator Relationship Specialty Start Date End Date Alexandria Larkin NP [address] [place] [address] PCP - General NURSE PRACTITIONER 10/16/23 documented as of this encounter
--- OUTSIDE RECORDS SUMMARY | 2024-07-02 17:04 | XMS_ITS | Encounter Summary ---
Author Organization [facility] Address [address] [place] [address] Care Team Providers Care Disaster Recovery Coordinator Name Role Phone Alexandria Larkin AUTO PARTS CLERK Primary Care Provider [phone] Encounter Details Date Type Department Care Team (Late Contact Info) Description 11/15/2023 MyChart Message [facility] [address] [facility] [address] [place], [place] [address] Alexandria Larkin, AUTO PARTS CLERK [address] [facility] [address] [place], [place] [id number] F/u question Social History Tobacco Use Types Packs/Day Years [...] Description 07/08/2024 2:00 PM CDT Office Visit [facility] Multispecialty [place] [address] [address] [facility] [address] [place] [address] Alexandria Larkin NP [address] [facility] [address] [place] [address] 07/13/2024 10:00 AM CDT [facility] [place] [facility] [address] [facility] [place] [address] Henri Doherty PA-C 3 [facility] [address] [place] [address] 07/23/2024 8:30 AM CDT Laboratory Only [facility] [place] [address] [address] [address] [address] [place] [address] Alexandria Larkin NP [address] [facility] [address] [place] [address] 09/24/2024 2:20 PM CDT [facility] [place] [facility] 3 [facility], [address] [place] [address] Alverto Frias MD 3 [facility], [address] [place] [address] 12/16/2024 8:00 AM CDT [facility] [place] [address] [address] [facility] [address] [place] [address] Alexandria Larkin, YOVANNY [address] [facility] [address] [place] [address] 12/16/2024 8:30 AM CDT Office Visit [facility] Medical Group Multispecialty Care - [place] [address] [place] [address] Alexandria Larkin NP [address] [place] [address] documented as of this encounter Visit Diagnoses Not on filedocumented in this encounter Additional Health Concerns Infection Onset Date Last Indicated Resolved Time COVID-19 Rule Out 01/02/2024 01/02/2024 01/02/2024 5:02 PM STORAGE MANAGEMENT CONSULTANT documented as of this encounter Care Teams Disaster Recovery Coordinator Relationship Specialty Start Date End Date Alexandria Larkin NP [address] [place] [address] PCP - General NURSE PRACTITIONER 10/16/23 documented as of this encounter
--- OUTSIDE RECORDS SUMMARY | 2024-07-02 17:04 | XMS_ITS | Encounter Summary ---
Author Organization [facility] Address [address] [place] [address] Care Team Providers Care Research Computing Specialist Name Role Phone Alexandria Larkin FISHER WEIR Primary Care Provider Reason for Visit * Reason Onset Date Comments Question 06/30/2024 Encounter Details Date Type Department Care Team (Late st Contact Info) Description 06/30/2024 Telephone [facility] Medical Group Multispecialty Care - [place] [address] [facility] [address] [place] [address] Alexandria Larkin, YOVANNY [address] [place], [place] [id number] Question Social History Tobacco Use Types Packs/Day Years [...] on file documented as of this encounter Progress Notes * Danelle Rouse - 07/01/2024 7:26 AM CDT Called and spoke to patient. Scheduled with Alexandria at 220 today. * Danelle Rouse - 06/30/2024 2:25 PM CDT Patient called and stated that she has had really bad leg cramps since 3am and has also nausea and vomiting. Patient stated that she thinks the nausea is from the pain in her legs and is requesting amuscle relaxer. She would like a nurse to call and speak to her today. documented in this encounter Plan of Treatment Upcoming Encounters Date Type Department Care Team (Late st Contact Info) Description 07/08/2024 2:00 PM CDT [facility] [place] [address] [address] [facility] [address] [place] [address] Alexandria Larkin, FISHER WEIR [address] [facility] [address] [place] [address] 07/13/2024 10:00 AM CDT [facility] [address] [facility] [place] [address] Henri Doherty PA-C [address] [facility] [address] [place] [address] 07/23/2024 8:30 AM CDT Laboratory Only [facility] - [place] [address] [place] [address] Alexandria Larkin, FISHER WEIR [address] [facility] [address] [place] [address] 09/24/2024 2:20 PM CDT Office Visit [facility] - [facility] 3 [facility], [facility] [address] [place] [address] Alverto Frias MD 3 [facility], [facility] [address] [place] [address] 12/16/2024 8:00 AM CDT [facility] - [place] [address] [place] [address] Alexandria Larkin NP [address] [facility] [address] [place] [address] 12/16/2024 8:30 AM CDT [facility] [address] [place] [address] Alexandria Larkin NP [address] [facility] [address] [place] [address] documented as of this encounter Visit Diagnoses Not on filedocumented in this encounter Additional Health Concerns Assessment Noted Time PHQ-9 Depression Total Score: 2 06/06/19 25 2:41 PM CDT documented as of this encounter Care Teams Research Computing Specialist Relationship Specialty Start Date End Date Alexandria Larkin NP [address] [place] [address] PCP - General NURSE PRACTITIONER 10/16/23 documented as of this encounter
--- OUTSIDE RECORDS SUMMARY | 2024-07-02 17:04 | XMS_ITS | Encounter Summary ---
Author Organization [facility] Address [address] [place] [address] Care Team Providers Care Lining Presser Name Role Phone Alexandria Larkin SENIOR WEB ENGINEER Primary Care Provider Encounter Details Date Type Department Care Team (Late Contact Info) Description 07/02/2024 MyChart Message Enc [facility] Medical [facility] Multispecialty Care - [place] [address] [facility] [address] [place], [place] [address] Alexandria Larkin, SENIOR WEB ENGINEER [address] [place], [place] [address] [address] Social History Tobacco Use Types Packs/Day Years [...] Description 07/08/2024 2:00 PM CDT [facility] [place] [address] [place] [address] Alexandria Larkin NP [address] [facility] [address] [place] [address] 07/13/2024 10:00 AM CDT [facility] 3 [facility] [place] [address] Henri Doherty PA-C 3 [facility] [address] [place] [address] 07/23/2024 8:30 AM CDT Laboratory [facility] - [place] [address] [address] [facility] [address] [place] [address] Alexandria Larkin NP [address] [facility] [address] [place] [address] 09/24/2024 2:20 PM CDT [facility] 3 [facility], [address] [place] [address] Alverto Frias MD 3 [facility], [address] [place] [address] 12/16/2024 8:00 AM CDT [facility] - [place] [address] [facility] [address] [place] [address] Alexandria Larkin SENIOR WEB ENGINEER [address] [facility] [address] [place] [address] 12/16/2024 8:30 AM CDT Office Visit [facility] Medical Group Multispecialty Care - [place] [address] [place] [address] Alexandria Larkin NP [address] [facility] [address] [place] [address] documented as of this encounter Visit Diagnoses Not on filedocumented in this encounter Additional Health Concerns Assessment Noted Time PHQ-9 Depression Total Score: 2 06/06/19 25 2:41 PM CDT documented as of this encounter Care Teams Lining Presser Relationship Specialty Start Date End Date Alexandria Larkin NP [address] [facility] [address] [place] [address] PCP - General NURSE PRACTITIONER 10/16/23 documented as of this encounter
--- OUTSIDE RECORDS SUMMARY | 2024-07-02 17:04 | XMS_ITS | Encounter Summary ---
Author Organization [facility] Address [address] [place] [address] Care Team Providers Care Repertoire Manager Name Role Phone Alexandria Larkin FLEET MAINTENANCE MANAGER Primary Care Provider Reason for Visit * Reason Onset Date Comments Information 07/02/2024 Encounter Details Date Type Department Care Team (Late st Contact Info) Description 07/02/2024 Telephone [facility] Medical Group Multispecialty Care - [place] [address] [facility] [address] [place] [address] Alexandria Larkin, YOVANNY [address] [place] [address] Information Social History Tobacco Use Types Packs/Day Years [...] as of this encounter Progress Notes * Carmencita Gregory - 07/02/2024 1:58 PM CDT Pt is still not feeling very well and said that Alexandria had offered a head scan if she was still not doing good since she hit her head when she fell. She is interested in this and wants to know if there is anyway to get it done at [place] so she can avoid the long drive. Please advise. documented in this encounter Plan of Treatment Upcoming Encounters Date Type Department Care Team (Late st Contact Info) Description 07/08/2024 2:00 PM CDT [facility] [place] [address] [facility] [address] [place] [address] Alexandria Larkin NP [address] [facility] [address] [place] [address] 07/13/2024 10:00 AM CDT Office Visit [facility] - [address] [place] [phone] Henri Doherty PA-C 3 [facility] [address] [place] [address] 07/23/2024 8:30 AM CDT Laboratory Only [facility] - [place] [address] [facility] [address] [place] [address] Alexandria Larkin NP [address] [facility] [address] [place] [address] 09/24/2024 2:20 PM CDT Office Visit [facility] - [facility] [address] [facility], [address] [place] [phone] Alverto Frias MD 3 [facility], [address] [address] 12/16/2024 8:00 AM CDT Office Visit [facility] Medical Group Multispecialty Care - [place] [address] [place] [address] Alexandria Larkin FLEET MAINTENANCE MANAGER [address] [facility] [address] [place] [address] 12/16/2024 8:30 AM CDT [facility] [place] [address] [address] [facility] [address] [place] [address] Alexandria Larkin FLEET MAINTENANCE MANAGER [address] [facility] [address] [place] [address] documented as of this encounter Visit Diagnoses Not on filedocumented in this encounter Additional Health Concerns Assessment Noted Time PHQ-9 Depression Total Score: 2 06/06/19 25 2:41 PM CDT documented as of this encounter Care Teams Repertoire Manager Relationship Specialty Start Date End Date Alexandria Larkin NP [address] [facility] [address] [place] [address] PCP - General NURSE PRACTITIONER 10/16/23 documented as of this encounter
--- OUTSIDE RECORDS SUMMARY | 2024-07-02 17:04 | XMS_ITS | Encounter Summary ---
Author Organization [facility] Address [address] [place] [address] Care Team Providers Care Program Management Professional Name Role Phone Alexandria Larkin CASE MAKER Primary Care Provider [phone] Encounter Details Date Type Department Care Team (Late st Contact Info) Description 12/30/2023 Abstract [facility] [address] [place] Samuel MA Social History Tobacco Use Types Packs/Day Years Used Date Smoking Tobacco: Former Cigarettes Q uit: 02/26/2008 Passive Smoke Exposure: Past Smokeless Tobacco: Never Alcohol Use Standard Drinks/Week Comments Not Currently 0 (1 standard drink = 0.6 oz pur e alcohol) PHQ-2 Answer Date Recorded Patient Health Questionnaire-2 Score 0 12/03/2023 Comments No Sex and Gender Information Value Date Recorded Sex Assigned at Female 07/01/2024 2:18 PM CDT Legal Sex Female 8:11 PM CDT Gender Identity Female 07/01/2024 2:18 PM CDT Sexual Orientation Not on file documented as of this encounter Plan of Treatment Upcoming Encounters Date Type Department Care Team (Late st Contact Info) Description 07/08/2024 2:00 PM CDT Office Visit [facility] Medical Group Multispecialty Care - [place] [address] [facility] [address] [place] [address] Alexandria Larkin, CASE MAKER [address] [facility] [facility] [address] [place] [address] 07/13/2024 10:00 AM CDT Office Visit [facility] - [facility] [address] [facility] [place] [phone] Henri Doherty PA-C 3 [facility] [address] [place] [address] 07/23/2024 8:30 AM CDT Laboratory [facility] - [place] [address] [facility] [address] [place] [address] Alexandria Larkin NP [address] [facility] [facility] [address] [place] [address] 09/24/2024 2:20 PM CDT Office Visit [facility] Multispecialty [facility] Emergency [facility] - [facility] 3 [facility], [address] [place] [address] Alverto Frias MD 3 [facility], [address] [place] [address] 12/16/2024 8:00 AM CDT Office Visit [facility] Multispecialty [facility] Emergency Department - [place] [address] [place] [address] Alexandria Larkin NP [address] [facility] [facility] [address] [place] [address] 12/16/2024 8:30 AM CDT [facility] - [place] [address] [place] [address] Alexandria Larkin, CASE MAKER [address] [place] [address] documented as of this encounter Procedures Procedure Name Priority Date/Time Associated Diagnosis Comments LIPID PANEL Routine 12/28/2023 documented in this encounter Results * LIPID PANEL (12/28/2023) CHOLESTEROL 212 HDL 78 TRIGLYCERIDES 78 LDL (CALCULATED) 120 12/28/2023 us Default History Genericprovider LABORATORY Final Result documented in this encounter Visit Diagnoses Not on filedocumented in this encounter Additional Health Concerns Infection Onset Date Last Indicated Resolved Time COVID-19 Rule Out 01/02/2024 01/02/2024 01/02/2024 5:02 PM DOCUMENT DESIGN SPECIALIST documented as of this encounter Care Teams Program Management Professional Relationship Specialty Start Date End Date Alexandria Larkin, CASE MAKER [address] [place] [address] PCP - General NURSE PRACTITIONER 10/16/23 documented as of this encounter
--- OUTSIDE RECORDS SUMMARY | 2024-07-02 17:04 | XMS_ITS | Encounter Summary ---
Author Organization [facility] Address [address] [place] [address] Care Team Providers Care Share Dairy Farmer Name Role Phone Alexandria Larkin MC KAY MACHINE OPERATOR Primary Care Provider [phone] Encounter Details Date Type Department Care Team (Latest Contact Info) Description 07/01/2024 Travel Social History Tobacco Use Types Packs/Day Years [...] Description 07/08/2024 2:00 PM CDT Office Visit [facility] Medical Group Multispecialty Care - [place] [address] [place] [address] Alexandria Larkin, MC KAY MACHINE OPERATOR [address] [place] [address] 07/13/2024 10:00 AM CDT Office [facility] - [facility] 3 [facility] [place] [address] Henri Doherty PA-C 3 [facility] [address] [place] [address] 07/23/2024 8:30 AM CDT Laboratory Only [facility] [place] - [place] [address] [place] [address] Alexandria Larkin NP [address] [place] [address] 09/24/2024 2:20 PM CDT [facility] [place] [facility] 3 [facility], [address] [place] [address] Alverto Frias MD [address] [facility], [address] [place] [address] 12/16/2024 8:00 AM CDT [facility] [place] - [place] [address] [place] [address] Alexandria Larkin NP [address] [place] [address] 12/16/2024 8:30 AM CDT [facility] [place] [facility] [place] [address] [place] [address] Alexandria Larkin NP [address] [place] [address] documented as of this encounter Visit Diagnoses Not on filedocumented in this encounter Additional Health Concerns Assessment Noted Time PHQ-9 Depression Total Score: 2 06/06/19 25 2:41 PM CDT documented as of this encounter Care Teams Share Dairy Farmer Relationship Specialty Start Date End Date Alexandria Larkin, MC KAY MACHINE OPERATOR [address] [facility] [address] [place] [address] PCP - General NURSE PRACTITIONER 10/16/23 documented as of this encounter
--- OUTSIDE RECORDS SUMMARY | 2024-07-02 17:04 | XMS_ITS | Clinical Summary ---
Author Organization [facility] Address [address] [place] [address] Care Team Providers Care Conveyor Man Name Role Phone Keiry Watt DO Primary [...] colon 3 Adenocarcinoma of sigmoid colon 03/07/2012 Surgical History Surgery Date Site/Laterality Comments LEFT COLECTOMY 02/26/2012 - 02/24/2013 HYSTERECTOMY 02/25/1982 - 02/24/1983 SECTION x2 COLONOSCOPY Medical History Medical History Date Comments Asthma Arthritis Colon cancer (HCC) 2012 GERD (gastroesophageal reflux disease) PONV (postoperative nausea and vomiting) COPD (chronic obstructive pulmonary disease) (HC C) Social History Tobacco Use Types Packs/Day Years Used Date Smoking Tobacco: Former Cigarettes 1 33 1 975 - 2008 Smokeless Tobacco: Never AUDIT-C Answer Date Recorded [...] on file Legal Sex Female 4:25 AM MILITARY ADMINISTRATIVE TECHNICIAN Gender Identity Not on file Sexual Orientation Not on file Obstetrics History Last Filed Vital Signs Vital Sign Reading [...] 08/25/2021 10:20 AM CDT Plan of Treatment Health Maintenance Due Date Last Done Comments Breast Cancer Screening-Mammogram 1955 Depression Screening 1955 Hepatitis C Screening 1955 Osteoporosis Screening-Bone Density Scan 1955 Hepatitis B Screening 05/13/1973 Pneumococcal vaccine 65+ (2 of 2 - PPSV23) 11/29/2016 11/30/2015 Well Visit 65+ 05/13/2020 Fall Risk Assessment 08/25/2022 08/25/2021 Covid-19 Vaccine (2023-2 5 season) 2023 07/19/2021, 12/14/2020, 05/13/2020, Additional history exists Influenza Vaccine (#1) 2023 , 11/08/2019, 12/18/2018, Additional history exists DTaP/Tdap/Td Vaccine (2 - Td or Tdap) 07/14/2026 07/14/2016 Colon Cancer Screening-Colonoscopy 08/26/2031 08/25/2021, 05/31/2016, 05/01/2013 Zoster Vaccine Completed 01/07/2020, 10/26, 11/30/2015 Procedures Procedure Name Priority Date/Time Associated Diagnosis [...] Female Attending MD: Jeromy Sierra M.D. Room: [facility] ENDOSCOPY ROOM 02 Note Status: Finalized Procedure: Colonoscopy Indications: High risk colon cancer surveillance: Personalhistory of colon cancer, Last colonoscopy 5 years ago Providers: Jeromy iSerra M.D. Referring MD: Keiry Watt D.O. Medicines: [...] The scope was passed under direct vision.The [id number] was introduced through the anusand advanced to the cecum, identified by appendiceal orifice and ileocecal valve. The colonoscopy was performed with ease. The patient tolerated the procedure well. The quality of the bowelpreparation was excellent. The quality of the bowel preparation was evaluated using the BBPS ([place] BowelPreparation Scale) with scores of: Right Colon [...] Most Recently Relevant to Health Maintenance Insurance [facility] Advance Directives For more information, please contact: [phone] * Full Code (Latest Code Status on File) Date Activated Date Inactivated Comments 08/25/2021 10:14 AM 08/25/2021 4:25 PM Care Teams Conveyor Man Relationship Specialty Start Date End Date Keiry Watt DO [address] [place] [id number] PCP - General Family Medicine 02/19/19
--- OUTSIDE RECORDS SUMMARY | 2024-07-02 17:04 | XMS_ITS | Clinical Summary ---
Author Organization [facility] Address [address] [place] [address] Care Team Providers Care Tailings Man Name Role Phone Chaya Alexandria Mcdonald PERMASTONE MECHANIC Primary Care Provider Allergies Active Allergy Reactions Criticality Noted Date Comments Doxycycline Nausea and Vomiting 10/16/2023 Medications BREZTRI AEROSPHERE 160-9-4.8 MCG/ACT inhalerIndicati ons:Pulmonary emphysema, unspecified emphysema type (CMS/HCC HHS/HCC) Inhale 2 puffs into the lungs 2 (two) times daily. Rinse mouth after use 10.7 g 3 11/20/19 24 Active aspirin EC (ECOTRIN) 81 MG tablet Take 1 tablet (81 mg total) by mouth daily. 12/25/19 24 Active fexofenadine (FAUSTO) 180 MG tablet Take 1 tablet (180 mg total) by mouth daily. 06/06/19 25 Active omeprazole (PRILOSEC) 40 MG capsuleIndicati ons:Epigastric pain Take 1 capsule by mouth once daily 30 capsule 07/01/19 25 Active sertraline (ZOLOFT) 25 MG tabletIndicatio ns:Anxiety Take 1 tablet by mouth once daily 30 tablet 07/02/19 25 Active omeprazole (PRILOSEC) 40 MG capsuleIndicati ons:Epigastric pain Take 1 capsule by mouth once daily 30 capsule 05/30/19 25 025 Discontinued sertraline (ZOLOFT) 25 MG tabletIndicatio ns:Anxiety Take 1 tablet by mouth once daily 30 tablet 05/30/19 25 025 Discontinued sertraline (ZOLOFT) 25 MG tabletIndicatio ns:Anxiety Take 1 tablet by mouth once daily 30 tablet 07/01/19 25 025 Discontinued(Re order) Active Problems Problem Noted Date Diagnosed Date THERESA (generalized anxiety disorder) 06/07/2024 Abnormal kidney function 06/05/2024 Abnormal findings on dx imaging of prt digestive tract 01/06/2024 Chronic GERD 12/03/2023 H/O gastroesophageal reflux (GERD) 12/03/2023 Dysphagia 12/03/2023 Nausea 11/15/2023 Jejunitis 10/25/2023 Adenocarcinoma of sigmoid colon ([facility] ) 10/25/2023 Mixed hyperlipidemia 10/16/2023 Gastroesophageal reflux disease without esophagi tis 10/16/2023 Chronic bronchitis, unspecif ied chronic bronchitis type ([facility]) 10/16/2023 Epigastric pain 10/16/2023 History of colon cancer 10/16/2023 History of colectomy 10/16/2023 Resolved Problems Problem Noted Date Diagnosed Date Resolved Date Anxiety 01/03/2024 06/07/2024 Chest pain, unspecified type 11/27/2023 11/27/2023 Encounters Date Type Department Care Team Description 07/02/2024 MyChart Message Enc [place] [address] [place] [address] [address] L[address] NP Head CT 07/02/2024 Telephone [place] [address] [facility] [address] [place] [address] Alexandria Larkin NP Information 07/01/2024 2:20 PM CDT Office Visit [place] [address] [place] [address] Alexandria Larkin, YOVANNY Leg Pain; Head Injury; Shoulder Pain; Syncope 07/01/2024 Orders Only [place] [address] [place] [address] Alexandria Larkin, PERMASTONE MECHANIC 07/01/2024 [facility] - [place] [id number] [facility] [address] [place] [address] Alexandria Larkin, PERMASTONE MECHANIC EKG WELCHALLEN ACQUIRED, CBC W/DIFF AUTOMATED, COMPREHENSIVE METABOLIC PANEL, Additional followed-up results: 4 07/01/2024 Travel 06/30/2024 [facility]phone [facility] [place] [address] [facility] [address] [place] [address] Alxeandria Larkin, PERMASTONE MECHANIC Question 06/26/2024 2:39 PM CDT - 06/26/2024 11:59 PM CDT Hospital Encounter [facility] Ultrasound [address] [place] [place] [address] Alexandria Larkin, PERMASTONE MECHANIC Discharge Disposition: Home or Self Care (Routine Discharge) 06/26/2024 Travel 06/11/2024 Orders Only [facility] [place] [address] [facility] [address] [place] [address] Alexandria Larkin, PERMASTONE MECHANIC 06/10/2024 Telephone [facility] [place] [address] [address] [facility] [address] [place] [address] Alexandria Larkin, PERMASTONE MECHANIC Results 06/08/2024 Orders Only [facility] [place] [address] [address] [facility] [address] [place] [address] Alexandria Larkin, PERMASTONE MECHANIC 06/07/2024 Results [facility] [place] [address] [address] [facility] [address] [place] [address] Alexandria Larkin, PERMASTONE MECHANIC VITAMIN D 25 OH, COMPREHENSIVE METABOLIC PANEL 06/05/2024 1:20 PM CDT Office Visit [facility] [place] [address] [place] [address] Alexandria Larkin, YOVANNY Medication Check 06/05/2024 Travel from Last 3 Months Immunizations Immunization Administration Dates Next Due Influenza Adult (Generic) 12/16/2021,,11/08/2019,2018,12/01/2015,12/20/2014,11/15/2013,1 ,03/09/2012,12/22/2010 MODERNA COVID-19 BIVALENT (1 2+), MRNA, LNP-S, PF 02/15/2022 MODERNA COVID-19 (12+) MRNA, LNP-S, PF, 100 MCG/ 0.5 ML DOSE 07/19/2021,12/14/2020 Pneumococcal (Pneumovax 23) 12/22/2010 Pneumococcal (Prevnar 13) 12/21/2015 Pneumococcal (Prevnar 20) 06/23/2022 Shingrix 12/14/2020,11/08/2019 Tdap (Generic) 07/15/2016 Zoster (Zostavax) [address]377 Unt/0.65Ml 12/01/2015 Family History Medical History Relation Comments Heart Attack Brother Diabetes Mother Heart Attack Sister Hypertension Sister Relation Status Comments Brother Father Mother Sister Alive Social History Tobacco Use Types Packs/Day Years [...] PM CDT Sexual Orientation Not on file Last Filed [...] Mass Index 18.62 07/01/2024 2:20 PM CDT Plan of Treatment Upcoming Encounters Date Type Department Care Team (Late st Contact Info) Description 07/08/2024 2:00 PM CDT [facility] [place] [address] [address] [place] [address] Alexandria Larkin NP [address] [facility] [address] [place] [address] 07/13/2024 10:00 AM CDT Office Visit [facility] - [address] [place] [phone] Henri Doherty PA-C [address] [facility] [address] [place] [address] 07/23/2024 8:30 AM CDT Laboratory Only [facility] - [place] [address] [address] [facility] [address] [place] [address] Alexandria Larkin NP [address] [facility] [address] [place] [address] 09/24/2024 2:20 PM CDT [facility] [address] [facility], [address] [place] [phone] Alverto Frias MD [address] [facility], [address] [address] 12/16/2024 8:00 AM CDT Office Visit [facility] - [place] [address] [place] [address] Alexandria Larkin, PERMASTONE MECHANIC [address] [place] [address] 12/16/2024 8:30 AM CDT Office Visit [facility] - [place] [address] [place] [address] Alexandria Larkin, PERMASTONE MECHANIC [address] [facility] [address] [place] [address] Health Maintenance Due Date Last Done Comments Kidney Health Evaluation 1955 Hemoglobin A1C 1955 Diabetes: Retinopathy Eye Exam 05/13/1973 Annual Medicare Wellness Visit 05/13/2020 Dexa Scan (General) 05/13/2020 COVID-19 Vaccine (4 - 2023-2 5 season) 2023 02/15/2022, 07/19/2021, 12/14/2020 RSV Immunization or 60+ Years (1 - Risk 60-74 years 1-dose series) 10/24/2024 Postponed from 2015 (Going to Outside Clinic) Lipid Panel 12/27/2024 12/28/2023 Mammogram Screening 02/05/2025 02/05/2023 DTaP, Tdap and Td Vaccines ( 2 - Td or Tdap) 07/15/2026 07/15/2016 Zoster Vaccines Completed 12/14/2020, 11/08/2019, 12/01/2015 Colorectal Cancer Screening Colonoscopy (10 Years) Discontinued 08/25/2021, 08/25/2021 Pneumococcal Vaccine: 50+ Years Completed 06/23/2022, 12/21/2015, 12/22/2010 Hepatitis C Completed 10/16/2023 PHQ-2 (Physician [place]) Completed 06/05/2024 Meningococcal B Vaccine Aged Out No l onger eligible based on patient's age to complete this topic Meningococcal Vaccine Aged Out No zoila ashley eligible based on patient's age to complete this topic RSV Immunizations Under 20 Months Aged Out No longer eligible b ased on patient's age to complete this topic Procedures Procedure Name Priority Date/Time Associated Diagnosis Comments URINALYSIS, AUTO, COMPLETE Routine 07/01/2024 7:07 PM CDT Abnormal kidney function ALBUMIN URINE RANDOM W/CREATININE Routine 07/01/2024 7:06 PM CDT Type 2 diabetes mellitus without complication, without long-term current use of insulin ([facility]) TSH W/REFLEX Routine 07/01/2024 3:45 PM CDT Syncope, unspecified syncope type Other hyperlipidemia MAGNESIUM Routine 07/01/2024 3:45 PM CDT Leg cramps Syncope, unspecified syncope type COMPREHENSIVE METABOLIC PANEL Routine 07/01/2024 3:45 PM CDT Leg cramps Syncope, unspecified syncope type CBC W/DIFF AUTOMATED Routine 07/01/2024 3:45 PM CDT Leg cramps Syncope, unspecified syncope type ELECTROCARDIOGRAM (NON MIDMARK ACQUIRED) Routine 07/01/2024 3:42 PM CDT Syncope, unspecified syncope type Procedure Note - 07/01/2024 3:42 PM CDTThis note is in progress. [facility] [address] [place] [address] Test Date: 2024-07-01 Pat Name: SHEYLA PACE Department: 171 Room: Gender: Female Aerospace Physiological Technician: : 1955 Requested By: DEREJE BARBA Order Number: [id number] Reading MD: DEREJE BARBA Measurements Intervals Avery Rate: 73 P: 86 VT: 135 QRS: 84 QRSD: 92 T: 63 QT: 373 QTc: 411 Interpretive Statements SINUS RHYTHM COMPREHENSIVE METABOLIC PANEL Routine 06/05/2024 2:14 PM CDT Chronic GERD Abnormal kidney function VITAMIN D, 25 OH Routine 06/05/2024 2:14 PM CDT Vitamin D deficiency LIPID PANEL Routine 12/28/2023 HEPATITIS C ANTIBODY Routine 10/16/2023 10:56 AM CDT Need for hepatitis C screening test MAMMOGRAM GENERIC (SCAN ORDER) 02/05/2023 COLONOSCOPY GENERIC (SCAN ORDER) 08/25/2021 from Last 3 Months or Most Recently Relevant to Health Maintenance Results * (ABNORMAL) URINALYSIS (07/01/2024 7:07 PM CDT) COLOR (U) YELLOW 07/01/2024 8:23 PM CDT [facility] TRANSPARENCY CLEAR CLEAR 07/01/2024 8:23 PM CDT [facility] SPECIFIC GRAVITY (U) 1.010 1.003 - 1.040 07/01/2024 8:23 PM CDT [facility] U PH 5.5 5.0 - 9.0 07/01/2024 8:23 PM CDT [facility] PROTEIN RANDOM (U) NEGATIVE NEGATIVE 07/01/2024 8:23 PM CDT [facility] GLUCOSE (U) NEGATIVE NEGATIVE 07/01/2024 8:23 PM CDT [facility] KETONES MG/DL (U) NEGATIVE NEGATIVE 07/01/2024 8:23 PM CDT [facility] BILIRUBIN (U) NEGATIVE NEGATIVE 07/01/2024 8:23 PM CDT [facility] BLOOD (U) TRACE(A) NEGATIVE 07/01/2024 8:23 PM CDT [facility] UROBILINOGEN 0.2 0.0 - 2.0 EU/DL 07/01/2024 8:23 PM CDT [facility] NITRITES NEGATIVE NEGATIVE 07/01/2024 8:23 PM CDT [facility] LEUKOCYTES (U) NEGATIVE NEGATIVE 07/01/2024 8:23 PM CDT [facility] RBC/HPF 0-3 0 - 3 /HPF 07/01/2024 8:23 PM CDT [facility] WBC/HPF 0-3 0 - 3 /HPF 07/01/2024 8:23 PM CDT [facility] EPI/HPF 0-3 /HPF 07/01/2024 8:23 PM CDT [facility] BACTERIA (U) TRACE(A) NONE SEEN 07/01/2024 8:23 PM CDT [facility] URINE SPECIMEN OBTAINED BY CLEAN CATCH PROCEDURE / Unknown 07/01/2024 7:07 PM CDT Alexandria Larkin NP URINE ORDERABLES Final Resu lt [facility] [address] [place] [address], [place] [phone] * ALBUMIN URINE RANDOM W/CREATININE (07/01/2024 7:06 PM CDT) MICROALBUMIN (U) 3.0 <20 MG/L 07/03/19 25 10:45 AM CDT [facility] CREATININE RANDOM (U) 46.7 MG/DL 07/02/2024 10:27 AM CDT [facility] ALBUMIN/CREAT RATIO 6.4 <30 MG/G 07/02/2024 10:45 AM CDT [facility] URINE SPECIMEN / Unknown 07/01/2024 7:06 PM CDT Alexandria Larkin NP URINE ORDERABLES Final Resu lt Performing Organization Address [facility] Co de Phone Number [facility] [address] [place] [address], * TSH W/REFLEX (07/01/2024 3:45 PM CDT) TSH 1.962 0.358 - 3.740 uIU/ML 07/01/2024 8:00 PM CDT [facility] 07/01/2024 3:45 PM CDT Alexandria Larkin NP LABORATORY Final Resul t Performing Organization Address [facility] de Phone Number [facility] [address] [place] [address], * (ABNORMAL) COMPREHENSIVE METABOLIC PANEL (07/01/2024 3:45 PM CDT) Only the most recent of2 resultswithin the time period is included. SODIUM S/P/B 136 136 - 145 MMOL/L 07/01/2024 8:00 PM CDT [facility] POTASSIUM S/P/B 4.9 3.5 - 5.1 MMOL/L 07/01/2024 8:00 PM CDT [facility] CHLORIDE S/P/B 100 98 - 107 MMOL/L 07/01/2024 8:00 PM CDT [facility] CO2 31.4 21 - 32 MMOL/L 07/01/2024 8:00 PM CDT [facility] GLUCOSE 90 70 - 99 MG/DL 07/01/2024 8:00 PM CDT [facility] BUN 31(H) 7 - 18 MG/DL 07/01/2024 8:00 PM CDT [facility] CREATININE S/P/B 0.99 0.55 - 1.02 MG/DL 07/01/2024 8:00 PM [facility] CALCIUM S/P/B 9.9 8.4 - 10.5 MG/DL 07/01/2024 8:00 PM [facility] BILIRUBIN TOTAL S/P/B 0.4 0.2 - 1.0 MG/DL 07/01/2024 8:00 [facility] ALKALINE PHOSPHATASE S/P/B 87 55 - 142 U/L 07/01/2024 8:00 PM [facility] AST 29 15 - 37 U/L 07/01/2024 8:00 PM [facility] ALT 37 14 - 59 U/L 07/01/2024 8:00 PM [facility] TOTAL PROTEIN S/P/B 7.3 6.4 - 8.2 G/DL 07/01/2024 8:00 [facility] ALBUMIN S/P/B 3.8 3.4 - 5.0 G/DL 07/01/2024 8:00 [facility] ANION GAP 4.6(L) 5 - 15 MMOL/L 07/01/2024 8:00 [facility] Comment:REFERENCE RANGE NOT ESTABLISHED OSMOLALITY (CALC) 288 MOSM/KG 025 8:00 [facility] Comment:REFERENCE RANGE NOT ESTABLISHED GFR ESTIMATE 62(L) >90 ML/MIN/1. 73 M2 07/01/2024 8:00 PM [facility] GFR NOTES GFR REFERENCE S: 07/01/2024 8:00 PM [facility] Comment: THE ESTIMATED GFR IS CALCULATED USING [...] <15 ml/min/1.73 m2 07/01/2024 3:45 PM CDT Alexandria Larkin NP LABORATORY Final Resul t [facility] [address] [place] [address], * (ABNORMAL) CBC W/DIFF AUTOMATED (07/01/2024 3:45 PM CDT) WBC 7.07 4.00 - 10.80 x10'3/uL 07/01/2024 7:43 PM CDT [facility] RBC 4.59 4.10 - 5.40 x10'6/uL 07/01/2024 7:43 PM CDT [facility] HGB 14.1 12.0 - 16.0 G/DL 07/01/2024 7:43 PM CDT [facility] HCT 43.3 36.0 - 47.0 % 07/01/2024 7:43 PM CDT [facility] MCV 94.3 78.0 - 100.0 FL 07/01/2024 7:43 PM CDT [facility] MCH 30.7 27.0 - 31.0 PG 07/01/2024 7:43 PM CDT [facility] MCHC 32.6(L) 33.0 - 36.0 G/DL 07/01/2024 7:43 PM CDT [facility] RDW 13.5 11.5 - 14.5 % 07/01/2024 7:43 PM CDT [facility] PLT 367(H) 150 - 350 x10'3/uL 07/01/2024 7:43 PM CDT -[facility] MPV 9.3 7.4 - 10.4 FL 07/01/2024 7:43 PM CDT [facility] DIFFERENTIAL TYPE AUTOMATED DIFFERENTIAL 07/01/2024 7:43 PM CDT [facility] NEUTROPHILS % 58.3 % 07/01/2024 7:43 PM CDT [facility] LYMPHOCYTES % 27.9 % 07/01/2024 7:43 PM [facility] MON[facility] % 12.3 % 07/01/2024 7:43 PM CDT [facility] EOSINOPHILS % 1.0 % 07/01/2024 7:43 PM CDT [facility] BASOPHILS % 0.4 % 07/01/2024 7:43 PM CDT [facility] IMMATURE GRANS % 0.1 % 07/01/2024 7:43 PM CDT [facility] ABS. NEUTROPHILS 4.12 1.60 - 8.30 x10'3/uL 07/01/2024 7:43 PM CDT [facility] ABS. LYMPHOCYTES 1.97 0.80 - 4.70 x10'3/uL 07/01/2024 7:43 PM CDT [facility] ABS. MONOCYTES 0.87 0.00 - 1.50 x10'3/uL 07/01/2024 7:43 PM CDT [facility] ABS. EOSINOPHILS 0.07 0.00 - 0.40 x10'3/uL 07/01/2024 7:43 PM CDT [facility] ABS. BASOPHILS 0.03 0.00 - 0.20 x10'3/uL 07/01/2024 7:43 PM CDT [facility] ABS. IMMATURE GRANULOCYTES 0.01 0.00 - 0.03 x10'3/uL 07/01/2024 7:43 PM CDT [facility] 07/01/2024 3:45 PM CDT us Alexandria Larkin NP LABORATORY Final Resul t Performing Organization Address [facility]/ZIP Co de Phone Number [address] [address], [place] [phone] * MAGNESIUM (07/01/2024 3:45 PM CDT) MAGNESIUM 2.2 1.8 - 2.4 MG/DL 07/01/2024 8:00 PM CDT [facility] 07/01/2024 3:45 PM CDT us Alexandria Larkin NP LABORATORY Final Resul t Performing Organization Address [facility] Co de Phone Number [address] [address], [place] [phone] * VITAMIN D 25 OH (06/05/2024 2:14 PM CDT) Pathologist [facility] VITAMIN D 25 HYDROXY TOTAL S/P/B 37.5 30 - 100 NG/ML 06/06/2024 10:56 AM CDT [facility] Comment: DEFICIENT <20 INSUFFICIENT 20-30 SUFFICIENT 30-100 06/05/2024 2:14 PM CDT us Alexandria Larkin NP LABORATORY Final Resul t Performing Organization Address City/[facility]/ZIP Co de Phone Number [address] [address], [place] [phone] * LIPID PANEL (12/28/2023) CHOLESTEROL 212 HDL 78 TRIGLYCERIDES 78 LDL (CALCULATED) 120 12/28/2023 us Default History Genericprovider LABORATORY Final Result * HEPATITIS C ANTIBODY (10/16/2023 10:56 AM CDT) HEPATITIS C AB NON-REACTI VE NON-REACTI VE 10/16/2023 12:50 PM CDT [facility] 10/16/2023 10:5 6 AM CDT Alexandria Larkin PERMASTONE MECHANIC LABORATORY Final Resul t [facility] [address] [place] [address], [place] [phone] * MAMMOGRAM GENERIC (SCAN ORDER) (02/05/2023) Anatomical Region Laterality Modality Other 02/05/2023 [facility] Scanned SCANNING Final Resu lt * COLONOSCOPY GENERIC (SCAN ORDER) (08/25/2021) 08/25/2021 [facility] Scanned SCANNING Final Resu lt from Last 3 Months or Most Recently Relevant to Health Maintenance Insurance [employer] Care Teams Tailings Man Relationship Specialty Start Date End Date Alexandria Larkin, PERMASTONE MECHANIC [address] [facility] [address] [place] [address] PCP - General NURSE PRACTITIONER 10/16/23
--- OUTSIDE RECORDS SUMMARY | 2024-07-02 17:04 | XMS_ITS | Encounter Summary ---
Author Organization [facility] - [facility] Address [address] [place] [address] Care Team Providers Care Senior Water Resources Engineer Name Role Phone Alexandria Larkin GREASE MAKER Primary Care Provider [phone]- [phone] Encounter Details Date Type Department Care Team (Latest Contact Info) Description 07/01/2024 Results Follow-Up [facility] Mult[facility]pecialty Care - [place] [address] [place], [place] [id number] Alexandria Larkin, GREASE MAKER [address] [place], [place] [id number] EKG WELCHALLEN ACQUIRED, CBC W/DIFF AUTOMATED, COMPREHENSIVE METABOLIC PANEL, Additional followed-up results: 4 Social History Tobacco Use Types Packs/Day Years [...] Description 07/08/2024 2:00 PM CDT Office Visit [facility] Multispecialty Care - [place] [address] [facility] [address] [place] [address] Alexandria Larkin NP [address] [facility] [address] [place] [address] 07/13/2024 10:00 AM CDT Office Visit [facility] Multispecialty [facility] [address] [facility] [place] [phone] Henri Doherty PA-C 3 [facility] [address] [place] [address] 07/23/2024 8:30 AM CDT [facility] [place] [address] [facility] [address] [place] [address] Alexandria Larkin NP [address] [facility] [address] [place] [address] 09/24/2024 2:20 PM CDT Office Visit [facility] Mult[facility]pecialty [facility] 3 [facility], [address] [place] [phone] Alverto Frias MD 3 [facility], [address] [place] [address] 12/16/2024 8:00 AM CDT [facility] - [place] [address] [facility] [address] [place] [address] Alexandria Larkin, YOVANNY [address] [facility] [address] [place] [address] 12/16/2024 8:30 AM CDT Office Visit [facility] Medical [facility] Multispecialty Care - [place] [address] [place] [address] Alexandria Larkin, GREASE MAKER [address] [facility] [address] [place] [address] documented as of this encounter Visit Diagnoses Not on filedocumented in this encounter Additional Health Concerns Assessment Noted Time PHQ-9 Depression Total Score: 2 06/06/19 25 2:41 PM CDT documented as of this encounter Care Teams Senior Water Resources Engineer Relationship Specialty Start Date End Date Alexandria Larkin, GREASE MAKER [address] [place] [address] PCP - General NURSE PRACTITIONER 10/16/23 documented as of this encounter
--- NOTE | 2024-07-02 18:35 | ECG_ITS ---
Test Date: 2024-07-02 18:58:40 Measurements Intervals [place] Rate: 60 P: 83 NC: 144 QRS: 84 QRSD: 94 T: 64 QT: 391 QTc: 393 Interpretive Statements SINUS RHYTHM Compared to ECG 09/28/2023 16:13:05 NO SIGNIFICANT CHANGES Electronically Signed On 07-03-2024 12:08:10 CDT by Keila Fajardo M.D.
[2024-07-02 18:56] LABS: Basophils Absolute Auto 0.1 K/mm3 (0.0-0.1); Basophils Percent Auto 0.6 % (0.2-1.2); Eosinophils Absolute Auto 0.1 K/mm3 (0-0.3); Eosinophils Percent Auto 1.1 % (0-4.4); Hematocrit 42.9 % (37.0-47.0); Hemoglobin 13.9 g/dL (12.0-15.0); Immature Granulocyte Absolute 0.02 K/mm3 (0.00-0.031); Immature Granulocyte Percent A 0.2 % (0-0.5); Lymphocytes Absolute Auto 2.09 K/mm3 (0.9-3.2); Mean Corpuscular HGB Conc 32.4 g/dl (32-36); Mean Corpuscular Hemoglobin 30.5 pg (26-34); Mean Corpuscular Volume 94.1 fl (80-100); Mean Platelet Volume 8.7 fl (7.4-10.4); Monocytes Absolute Auto 1.1 K/mm3 (0.1-0.6); Monocytes Percent Auto 11.9 % (2.6-8.5); Neutrophils Absolute Auto 5.8 K/mm3 (1.3-6.7); Neutrophils Percent Auto 63.2 % (45.5-73.1); Platelet Count Result 318 k/mm3 (150-375); Red Blood Count 4.56 M/mm3 (4.2-5.4); Red Cell Distribution Width 13.2 % (11.5-14.5); White Blood Count 9.1 K/mm3 (4.5-10.0)
[2024-07-02 19:07] LABS: Alanine Aminotransferase 33 U/L (6-35); Albumin Level 4.3 g/dL (3.5-5.1); Alkaline Phosphatase 86 U/L (38-126); Anion Gap 7 mmol/L (4-12); Aspartate Amino Transferase 40 U/L (14-36); Bilirubin,Total 0.5 mg/dL (0.2-1.3); Blood Urea Nitrogen 27 mg/dL (7-17); Calcium 9.4 mg/dL (8.4-10.2); Carbon Dioxide 26 mmol/L (22-30); Chloride 100 mmol/L (98-107); Estimated CRCL calculation 40 ml/min; Estimated Glomerular Filt Rate > 60; Glucose 101 mg/dL (65-110); Potassium 4.1 mmol/L (3.4-5.0); Sodium 133 mmol/L (137-145)
[2024-07-02 19:18] LABS: Creatine Kinase 67 U/L (30-135)
--- OUTSIDE RECORDS SUMMARY | 2024-07-02 19:22 | XMS_ITS | Encounter Summary ---
Author Organization [facility] Address [address] [place] [address] Care Team Providers Care Pump Erector Name Role Phone Ari Larkin EMAIL MARKETING COORDINATOR Primary Care Provider +1- [phone] Reason for Referral * Imaging (Urgent) - New Request Specialty Diagnoses / Procedures Referred By Evans penny Referred To Contact RADIOLOGY Diagnoses Injury of head, initial encounter Syncope, unspecified syncope type Procedures CT HEAD WO CON Ari Larkin, EMAIL MARKETING COORDINATOR [address] [place] [address] Phone: tel: fax: Referral ID Status Reason Start Date Expiration Date V isits Requested Visits Authorized [id number] New Request 07/02/2024 07/03/2025 1 1 Reason for Visit * Reason Onset Date Comments Information 07/02/2024 Encounter Details Date Type Department Care Team (Late st Contact Info) Description 07/02/2024 Telephone [facility] Medical Group Multispecialty Care - [place] [address] [place] [address] Ari Larkin, YOVANNY [address] [place] [address] Information Social History Tobacco Use Types Packs/Day [...] as of this encounter Progress Notes * Ari Larkin NP - 07/02/2024 5:36 PM CDTAddended by: ARI LARKIN on: 07/02/2024 05:36 PM Modules accepted: Orders * Carmencita Gregory - 07/02/2024 1:58 PM CDT Pt is still not feeling very well and said that Ari had offered a head scan if she was still not doing good since she hit her head when she fell. She is interested in this and wants to know if there is anyway to get it done at [place] so she can avoid the long drive. Please advise. documented in this encounter Plan of Treatment Upcoming Encounters Date Type Department Care Team (Late st Contact Info) Description 07/08/2024 2:00 PM CDT Office Visit [facility] Medical [facility] Multispecialty Care - [place] [address] [place] [address] Ari Larkin NP [address] [place] [address] 07/13/2024 10:00 AM CDT Office Visit [facility] Multispecialty Care - [facility] [address] [facility] [place] [phone] Henri Doherty PA-C [address] [facility] [address] [place] [address] 07/23/2024 8:30 AM CDT [facility] [place] [address] [address] [facility] [address] [place] [address] Ari Larkin NP [address] [facility] [address] [place] [address] 09/24/2024 2:20 PM CDT [facility] 3 [facility], [address] [place] [phone] Alverto Frias MD 3 [facility], [address] [place] [address] 12/16/2024 8:00 AM CDT [facility] [place] [address] [facility] [address] [place] [address] Ari Larkin NP [address] [facility] [address] [place] [address] 12/16/2024 8:30 AM CDT [facility] - [place] [address] [facility] [address] [place] [address] Ari Larkin NP [address] [facility] [address] [place] [address] Scheduled Orders Name Type Priority Associated Diagnoses Orde r Schedule CT HEAD WO CON CT KB Injury of head, initial encounter Syncope, unspecified syncope type Expected: 07/02/2024, Expires: 07/02/2025 documented as of this encounter Visit Diagnoses Diagnosis Injury of head, initial encounter- Primary Syncope, unspecified syncope type documented in this encounter Additional Health Concerns Assessment Noted Time PHQ-9 Depression Total Score: 2 06/06/19 25 2:41 PM CDT documented as of this encounter Care Teams Pump Erector Relationship Specialty Start Date End Date Ari Larkin, EMAIL MARKETING COORDINATOR [address] [place] [address] PCP - General NURSE PRACTITIONER 10/16/23 documented as of this encounter
--- OUTSIDE RECORDS SUMMARY | 2024-07-02 19:22 | XMS_ITS | Encounter Summary ---
Author Organization [facility] - [facility] Address [address] [place] [address] Care Team Providers Care Shoveler Name Role Phone Alexandria Larkin LITHOSTRIPPER Primary Care Provider [phone]- [phone] Encounter Details Date Type Department Care Team (Latest Contact Info) Description 06/07/2024 Results Follow-Up [facility] Medical Group Multispecialty Care - [place] [address] [place], [place] [id number] Alexandria Larkin, LITHOSTRIPPER [address] [place], [place] [address] VITAMIN D 25 [place], COMPREHENSIVE METABOLIC PANEL [...] Description 07/08/2024 2:00 PM CDT [facility] - [place] [address] [place] [address] Alexandria Larkin NP [address] [facility] [address] [place] [address] 07/13/2024 10:00 AM CDT [facility] 3 [facility] [address] [place] [phone] Henri Doherty PA-C 3 [facility] [address] [place] [address] 07/23/2024 8:30 AM CDT [facility] - [place] [address] [address] [facility] [address] [place] [address] Alexandria Larkin NP [address] [facility] [address] [place] [address] 09/24/2024 2:20 PM CDT [facility] 3 [facility], [address] [place] [phone] Alverto Frias MD 3 [facility], [address] [place] [address] 12/16/2024 8:00 AM CDT [facility] - [place] [address] [place] [address] Alexandria Larkin NP [address] [facility] [address] [place] [address] 12/16/2024 8:30 AM CDT Office Visit [facility] Medical Group Multispecialty Care - [place] [address] [place] [address] Alexandria Larkin NP [address] [place] [address] documented as of this encounter Visit Diagnoses Diagnosis Stage 3a chronic kidney disease (CMS/HCC)- Primary documented in this encounter Additional Health Concerns Assessment Noted Time PHQ-9 Depression Total Score: 2 06/06/19 25 2:41 PM CDT documented as of this encounter Care Teams Shoveler Relationship Specialty Start Date End Date Alexandria Larkin NP [address] [place] [address] PCP - General NURSE PRACTITIONER 10/16/23 documented as of this encounter
--- OUTSIDE RECORDS SUMMARY | 2024-07-02 19:22 | XMS_ITS | Encounter Summary ---
Author Organization [facility] Address [address] [place] [address] Care Team Providers Care Pattern Chain Maker Supervisor Name Role Phone Alexandria Larkin SERVICE COUNSELOR Primary Care Provider [phone]- [phone] Encounter Details Date Type Department Care Team (Late Contact Info) Description 07/01/2024 Orders Only [facility] Multispecialty Care - [place] [address] [facility] [address] [place] [address] Alexandria Larkin, SERVICE COUNSELOR [address] [facility] [address] [place], [place] [phone] Social History Tobacco Use Types Packs/Day Years [...] Description 07/08/2024 2:00 PM CDT [facility] - [place] [address] [place] [address] Alexandria Larkin NP [address] [facility] [address] [place] [address] 07/13/2024 10:00 AM CDT [facility] [address] [facility] [place] [phone] Henri Doherty PA-C [address] [facility] [address] [place] [address] 07/23/2024 8:30 AM CDT [facility] - [place] [address] [address] [facility] [address] [place] [address] Alexandria Larkin, SERVICE COUNSELOR [address] [facility] [address] [place] [address] 09/24/2024 2:20 PM CDT [facility] - [facility] 3 [facility], [address] [place] [phone] Alverto Frias MD [address] [facility], [address] [place] [address] 12/16/2024 8:00 AM CDT [facility] - [place] [address] [facility] [address] [place] [address] Alexandria Larkin SERVICE COUNSELOR [address] [facility] [address] [place] [address] 12/16/2024 8:30 AM CDT Office Visit [facility] Medical Group Multispecialty Care - [place] [address] [place] [address] Alexandria Larkin Tamara, SERVICE COUNSELOR [address] [place] [address] documented as of this encounter Procedures Procedure Name Priority Date/Time Associated Diagnosis Comments URINALYSIS, AUTO, COMPLETE Routine 07/01/2024 7:07 PM CDT Abnormal kidney function ALBUMIN URINE RANDOM W/CREATININE Routine 07/01/2024 7:06 PM CDT Type 2 diabetes mellitus without complication, without long-term current use of insulin ([facility]) documented in this encounter Results * (ABNORMAL) URINALYSIS (07/01/2024 7:07 PM CDT) COLOR (U) YELLOW 07/01/2024 8:23 PM CDT [facility] TRANSPARENCY CLEAR CLEAR 07/01/2024 8:23 PM CDT [facility] SPECIFIC GRAVITY (U) 1.010 1.003 - 1.040 07/01/2024 8:23 PM CDT [facility] U PH 5.5 5.0 - 9.0 07/01/2024 8:23 PM CDT [facility] PROTEIN RANDOM (U) NEGATIVE NEGATIVE 07/01/2024 8:23 PM CDT [facility] GLUCOSE (U) NEGATIVE NEGATIVE 07/01/2024 8:23 PM CDT [facility] KETONES MG/DL (U) NEGATIVE NEGATIVE 07/01/2024 8:23 PM CDT [facility] BILIRUBIN (U) NEGATIVE NEGATIVE 07/01/2024 8:23 PM CDT [facility] BLOOD (U) TRACE(A) NEGATIVE 07/01/2024 8:23 PM CDT [facility] UROBILINOGEN 0.2 0.0 - 2.0 EU/DL 07/01/2024 8:23 PM CDT [facility] NITRITES NEGATIVE NEGATIVE 07/01/2024 8:23 PM CDT [facility] LEUKOCYTES (U) NEGATIVE NEGATIVE 07/01/2024 8:23 PM CDT [facility] RBC/HPF 0-3 0 - 3 /HPF 07/01/2024 8:23 PM CDT [facility] WBC/HPF 0-3 0 - 3 /HPF 07/01/2024 8:23 PM CDT [facility] EPI/HPF 0-3 /HPF 07/01/2024 8:23 PM CDT [facility] BACTERIA (U) TRACE(A) NONE SEEN 07/01/2024 8:23 PM CDT [facility] URINE SPECIMEN OBTAINED BY CLEAN CATCH PROCEDURE / Unknown 07/01/2024 7:07 PM CDT us Alexandria Larkin NP URINE ORDERABLES Final Resu lt [facility] [address] [place] [address], * ALBUMIN URINE RANDOM W/CREATININE (07/01/2024 7:06 PM CDT) MICROALBUMIN (U) 3.0 <20 MG/L 07/03/19 10:45 AM CDT [facility] CREATININE RANDOM (U) 46.7 MG/DL 07/02/2024 10:27 AM CDT [facility] ALBUMIN/CREAT RATIO 6.4 <30 MG/G 07/02/2024 10:45 AM CDT [facility] URINE SPECIMEN / Unknown 07/01/2024 7:06 PM CDT us Alexandria Larkin NP URINE ORDERABLES Final Resu lt [facility] [place] [address] [facility] [place] [address], documented in this encounter Visit Diagnoses Diagnosis Type 2 diabetes mellitus without complication, without long-term current use of insulin ([facility]) Abnormal kidney function Unspecified disorder of kidney and ureter documented in this encounter Additional Health Concerns Assessment Noted Time PHQ-9 Depression Total Score: 2 06/06/19 25 2:41 PM CDT documented as of this encounter Care Teams Pattern Chain Maker Supervisor Relationship Specialty Start Date End Date Alexandria Larkin, SERVICE COUNSELOR [address] [place] [address] PCP - General NURSE PRACTITIONER 10/16/23 documented as of this encounter
--- OUTSIDE RECORDS SUMMARY | 2024-07-02 19:22 | XMS_ITS | Clinical Summary ---
Author Organization [facility] Address [address] [place] [address] Care Team Providers Care Cattle Trader Name Role Phone Chaya Alexandria Mcdonald CONCRETE PLANT LABORER Primary Care Provider Allergies Active Allergy Reactions [...] 11/15/2023 Jejunitis 10/25/2023 Adenocarcinoma of sigmoid colon ([facility] ) 10/25/2023 Mixed hyperlipidemia 10/16/2023 Gastroesophageal reflux disease without esophagi tis 10/16/2023 Chronic bronchitis, unspecif ied chronic bronchitis type ([facility]) 10/16/2023 Epigastric pain 10/16/2023 History of colon cancer 10/16/2023 History of colectomy 10/16/2023 Resolved Problems Problem Noted Date Diagnosed Date Resolved Date Anxiety 01/03/2024 06/07/2024 Chest pain, unspecified type 11/27/2023 11/27/2023 Encounters Date Type Department Care Team Description 07/02/2024 MyChart Message Enc [place] [address] [place] [address] Alexandria Larkin NP Head CT 07/02/2024 Telephone [place] [address] [facility] [address] [place] [address] Alexandria Larkin NP Information 07/01/2024 2:20 PM CDT Office Visit [place] [address] [place] [address] Alexandria Larkin, YOVANNY Leg Pain; Head Injury; Shoulder Pain; Syncope 07/01/2024 Orders Only [place] [address] [place] [address] Alexandria Larkin, CONCRETE PLANT LABORER 07/01/2024 [facility] - [place] [address] [facility] [address] [place] [address] Alexandria Larkin, CONCRETE PLANT LABORER EKG WELCHALLEN ACQUIRED, CBC W/DIFF AUTOMATED, COMPREHENSIVE METABOLIC PANEL, Additional followed-up results: 4 07/01/2024 Travel 06/30/2024 [facility]phone [facility] - [place] [address] [facility] [address] [place] [address] Alexandria Larkin, CONCRETE PLANT LABORER Question 06/26/2024 2:39 PM CDT - 06/26/2024 11:59 PM CDT Hospital Encounter [facility] Ultrasound [address] [address] Alexandria Larkin, CONCRETE PLANT LABORER Discharge Disposition: Home or Self Care (Routine Discharge) 06/26/2024 Travel 06/11/2024 Orders [facility] - [place] [address] [facility] [address] [place] [address] Alexandria Larkin, CONCRETE PLANT LABORER 06/10/2024 [facility]phone [facility] - [place] [address] [address] [facility] [address] [place] [address] Alexandria Larkin, CONCRETE PLANT LABORER Results 06/08/2024 Orders Only [facility] Multispecialty [facility] - [place] [address] [address] [facility] [address] [place] [address] Alexandria Larkin, CONCRETE PLANT LABORER 06/07/2024 Results [facility] - [place] [address] [address] [facility] [address] [place] [address] Alexandria Larkin, CONCRETE PLANT LABORER VITAMIN D 25 OH, COMPREHENSIVE METABOLIC PANEL 06/05/2024 1:20 PM CDT Office Visit [facility] Multispecialty [place] [address] [place] [address] Alexandria Larkin, YOVANNY Medication Check 06/05/2024 Travel from Last 3 Months Immunizations Immunization Administration Dates Next Due Influenza Adult (Generic) 12/16/2021,,11/08/2019,2018,12/01/2015,12/20/2014,11/15/2013,1 ,03/09/2012,12/22/2010 MODERNA COVID-19 BIVALENT (1 2+), MRNA, LNP-S, PF 02/15/2022 MODERNA COVID-19 (12+) MRNA, LNP-S, PF, 100 MCG/ 0.5 ML DOSE 07/19/2021,12/14/2020 Pneumococcal (Pneumovax 23) 12/22/2010 Pneumococcal (Prevnar 13) 12/21/2015 Pneumococcal (Prevnar 20) 06/23/2022 Shingrix 12/14/2020,11/08/2019 Tdap (Generic) 07/15/2016 Zoster (Zostavax) 42409 Unt/0.65Ml 12/01/2015 Family History Medical History Relation [...] Description 07/08/2024 2:00 PM CDT [facility] - [place] [address] [place] [address] Alexandria Larkin NP [address] [facility] [address] [place] [address] 07/13/2024 10:00 AM CDT Office Visit [facility] - [address] [place] [phone] Henri Doherty PA-C 3 [facility] [address] [place] [address] 07/23/2024 8:30 AM CDT Laboratory Only [facility] - [place] [address] [facility] [address] [place] [address] Alexandria Larkin NP [address] [facility] [address] [place] [address] 09/24/2024 2:20 PM CDT [facility] 3 [facility], [address] [place] [phone] Alverto Frias MD 3 [facility], [address] [address] 12/16/2024 8:00 AM CDT Office Visit [facility] Multispecialty Care - [place] [address] [place] [address] Alexadnria Larkin, CONCRETE PLANT LABORER [address] [place] [address] 12/16/2024 8:30 AM CDT Office Visit [facility] Multispecialty Care - [place] [address] [place] [address] Alexandria Larkin, CONCRETE PLANT LABORER [address] [facility] [address] [place] [address] Health Maintenance Due Date Last Done Comments Hemoglobin A1C 1955 Diabetes: Retinopathy Eye Exam 05/13/1973 Annual Medicare Wellness Visit 05/13/2020 Dexa Scan (General) 05/13/2020 COVID-19 Vaccine ( - 2023-2 5 season) 2023 02/15/2022, 07/19/2021, 12/14/2020 RSV Immunization or 60+ Years (1 - Risk 60-74 years 1-dose series) 10/24/2024 Postponed from 2015 (Going to Outside Clinic) Lipid Panel 12/27/2024 12/28/2023 Mammogram Screening 02/05/2025 02/05/2023 Kidney Health Evaluation 07/01/2025 07/01/2024 DTaP, Tdap and Td Vaccines ( 2 - Td or Tdap) 07/15/2026 07/15/2016 Zoster Vaccines Completed 12/14/2020, 11/08/2019, 12/01/2015 Colorectal Cancer Screening Colonoscopy (10 Years) Discontinued 08/25/2021, 08/25/2021 Pneumococcal Vaccine: 50+ Years Completed 06/23/2022, 12/21/2015, 12/22/2010 Hepatitis C Completed 10/16/2023 PHQ-2 (Physician [place]) Completed 06/05/2024 Meningococcal B Vaccine Aged Out [...] complication, without long-term current use of insulin ([facility]) TSH W/REFLEX Routine 07/01/2024 3:45 PM CDT [...] 3:42 PM CDTThis note is in progress. [facility] [address] [place] [address] Test Date: 2024-07-01 Pat Name: SHEYLA PACE Department: 171 Room: Gender: Female Supervisor Lime: : 1955 Requested By: DEREJE BARBA Order Number: [id number] [place] MD: DEREJE BARBA Measurements Intervals [place] Rate: 73 P: 86 MA: 135 QRS: 84 QRSD: 92 T: 63 [...] COLOR (U) YELLOW 07/01/2024 8:23 PM CDT [facility] TRANSPARENCY CLEAR CLEAR 07/01/2024 8:23 PM CDT [facility] SPECIFIC GRAVITY (U) 1.010 1.003 - 1.040 07/01/2024 8:23 PM CDT [facility] U PH 5.5 5.0 - 9.0 07/01/2024 8:23 PM CDT [facility] PROTEIN RANDOM (U) NEGATIVE NEGATIVE 07/01/2024 8:23 PM CDT [facility] GLUCOSE (U) NEGATIVE NEGATIVE 07/01/2024 8:23 PM CDT [facility] KETONES MG/DL (U) NEGATIVE NEGATIVE 07/01/2024 8:23 PM CDT [facility] BILIRUBIN (U) NEGATIVE NEGATIVE 07/01/2024 8:23 PM CDT [facility] BLOOD (U) TRACE(A) NEGATIVE 07/01/2024 8:23 PM CDT [facility] UROBILINOGEN 0.2 0.0 - 2.0 EU/DL 07/01/2024 8:23 PM CDT [facility] NITRITES NEGATIVE NEGATIVE 07/01/2024 8:23 PM CDT [facility] LEUKOCYTES (U) NEGATIVE NEGATIVE 07/01/2024 8:23 PM CDT [facility] RBC/HPF 0-3 0 - 3 /HPF 07/01/2024 8:23 PM CDT [facility] WBC/HPF 0-3 0 - 3 /HPF 07/01/2024 8:23 PM CDT [facility] EPI/HPF 0-3 /HPF 07/01/2024 8:23 PM CDT [facility] BACTERIA (U) TRACE(A) NONE SEEN 07/01/2024 8:23 PM CDT [facility] URINE SPECIMEN OBTAINED BY CLEAN CATCH PROCEDURE / Unknown 07/01/2024 7:07 PM CDT Alexandria Larkin NP URINE ORDERABLES Final Resu lt [facility] [address] [place] [address], * ALBUMIN URINE RANDOM W/CREATININE (07/01/2024 7:06 PM CDT) MICROALBUMIN (U) 3.0 <20 MG/L 07/03/19 25 10:45 AM CDT [facility] CREATININE RANDOM (U) 46.7 MG/DL 07/02/2024 10:27 AM CDT [facility] ALBUMIN/CREAT RATIO 6.4 <30 MG/G 07/02/2024 10:45 AM CDT [facility] URINE SPECIMEN / Unknown 07/01/2024 7:06 PM CDT us Alexandria Larkin NP URINE ORDERABLES Final Resu lt Performing Organization Address [facility]/ZIP Co de Phone Number [facility] [address] [place] [address], [place] [phone] * TSH W/REFLEX (07/01/2024 3:45 PM CDT) TSH 1.962 0.358 - 3.740 uIU/ML 07/01/2024 8:00 PM CDT [facility] 07/01/2024 3:45 PM CDT us Alexandria Larkin NP LABORATORY Final Resul t Performing Organization Address [facility] Co de Phone Number [address] [address] [place] [address], [place] [phone] * (ABNORMAL) COMPREHENSIVE METABOLIC PANEL (07/01/2024 3:45 PM CDT) Only the most recent of2 resultswithin the time period is included. SODIUM S/P/B 136 136 - 145 MMOL/L 07/01/2024 8:00 PM CDT [facility] POTASSIUM S/P/B 4.9 3.5 - 5.1 MMOL/L 07/01/2024 8:00 PM CDT [facility] CHLORIDE S/P/B 100 98 - 107 MMOL/L 07/01/2024 8:00 PM CDT [facility] CO2 31.4 21 - 32 MMOL/L 07/01/2024 8:00 PM CDT [facility] GLUCOSE 90 70 - 99 MG/DL 07/01/2024 8:00 PM CDT [facility] BUN 31(H) 7 - 18 MG/DL 07/01/2024 8:00 PM CDT [facility] CREATININE S/P/B 0.99 0.55 - 1.02 MG/DL 07/01/2024 8:00 [facility] CALCIUM S/P/B 9.9 8.4 - 10.5 MG/DL 07/01/2024 8:00 [facility] BILIRUBIN TOTAL S/P/B 0.4 0.2 - 1.0 MG/DL 07/01/2024 8:00 [facility] ALKALINE PHOSPHATASE S/P/B 87 55 - 142 U/L 07/01/2024 8:00 PM [facility] AST 29 15 - 37 U/L 07/01/2024 8:00 PM [facility] ALT 37 14 - 59 U/L 07/01/2024 8:00 [facility] TOTAL PROTEIN S/P/B 7.3 6.4 - 8.2 G/DL 07/01/2024 8:00 [facility] ALBUMIN S/P/B 3.8 3.4 - 5.0 G/DL 07/01/2024 8:00 [facility] ANION GAP 4.6(L) 5 - 15 MMOL/L 07/01/2024 8:00 [facility] Comment:REFERENCE RANGE NOT ESTABLISHED OSMOLALITY (CALC) 288 MOSM/KG 025 8:00 [facility] Comment:REFERENCE RANGE NOT ESTABLISHED GFR ESTIMATE 62(L) >90 ML/MIN/1. 73 M2 07/01/2024 8:00 [facility] GFR NOTES GFR REFERENCE S: 07/01/2024 8:00 [facility] Comment: THE ESTIMATED GFR IS CALCULATED USING [...] ml/min/1.73 m2 07/01/2024 3:45 PM CDT us Alexandria Larkin NP LABORATORY Final Resul t [facility] [address] [place] [address], * (ABNORMAL) CBC W/DIFF AUTOMATED (07/01/2024 3:45 PM CDT) WBC 7.07 4.00 - 10.80 x10'3/uL 07/01/2024 7:43 PM CDT [facility] RBC 4.59 4.10 - 5.40 x10'6/uL 07/01/2024 7:43 PM CDT [facility] HGB 14.1 12.0 - 16.0 G/DL 07/01/2024 7:43 PM CDT [facility] HCT 43.3 36.0 - 47.0 % 07/01/2024 7:43 PM CDT [facility] MCV 94.3 78.0 - 100.0 FL 07/01/2024 7:43 PM CDT [facility] MCH 30.7 27.0 - 31.0 PG 07/01/2024 7:43 PM CDT [facility] MCHC 32.6(L) 33.0 - 36.0 G/DL 07/01/2024 7:43 PM CDT [facility] RDW 13.5 11.5 - 14.5 % 07/01/2024 7:43 PM CDT [facility] PLT 367(H) 150 - 350 x10'3/uL 07/01/2024 7:43 PM CDT [facility] MPV 9.3 7.4 - 10.4 FL 07/01/2024 7:43 PM CDT [facility] DIFFERENTIAL TYPE AUTOMATED DIFFERENTIAL 07/01/2024 7:43 PM CDT [facility] NEUTROPHILS % 58.3 % 07/01/2024 7:43 PM CDT [facility] LYMPHOCYTES % 27.9 % 07/01/2024 7:43 PM CDT [facility] MONOCYTES % 12.3 % 07/01/2024 7:43 PM CDT [facility] EOSINOPHILS % 1.0 % 07/01/2024 7:43 PM CDT [facility] BASOPHILS % 0.4 % 07/01/2024 7:43 PM CDT [facility] IMMATURE GRANS % 0.1 % 07/01/2024 7:43 PM CDT [facility] ABS. NEUTROPHILS 4.12 1.60 - 8.30 x10'3/uL 07/01/2024 7:43 PM CDT [facility] ABS. LYMPHOCYTES 1.97 0.80 - 4.70 x10'3/uL 07/01/2024 7:43 PM CDT [facility] ABS. MONOCYTES 0.87 0.00 - 1.50 x10'3/uL 07/01/2024 7:43 PM CDT [facility] ABS. EOSINOPHILS 0.07 0.00 - 0.40 x10'3/uL 07/01/2024 7:43 PM CDT [facility] ABS. BASOPHILS 0.03 0.00 - 0.20 x10'3/uL 07/01/2024 7:43 PM CDT [facility] ABS. IMMATURE GRANULOCYTES 0.01 0.00 - 0.03 x10'3/uL 07/01/2024 7:43 PM CDT [facility] 07/01/2024 3:45 PM CDT Alexandria Larkin NP LABORATORY Final Resul t Performing Organization Address City/[facility]/ZIP Co de Phone Number [facility] [address] [place] [address], [place] [phone] * MAGNESIUM (07/01/2024 3:45 PM CDT) MAGNESIUM 2.2 1.8 - 2.4 MG/DL 07/01/2024 8:00 PM CDT [facility] 07/01/2024 3:45 PM CDT us Alexandria Larkin NP LABORATORY Final Resul t Performing Organization Address [facility] Co de Phone Number [address] [address], [place] [phone] * VITAMIN D 25 OH (06/05/2024 2:14 PM CDT) [facility] VITAMIN D 25 HYDROXY TOTAL S/P/B 37.5 30 - 100 NG/ML 06/06/2024 10:56 AM CDT [facility] Comment: DEFICIENT <20 INSUFFICIENT 20-30 SUFFICIENT 30-100 06/05/2024 2:14 PM CDT us Alexandria Larkin NP LABORATORY Final Resul t Performing Organization Address City/[facility]/ZIP Co de Phone Number [address] [address], [place] [phone] * LIPID PANEL (12/28/2023) Pathologist [facility] CHOLESTEROL 212 HDL 78 TRIGLYCERIDES 78 LDL (CALCULATED) 120 12/28/2023 us Default History Genericprovider LABORATORY Final Result * HEPATITIS C ANTIBODY (10/16/2023 10:56 AM CDT) HEPATITIS C AB NON-REACTI VE NON-REACTI VE 10/16/2023 12:50 PM CDT [facility] 10/16/2023 10:5 6 AM CDT us Alexandria Larkin CONCRETE PLANT LABORER LABORATORY Final Resul t [facility] [address] [place] [address], [place] [phone] * MAMMOGRAM GENERIC (SCAN ORDER) (02/05/2023) Anatomical Region Laterality Modality Other 02/05/2023 [facility] Scanned SCANNING Final Resu lt * COLONOSCOPY GENERIC (SCAN ORDER) (08/25/2021) 08/25/2021 [facility] Scanned SCANNING Final Resu lt from Last 3 Months or Most Recently Relevant to Health Maintenance Insurance [employer] Care Teams Cattle Trader Relationship Specialty Start Date End Date Alexandria Larkin, CONCRETE PLANT LABORER [address] [facility] [address] [place] [address] PCP - General NURSE PRACTITIONER 10/16/23
--- OUTSIDE RECORDS SUMMARY | 2024-07-02 19:22 | XMS_ITS | Encounter Summary ---
Author Organization [facility] Address [address] [place] [address] Care Team Providers Care Youth Development Professional Name Role Phone Alexandria Larkin OCCUPATIONAL HEALTH SPECIALIST Primary Care Provider [phone] Encounter Details Date Type Department Care Team (Latest Contact Info) Description 07/01/2024 Results Follow-Up [facility] Multispecialty Care - [place] [address] [place], [place] [address] Alexandria Larkin, OCCUPATIONAL HEALTH SPECIALIST [address] [place], [place] [phone] EKG WELCHALLEN ACQUIRED, CBC W/DIFF AUTOMATED, COMPREHENSIVE [...] Description 07/08/2024 2:00 PM CDT Office Visit [facility] Multispecialty Care - [place] [address] [facility] [address] [place] [address] Alexandria Larkin NP [address] [facility] [address] [place] [address] 07/13/2024 10:00 AM CDT Office Visit [facility] Mult[facility]pecialty [facility] [address] [facility] [place] [phone] Henri Doherty PA-C 3 [facility] [address] [place] [address] 07/23/2024 8:30 AM CDT [facility] - [place] [address] [facility] [address] [place] [address] Alexandria Larkin NP [address] [facility] [address] [place] [address] 09/24/2024 2:20 PM CDT Office Visit [facility] Multispecialty [facility] 3 [facility], [address] [place] [phone] Alverto Frias MD 3 [facility], [address] [place] [address] 12/16/2024 8:00 AM CDT [facility] - [place] [address] [facility] [address] [place] [address] Alexandria Larkin, YOVANNY [address] [facility] [address] [place] [address] 12/16/2024 8:30 AM CDT Office Visit [facility] Multispecialty Care - [place] [address] [place] [address] Alexandria Larkin, OCCUPATIONAL HEALTH SPECIALIST [address] [facility] [address] [place] [address] documented as of this encounter Visit Diagnoses Not on filedocumented in this encounter Additional Health Concerns Assessment Noted Time PHQ-9 Depression Total Score: 2 06/06/19 25 2:41 PM CDT documented as of this encounter Care Teams Youth Development Professional Relationship Specialty Start Date End Date Alexandria Larkin, OCCUPATIONAL HEALTH SPECIALIST [address] [place] [address] PCP - General NURSE PRACTITIONER 10/16/23 documented as of this encounter
--- OUTSIDE RECORDS SUMMARY | 2024-07-02 19:22 | XMS_ITS | Encounter Summary ---
Author Organization [facility] Address [address] [place] [address] Care Team Providers Care Grain Shipper Name Role Phone Alexandria Larkin INSET CUTTER Primary Care Provider Encounter Details Date Type Department Care Team (Late Contact Info) Description 07/02/2024 MyChart Message Enc [facility] Medical [facility] Care - [place] [address] [facility] [address] [place], [place] [address] Alexandria Larkin, INSET CUTTER [address] [place], [place] [id number] Head [address] Social History Tobacco Use Types [...] Description 07/08/2024 2:00 PM CDT [facility] - [place] [address] [place] [address] Alexandria Larkin NP [address] [facility] [address] [place] [address] 07/13/2024 10:00 AM CDT [facility] [address] [facility] [address] [place] [address] Henri Doherty PA-C 3 [facility] [address] [place] [address] 07/23/2024 8:30 AM CDT [facility] [place] [address] [facility] [address] [place] [address] Alexandria Larkin NP [address] [facility] [address] [place] [address] 09/24/2024 2:20 PM CDT [facility] 3 [facility], [address] [place] [phone] Alverto Frias MD [address] [facility], [address] [place] [address] 12/16/2024 8:00 AM CDT [facility] - [place] [address] [facility] [address] [place] [address] Alexandria Larkin INSET CUTTER [address] [facility] [address] [place] [address] 12/16/2024 8:30 AM CDT Office Visit [facility] Multispecialty Care - [place] [address] [place] [address] Alexandria Larkin NP [address] [facility] [address] [place] [address] documented as of this encounter Visit Diagnoses Not on filedocumented in this encounter Additional Health Concerns Assessment Noted Time PHQ-9 Depression Total Score: 2 06/06/19 25 2:41 PM CDT documented as of this encounter Care Teams Grain Shipper Relationship Specialty Start Date End Date Alexandria Larkin NP [address] [facility] [address] [place] [address] PCP - General NURSE PRACTITIONER 10/16/23 documented as of this encounter
--- OUTSIDE RECORDS SUMMARY | 2024-07-02 19:23 | XMS_ITS | Encounter Summary ---
Author Organization [facility] Address [address] [place] [address] Care Team Providers Care Pencil Sorter Name Role Phone Alexandria Larkin FILM SOUND COORDINATOR Primary Care Provider Encounter Details Date Type Department Care Team (Late Contact Info) Description 11/15/2023 MyChart Message [facility] [address] [place], [place] [address] Alexandria Larkin, FILM SOUND COORDINATOR [address] [facility] [address] [place], [place] [address] F/u question Social History Tobacco Use Types [...] Description 07/08/2024 2:00 PM CDT Office Visit [facility] Multispecialty [place] [address] [address] [facility] [address] [place] [address] Alexandria Larkin NP [address] [facility] [address] [place] [address] 07/13/2024 10:00 AM CDT [facility] 3 [facility] [place] [phone] Henri Doherty PA-C 3 [facility] [address] [place] [address] 07/23/2024 8:30 AM CDT [facility] - [place] [address] [place] [address] [address] [place] [address] Alexandria Larkin NP [address] [facility] [address] [place] [address] 09/24/2024 2:20 PM CDT [facility] 3 [facility], [address] [place] [phone] Alverto Frias MD 3 [facility], [address] [place] [address] 12/16/2024 8:00 AM CDT [facility] [place] [address] [facility] [address] [place] [address] Alexandria Larkin, YOVANNY [address] [facility] [address] [place] [address] 12/16/2024 8:30 AM CDT Office Visit [facility] Medical Group Multispecialty Care - [place] [address] [place] [address] Alexandria Larkin NP [address] [place] [address] documented as of this encounter Visit Diagnoses Not on filedocumented in this encounter Additional Health Concerns Infection Onset Date Last Indicated Resolved Time COVID-19 Rule Out 01/02/2024 01/02/2024 01/02/2024 5:02 PM NUCLEAR MEDICINE SPECIALIST documented as of this encounter Care Teams Pencil Sorter Relationship Specialty Start Date End Date Alexandria Larkin NP [address] [place] [address] PCP - General NURSE PRACTITIONER 10/16/23 documented as of this encounter
--- OUTSIDE RECORDS SUMMARY | 2024-07-02 19:23 | XMS_ITS | Encounter Summary ---
Author Organization [facility] Address [address] [place] [address] Care Team Providers Care Counterintelligence Agent Name Role Phone ChayaAlexandria gonsalez Tamara GRAIN CLEANER AND TRANSFER OPERATOR Primary Care Provider [phone] Encounter Details Date Type Department Care Team (Late Contact Info) Description 11/18/2023 [employer] Advertisingt Message Enc [facility] THREE [facility], [address] [id number] Naveen Vargas MD [facility] [address] [phone] Appointment change Social History Tobacco Use Types [...] Description 07/08/2024 2:00 PM CDT Office Visit [facility] [place] [address] [place] [address] Alexandria Larkin, GRAIN CLEANER AND TRANSFER OPERATOR [address] [place] [address] 07/13/2024 10:00 AM CDT [facility] [address] [facility] [place] [phone] Henri Doherty PA-C [address] [facility] [address] [place] [address] 07/23/2024 8:30 AM CDT [facility] [place] [address] [address] [address] [place] [address] Alexandria Larkin, YOVANNY [address] [place] [address] 09/24/2024 2:20 PM CDT [facility] [address] [facility], [address] [place] [phone] Alverto Frias MD 3 [facility] [place] [address] 12/16/2024 8:00 AM CDT [facility] [place] [address] [address] [place] [address] Alexandria Larkin, GRAIN CLEANER AND TRANSFER OPERATOR [address] [place] [address] 12/16/2024 8:30 AM CDT Office Visit [facility] - [place] [address] [place] [address] Alexandria Larkin NP [address] [place] [address] documented as of this encounter Visit Diagnoses Not on filedocumented in this encounter Additional Health Concerns Infection Onset Date Last Indicated Resolved Time COVID-19 Rule Out 01/02/2024 01/02/2024 01/02/2024 5:02 PM ADOPTION SPECIALIST documented as of this encounter Care Teams Counterintelligence Agent Relationship Specialty Start Date End Date Alexandria Larkin NP [address] [place] [address] PCP - General NURSE PRACTITIONER 10/16/23 documented as of this encounter
--- OUTSIDE RECORDS SUMMARY | 2024-07-02 19:23 | XMS_ITS | Clinical Summary ---
Author Organization [facility] Address [address] [place] [address] Care Team Providers Care Pre Sales Technical Engineer Name Role Phone Unavailable Primary Care Provider Unavailabl e Source Comments [facility]non-owned Affiliates and Associated Physician Practices is amultiple site organization consisting of ambulatory clinics and hospital sitesin [place], [place], [place] and [place]. This disclosure is being madepursuant to the Care Everywhere program and may not contain all information available regarding this patient. Last updated 17.[facility] Allergies No known active allergies Medications * [...] patient's age to complete this topic Insurance [facility] MED[facility]
--- OUTSIDE RECORDS SUMMARY | 2024-07-02 19:23 | XMS_ITS | Encounter Summary ---
Author Organization [facility] Address [address] [place] [address] Care Team Providers Care Bead Wire Taper Name Role Phone Alexandria Larkin LOUVER DOOR ASSEMBLER Primary Care Provider Encounter Details Date Type Department Care Team (Late Contact Info) Description 11/18/2023 MyChart Message Enc [facility] [place] [address] [place], [place] [id number] Alexandria Larkin, LOUVER DOOR ASSEMBLER [address] [place], [place] [id number] update Social History Tobacco Use Types Packs/Day [...] Description 07/08/2024 2:00 PM CDT Office Visit [facility] [place] [address] [place] [address] Alexandria Larkin NP [address] [facility] [address] [place] [address] 07/13/2024 10:00 AM CDT [facility] [address] [facility] [place] [phone] Henri Doherty PA-C [address] [facility] [address] [place] [address] 07/23/2024 8:30 AM CDT Laboratory [facility] [place] [address] [address] [place] [address] Alexandria Larkin NP [address] [facility] [address] [place] [address] 09/24/2024 2:20 PM CDT [facility] [address] [facility], [address] [place] [phone] Alverto Frias MD 3 [facility], [address] [place] [address] 12/16/2024 8:00 AM CDT [facility] [address] [place] [address] Alexandria Larkin NP [address] [facility] [address] [place] [address] 12/16/2024 8:30 AM CDT Office Visit [facility] Medical Group Multispecialty Care - [place] [address] [place] [address] Alexandria Larkin NP [address] [facility] [address] [place] [address] documented as of this encounter Visit Diagnoses Not on filedocumented in this encounter Additional Health Concerns Infection Onset Date Last Indicated Resolved Time COVID-19 Rule Out 01/02/2024 01/02/2024 01/02/2024 5:02 PM ACCESSIONER documented as of this encounter Care Teams Bead Wire Taper Relationship Specialty Start Date End Date Alexandria Larkin NP [address] [place] [address] PCP - General NURSE PRACTITIONER 10/16/23 documented as of this encounter
--- OUTSIDE RECORDS SUMMARY | 2024-07-02 19:23 | XMS_ITS | Encounter Summary ---
Author Organization [facility] Address [address] [place] [address] Care Team Providers Care Surface Hydrologist Name Role Phone Alexandria Larkin PICKLE PROCESSOR Primary Care Provider Reason for Visit * Reason Onset Date Comments Question 06/30/2024 Encounter Details Date Type Department Care Team (Late st Contact Info) Description 06/30/2024 Telephone [facility] Medical [facility] Mult[facility] - [place] [address] [facility] [address] [place] [address] Alexandria Larkin, YOVANNY [address] [place], [place] [id number] Question Social History Tobacco Use Types Packs/Day [...] Description 07/08/2024 2:00 PM CDT [facility] [place] [address] [facility] [address] [place] [address] Alexandria Larkin, PICKLE PROCESSOR [address] [facility] [address] [place] [address] 07/13/2024 10:00 AM CDT [facility] [address] [facility] [place] [address] Henri Doherty PA-C [address] [facility] [address] [place] [address] 07/23/2024 8:30 AM CDT Laboratory Only [facility] - [place] [address] [place] [address] Alexandria Larkin, PICKLE PROCESSOR [address] [facility] [address] [place] [address] 09/24/2024 2:20 PM CDT Office Visit [facility] - [facility] [address] [facility], [facility] [address] [place] [address] Alverto Frias MD 3 [facility], [facility] [address] [place] [address] 12/16/2024 8:00 AM CDT Office [facility] - [place] [address] [place] [address] Alexandria Larkin NP [address] [facility] [address] [place] [address] 12/16/2024 8:30 AM CDT [facility] [place] [address] [place] [address] Alexandria Larkin NP [address] [facility] [address] [place] [address] documented as of this encounter Visit Diagnoses Not on filedocumented in this encounter Additional Health Concerns Assessment Noted Time PHQ-9 Depression Total Score: 2 06/06/19 25 2:41 PM CDT documented as of this encounter Care Teams Surface Hydrologist Relationship Specialty Start Date End Date Alexandria Larkin NP [address] [place] [address] PCP - General NURSE PRACTITIONER 10/16/23 documented as of this encounter
--- OUTSIDE RECORDS SUMMARY | 2024-07-02 19:23 | XMS_ITS | Encounter Summary ---
Author Organization [facility] Address [address] [place] [address] Care Team Providers Care Window Clerk Name Role Phone Alexandria Larkin EXPERIMENTAL MACHINIST Primary Care Provider [phone] Encounter Details Date Type Department Care Team (Late st Contact Info) Description 12/30/2023 [facility] [address] [place] Samuel MA Social History Tobacco Use [...] MEDICAL CENTER Medical [facility] Mult[facility]ty Care - [place] [address] [facility] [address] [place] [address] Alexandria Larkin, EXPERIMENTAL MACHINIST [address] [facility] [address] [place] [address] 07/13/2024 10:00 AM CDT Office Visit [facility] - [facility] [address] [facility] [place] [phone] Henri Doherty PA-C [address] [facility] [address] [place] [address] 07/23/2024 8:30 AM CDT Laboratory [facility] - [place] [address] [facility] [address] [place] [address] Alexandria Larkin NP [address] [facility] [address] [place] [address] 09/24/2024 2:20 PM CDT Office Visit [facility]ialty [facility] [address] [facility], [address] [place] [phone] Alverto Frias MD 3 [facility], [address] [place] [address] 12/16/2024 8:00 AM CDT Office Visit [facility] - [place] [address] [place] [address] Alexandria Larkin NP [address] [facility] [address] [place] [address] 12/16/2024 8:30 AM CDT [facility] [place] [address] [place] [address] Aelxandria Larkin, EXPERIMENTAL MACHINIST [address] [place] [address] documented as of this encounter Procedures Procedure [...] Rule Out 01/02/2024 01/02/2024 01/02/2024 5:02 PM SIMULATION TECH documented as of this encounter Care Teams Window Clerk Relationship Specialty Start Date End Date Alexandria Larkin, EXPERIMENTAL MACHINIST [address] [place] [address] PCP - General NURSE PRACTITIONER 10/16/23 documented as of this encounter
--- OUTSIDE RECORDS SUMMARY | 2024-07-02 19:23 | XMS_ITS | Referral Summary ---
Author Organization [facility] Address [address] [place] [address] Care Team Providers Care Field Cane Scaler Helper Name Role Phone Keiry Watt DO [...] on file Legal Sex Female 4:25 AM DIRECTOR LONG TERM CARE Gender Identity Not on file Sexual Orientation [...] Female Attending MD: Jeromy Sierra M.D. Room: [facility] ENDOSCOPY ROOM 02 Note Status: Finalized Procedure: [...] The scope was passed under direct vision.The [id number] was introduced through the anusand advanced to the cecum, identified by appendiceal orifice and ileocecal valve. The colonoscopy was performed with ease. The patient tolerated the procedure well. The quality of the bowelpreparation was excellent. The quality of the bowel preparation was evaluated using the BBPS (Homer BowelPreparation Scale) with scores of: Right Colon [...] Recently Relevant to Health Maintenance Insurance [place] [address] [place] [address] HEALTHCARE Advance Directives For more information, please contact: [phone] * Full Code (Latest Code Status on File) Date Activated Date Inactivated Comments 08/25/2021 10:14 AM 08/25/2021 4:25 PM Care Teams Field Cane Scaler Helper Relationship Specialty Start Date End Date Keiry Watt DO [address] [place] [address] PCP - General Family Medicine 02/19/19
--- OUTSIDE RECORDS SUMMARY | 2024-07-02 19:23 | XMS_ITS | Encounter Summary ---
Author Organization [facility] Address [address] [place] [address] Care Team Providers Care Change Control Specialist Name Role Phone Ari Larkin HVAC R TECH Primary Care Provider [phone] Reason for Visit * Reason Comments Leg Pain Head Injury Shoulder Pain Syncope Encounter Details Date Type Department Care Team (Late st Contact Info) Description 07/01/2024 2:20 PM CDT Office Visit [facility]ty Care - [place] [address] [place], [place] [id number] Ari Larkin, HVAC R TECH [address] [place], [place] [id number] Leg Pain; Head Injury; Shoulder Pain; Syncope [...] esophagitis Chronic bronchitis, unspecified chronic bronchitis type ([facility]) Epigastric pain History of colon cancer History of colectomy Jejunitis Adenocarcinoma of sigmoid colon ([facility] HHS/[facility]) Nausea Chronic GERD H/O gastroesophageal reflux (GERD) [...] the day of the encounter. This includes coxw-yl-gulv and lro-nqdp-te-face time I provided on the day of [...] syncope occurs again ARI LARKIN NP 07/01/2024 [facility], [facility]. [1] Past Medical History: Diagnosis Date Anxiety and depression Arthritis Cancer ([facility] HHS/HCC) COLON-18 INCHES REMOVED COPD (chronic obstructive pulmonary disease) ([facility] HHS/HCC) 2008 u Emphysema of lung ([facility] HHS/[facility]) GERD (gastroesophageal reflux disease) [2] Family History [...] 2:00 PM CDT [facility] [place] [address] [place] [address] Ari Larkin NP [address] [facility] [address] [place] [address] 07/13/2024 10:00 AM CDT [facility] Visit [facility] [address] [facility] [place] [address] Henri Doherty PA-C [address] [facility] [address] [place] [address] 07/23/2024 8:30 AM CDT Laboratory Only [facility] [place] [address] [place] [address] Air Larkin, HVAC R TECH [address] [place] [address] 09/24/2024 2:20 PM CDT [facility] [address] [facility], [address] [place] [address] Alverto Frias MD 3 [facility], [address] [place] [address] 12/16/2024 8:00 AM CDT [facility] [place] [address] [place] [address] Ari Larkin, HVAC R TECH [address] [facility] [address] [place] [address] 12/16/2024 8:30 AM CDT [facility] [place] [address] [place] [address] Ari Larkin, HVAC R TECH [address] [facility] [address] [place] [address] Pending Results Name Type Priority Associated Diagnoses [...] 3:42 PM CDTThis note is in progress. [facility] [address] [place] [address] Test Date: 2024-07-01 Pat Name: SHEYLA PACE Department: 171 Room: Gender: Female Antique Clock Repairer: : 1955 Requested By: DEREJE BARBA Order Number: [id number] Reading MD: DEREJE BARBA Measurements Intervals [place]more Rate: 73 P: 86 UT: 135 QRS: 84 QRSD: 92 T: 63 QT: 373 QTc: 411 Interpretive Statements SINUS RHYTHM documented in this encounter Results * (ABNORMAL) URINALYSIS (07/01/2024 7:07 PM CDT) COLOR (U) YELLOW 07/01/2024 8:23 PM CDT [facility] TRANSPARENCY CLEAR CLEAR 07/01/2024 8:23 PM CDT [facility] SPECIFIC GRAVITY (U) 1.010 1.003 - 1.040 07/01/2024 8:23 PM CDT [facility] U PH 5.5 5.0 - 9.0 07/01/2024 8:23 PM CDT [facility] PROTEIN RANDOM (U) NEGATIVE NEGATIVE 07/01/2024 8:23 PM CDT [facility] GLUCOSE (U) NEGATIVE NEGATIVE 07/01/2024 8:23 PM CDT [facility] KETONES MG/DL (U) NEGATIVE NEGATIVE 07/01/2024 8:23 PM CDT [facility] BILIRUBIN (U) NEGATIVE NEGATIVE 07/01/2024 8:23 PM CDT [facility] BLOOD (U) TRACE(A) NEGATIVE 07/01/2024 8:23 PM CDT [facility] UROBILINOGEN 0.2 0.0 - 2.0 EU/DL 07/01/2024 8:23 PM CDT [facility] NITRITES NEGATIVE NEGATIVE 07/01/2024 8:23 PM CDT [facility] LEUKOCYTES (U) NEGATIVE NEGATIVE 07/01/2024 8:23 PM CDT [facility] RBC/HPF 0-3 0 - 3 /HPF 07/01/2024 8:23 PM CDT [facility] WBC/HPF 0-3 0 - 3 /HPF 07/01/2024 8:23 PM CDT [facility] EPI/HPF 0-3 /HPF 07/01/2024 8:23 PM CDT [facility] BACTERIA (U) TRACE(A) NONE SEEN 07/01/2024 8:23 PM CDT [facility] URINE SPECIMEN OBTAINED BY CLEAN CATCH PROCEDURE / Unknown 07/01/2024 7:07 PM CDT us Ari Larkin NP URINE ORDERABLES Final Resu lt [facility] [address] [place] [address], * ALBUMIN URINE RANDOM W/CREATININE (07/01/2024 7:06 PM CDT) MICROALBUMIN (U) 3.0 <20 MG/L 07/03/19 25 10:45 AM CDT [facility] CREATININE RANDOM (U) 46.7 MG/DL 07/02/2024 10:27 AM CDT [facility] ALBUMIN/CREAT RATIO 6.4 <30 MG/G 07/02/2024 10:45 AM CDT [facility] URINE SPECIMEN / Unknown 07/01/2024 7:06 PM CDT us Ari Larkin NP URINE ORDERABLES Final Resu lt Performing Organization Address [facility] Co de Phone Number [address] [address], * TSH W/REFLEX (07/01/2024 3:45 PM CDT) TSH 1.962 0.358 - 3.740 uIU/ML 07/01/2024 8:00 PM CDT [facility] 07/01/2024 3:45 PM CDT us Ari Larkin NP LABORATORY Final Resul t Performing Organization Address [facility] de Phone Number [address] [address], [place] [phone] * MAGNESIUM (07/01/2024 3:45 PM CDT) MAGNESIUM 2.2 1.8 - 2.4 MG/DL 07/01/2024 8:00 PM CDT [facility] 07/01/2024 3:45 PM CDT us Ari Larkin NP LABORATORY Final Resul t Performing Organization Address [facility] Co de Phone Number [address] [address], [place] [phone] * (ABNORMAL) COMPREHENSIVE METABOLIC PANEL (07/01/2024 3:45 PM CDT) SODIUM S/P/B 136 136 - 145 MMOL/L 07/01/2024 8:00 PM CDT [facility] POTASSIUM S/P/B 4.9 3.5 - 5.1 MMOL/L 07/01/2024 8:00 PM CDT [facility] CHLORIDE S/P/B 100 98 - 107 MMOL/L 07/01/2024 8:00 PM CDT [facility] CO2 31.4 21 - 32 MMOL/L 07/01/2024 8:00 PM CDT [facility] GLUCOSE 90 70 - 99 MG/DL 07/01/2024 8:00 PM T [facility] BUN 31(H) 7 - 18 MG/DL 07/01/2024 8:00 PM CDT [facility] CREATININE S/P/B 0.99 0.55 - 1.02 MG/DL 07/01/2024 8:00 PM T [facility] CALCIUM S/P/B 9.9 8.4 - 10.5 MG/DL 07/01/2024 8:00 PM CDT [facility] BILIRUBIN TOTAL S/P/B 0.4 0.2 - 1.0 MG/DL 07/01/2024 8:00 PM T [facility] ALKALINE PHOSPHATASE S/P/B 87 55 - 142 U/L 07/01/2024 8:00 PM CDT [facility] AST 29 15 - 37 U/L 07/01/2024 8:00 PM CDT [facility] ALT 37 14 - 59 U/L 07/01/2024 8:00 PM CDT [facility] TOTAL PROTEIN S/P/B 7.3 6.4 - 8.2 G/DL 07/01/2024 8:00 PM CDT [facility] ALBUMIN S/P/B 3.8 3.4 - 5.0 G/DL 07/01/2024 8:00 PM CDT [facility] ANION GAP 4.6(L) 5 - 15 MMOL/L 07/01/2024 8:00 PM CDT [facility] Comment:REFERENCE RANGE NOT ESTABLISHED OSMOLALITY (CALC) 288 MOSM/KG 025 8:00 PM CDT [facility] Comment:REFERENCE RANGE NOT ESTABLISHED GFR ESTIMATE 62(L) >90 ML/MIN/1. 73 M2 07/01/2024 8:00 PM CDT [facility] GFR NOTES GFR REFERENCE S: 07/01/2024 8:00 PM CDT [facility] Comment: THE ESTIMATED GFR IS CALCULATED USING [...] Ari Larkin NP LABORATORY Final Resul t [facility] [address] [place] [address], * (ABNORMAL) CBC W/DIFF AUTOMATED (07/01/2024 3:45 PM CDT) WBC 7.07 4.00 - 10.80 x10'3/uL 07/01/2024 7:43 PM CDT [facility] RBC 4.59 4.10 - 5.40 x10'6/uL 07/01/2024 7:43 PM CDT [facility] HGB 14.1 12.0 - 16.0 G/DL 07/01/2024 7:43 PM CDT [facility] HCT 43.3 36.0 - 47.0 % 07/01/2024 7:43 PM CDT [facility] MCV 94.3 78.0 - 100.0 FL 07/01/2024 7:43 PM CDT [facility] MCH 30.7 27.0 - 31.0 PG 07/01/2024 7:43 PM CDT [facility] MCHC 32.6(L) 33.0 - 36.0 G/DL 07/01/2024 7:43 PM CDT [facility] RDW 13.5 11.5 - 14.5 % 07/01/2024 7:43 PM CDT [facility] PLT 367(H) 150 - 350 x10'3/uL 07/01/2024 7:43 PM CDT [facility] MPV 9.3 7.4 - 10.4 FL 07/01/2024 7:43 PM CDT [facility] DIFFERENTIAL TYPE AUTOMATED DIFFERENTIAL 07/01/2024 7:43 PM CDT [facility] NEUTROPHILS % 58.3 % 07/01/2024 7:43 PM CDT [facility] LYMPHOCYTES % 27.9 % 07/01/2024 7:43 PM CDT [facility] MONOCYTES % 12.3 % 07/01/2024 7:43 PM CDT [facility] EOSINOPHILS % 1.0 % 07/01/2024 7:43 PM CDT [facility] BASOPHILS % 0.4 % 07/01/2024 7:43 PM CDT [facility] IMMATURE GRANS % 0.1 % 07/01/2024 7:43 PM CDT [facility] ABS. NEUTROPHILS 4.12 1.60 - 8.30 x10'3/uL 07/01/2024 7:43 PM CDT [facility] ABS. LYMPHOCYTES 1.97 0.80 - 4.70 x10'3/uL 07/01/2024 7:43 PM CDT [facility] ABS. MONOCYTES 0.87 0.00 - 1.50 x10'3/uL 07/01/2024 7:43 PM CDT [facility] ABS. EOSINOPHILS 0.07 0.00 - 0.40 x10'3/uL 07/01/2024 7:43 PM CDT [facility] ABS. BASOPHILS 0.03 0.00 - 0.20 x10'3/uL 07/01/2024 7:43 PM CDT [facility] ABS. IMMATURE GRANULOCYTES 0.01 0.00 - 0.03 x10'3/uL 07/01/2024 7:43 PM CDT [facility] 07/01/2024 3:45 PM CDT us Ari Larkin NP LABORATORY Final Resul t [facility] [address] [place] [address], documented in this encounter Visit Diagnoses Diagnosis Leg cramps- Primary Cramp of limb Syncope, unspecified syncope type Other hyperlipidemia Abnormal kidney function Unspecified disorder of kidney and ureter Protein screening Special screening for other specified conditions documented in this encounter Additional Health Concerns Assessment Noted Time PHQ-9 Depression Total Score: 2 06/06/19 25 2:41 PM CDT documented as of this encounter Care Teams Change Control Specialist Relationship Specialty Start Date End Date Ari Larkin, HVAC R TECH [address] [place] [address] PCP - General NURSE PRACTITIONER 10/16/23 documented as of this encounter
--- OUTSIDE RECORDS SUMMARY | 2024-07-02 19:23 | XMS_ITS | Encounter Summary ---
Author Organization [facility] Address [address] [place] [address] Care Team Providers Care Management Rep Name Role Phone Alexandria Larkin HAZMAT TANKER DRIVER Primary Care Provider [phone] Encounter Details Date Type Department Care Team (Latest Contact Info) Description 11/18/2023 MyChart Message Enc [facility] Multispecialty Care - [facility] [address] [facility], [address] [place] [phone] Keiry Vernon NP [address] [facility] [address] [place] [address] Appointment change Social History Tobacco Use Types [...] 2:00 PM CDT [facility] [place] [address] [place] [address] Alexandria Larkin NP [address] [facility] [address] [place] [address] 07/13/2024 10:00 AM CDT [facility] [address] [facility] [place] [phone] eHnri Doherty PA-C [address] [facility] [address] [place] [address] 07/23/2024 8:30 AM CDT [facility] [place] [address] [facility] [address] [place] [address] Alexandria Larkin NP [address] [facility] [address] [place] [address] 09/24/2024 2:20 PM CDT [facility] [address] [facility], [address] [place] [phone] Alverto Frias MD 3 [facility], [address] [place] [address] 12/16/2024 8:00 AM CDT [facility] [place] [address] [facility] [address] [place] [address] Alexandria Larkin NP [address] [facility] [address] [place] [address] 12/16/2024 8:30 AM CDT Office Visit [facility] [place] [address] [place] [address] Alexandria Larkin NP [address] [place] [address] documented as of this encounter Visit Diagnoses Not on filedocumented in this encounter Additional Health Concerns Infection Onset Date Last Indicated Resolved Time COVID-19 Rule Out 01/02/2024 01/02/2024 01/02/2024 5:02 PM RADIAL DRILL OPERATOR documented as of this encounter Care Teams Management Rep Relationship Specialty Start Date End Date Alexandria Larkin NP [address] [place] [address] PCP - General NURSE PRACTITIONER 10/16/23 documented as of this encounter
--- OUTSIDE RECORDS SUMMARY | 2024-07-02 19:23 | XMS_ITS | Encounter Summary ---
Author Organization [facility] Address [address] [place] [address] Care Team Providers Care Rim Turning Machine Operator Name Role Phone Alexandria Larkin AUTO INSPECTOR Primary Care Provider [phone] Encounter Details Date Type Department Care Team [...] Description 07/08/2024 2:00 PM CDT Office Visit [facility] Mult[facility] Care - [place] [address] [place] [address] Alexandria Larkin, AUTO INSPECTOR [address] [place] [address] 07/13/2024 10:00 AM CDT Office Visit [facility] - [facility] [address] [facility] [place] [address] Henri Doherty PA-C [address] [facility] [address] [place] [address] 07/23/2024 8:30 AM CDT [facility] [place] [address] [place] [address] Alexandria Larkin NP [address] [place] [address] 09/24/2024 2:20 PM CDT [facility] [address] [facility], [address] [place] [address] Alverto Frias MD 3 [facility], [address] [place] [address] 12/16/2024 8:00 AM CDT [facility] [place] [address] [place] [address] Alexandria Larkin NP [address] [place] [address] 12/16/2024 8:30 AM CDT [facility] [place] [address] [place] [address] Alexandria Larkin NP [address] [place] [address] documented as of this encounter Visit Diagnoses Not on filedocumented in this encounter Additional Health Concerns Assessment Noted Time PHQ-9 Depression Total Score: 2 06/06/19 25 2:41 PM CDT documented as of this encounter Care Teams Rim Turning Machine Operator Relationship Specialty Start Date End Date Alexandria Larkin, AUTO INSPECTOR [address] [facility] [address] [place] [address] PCP - General NURSE PRACTITIONER 10/16/23 documented as of this encounter
--- OUTSIDE RECORDS SUMMARY | 2024-07-02 19:23 | XMS_ITS | Clinical Summary ---
Author Organization [facility] Address [address] [place] [address] Care Team Providers Care Front End Application Developer Name Role Phone Keiry Watt DO Primary [...] on file Legal Sex Female 4:25 AM BUTTON SEWING MACHINE OPERATOR Gender Identity Not on file Sexual Orientation [...] The scope was passed under direct vision.The [id number] was introduced through the anusand advanced to the cecum, identified by appendiceal orifice and ileocecal valve. The colonoscopy was performed with ease. The patient tolerated the procedure well. The quality of the bowelpreparation was excellent. The quality of the bowel preparation was evaluated using the BBPS (Alger BowelPreparation Scale) with scores of: Right Colon [...] Most Recently Relevant to Health Maintenance Insurance [facility] Advance Directives For more information, please contact: [phone] * Full Code (Latest Code Status on File) Date Activated Date Inactivated Comments 08/25/2021 10:14 AM 08/25/2021 4:25 PM Care Teams Front End Application Developer Relationship Specialty Start Date End Date Keiry Watt DO [address] [place] [address] PCP - General Family Medicine 02/19/19
--- NOTE | 2024-07-02 19:51 | ED_ITS ---
HPI - Syncope General Chief Complaint: Syncope Stated Complaint: need head ct scan Time Seen by Provider: 07/02/24 18:56 History of Present Illness HPI narrative: This is a 69-year-old female, with history of asthma and hyperlipidemia, who presents to the emergency department after a syncopal event 2 days ago. The patient states 3 days ago, her probiotics were increased. That night, the patient developed diffuse nonbloody diarrhea. This was followed by cramps in the bilateral legs. Patient states she stood use the bathroom, woke on the floor feeling pain the left side of the head and the shoulder. She believes she struck her head. She was seen at her primary care doctor's office with recommendation to obtain CT head today. She states she has no longer had diarrhea nor syncopal episodes nor cramping of the legs. She has no other complaints at this time. Related Data Allergies Allergy/AdvReac Type Severity Reaction Status Date / Time doxycycline AdvReac Intermediate Nausea Verified 10/04/23 08:25 Review of Systems 2 Review of Systems: All systems reviewed & are unremarkable except as noted in HPI and below PMFSH Past Medical History Medical History Chest discomfort Emphysema lung Lung nodule Smoking history Chest pain Cancer of colon History of COPD Surgical History Surgical History H/O hysterectomy with unilateral oophorectomy H/O partial resection of colon H/O: Family History Family History Mother Diabetes mellitus Sibling Acute myocardial infarction Sibling Acute myocardial infarction Social History Social History Social History: Pt is very confident in filling out medical forms. Pt has not received assistance in the last 12 months. Smoking packs per day: 0.75 Smoking cigarettes per day: 15.0 Years smoked: 35 Smoking pack-years: 26.25 Smoking status: Former smoker Tobacco type: cigarettes Second hand tobacco smoke exposure: Yes Smoking end date: 02/26/08 Alcohol intake: current Drinks per week: 1 Substance use: never Substance use type: does not use Do You Feel Safe in your Home?: Yes Lack of Transportation: No Lack of Food: Never True Current Housing: I Have Housing Concerned About Future Housing: No Difficulty Paying Gas/Electric Bills: No Difficulty Paying for Meds: No Currently Unemployed: No Education: High School Diploma/GED Difficulty w/ Childcare or Family Care: No Living arrangements: with family Occupation/Education: occupation Gender identity (if verbalized by the patient): Female Spiritual care concerns: No Agree to blood products: Yes Exam 2 Narrative: GENERAL: Well-developed, well-nourished, and in no acute distress. HEAD: Normocephalic, atraumatic. EYES: PERRLA and EOMI. ENT: Nares clear, no rhinorrhea or epistaxis. Mucous membranes moist. Oropharynx without tonsillar hypertrophy exudate or other lesions. NECK: Supple. No midline spine tenderness to palpation, step-off or crepitus CHEST: Clear to auscultation. No respiratory distress. No wheezes rales or rhonchi HEART: Regular rate and rhythm. No murmur heard. Normal peripheral pulses. ABDOMEN: Soft, nontender, nondistended, normal active bowel sounds. EXTREMITIES: Normal range of motion. No edema. SKIN: Warm, dry, no rash. NEURO: Alert and oriented x3. No focal deficit. Moving all 4 limbs spontaneously PSYCH: Normal mood and affect. Course Course Emergency Course: 20:55 - EKG not concerning for ischemia or arrhythmia. CBC within normal limits. Chemistries demonstrate mild hyponatremia with sodium of 133. BUN slightly increased at 27. The patient provided outpatient labs from yesterday that showed a BUN of 31. AST slightly elevated at 40. Chest x-ray and shoulder x-ray unremarkable. CT head negative for intracranial hemorrhage or skull fracture. The patient had a 20 point increase in heart rate on sitting upright with orthostatic vital signs but did not have lightheadedness. I suspect the patient's muscle spasms are related to hypernatremia. I suspect her syncopal episode is secondary to orthostatic hypotension from diarrhea. I discussed treatment options with the patient, including IV fluids verses oral hydration with electrolyte repletion at home. The patient elects the latter. I discussed the findings and recommendations with the patient. Discussed return and emergency precautions including signs/symptoms of arrhythmia, syncope, ACS and respiratory distress. The patient voiced understanding and agreement with the plan. All questions answered to her satisfaction. Vital Signs Vital signs: Vital Signs Temperature 97.3 F L 07/02/24 17:06 Pulse Rate 74 07/02/24 17:06 Respiratory Rate 16 07/02/24 17:06 Blood Pressure 106/62 07/02/24 17:06 Pulse Oximetry 98 07/02/24 17:06 Temperature 97.8 F 07/02/24 21:24 Pulse Rate 76 07/02/24 21:24 Respiratory Rate 16 07/02/24 21:24 Blood Pressure 137/76 07/02/24 21:24 Pulse Oximetry 98 07/02/24 21:24 MDM - Syncope MDM Narrative Medical decision making narrative: Plan: Imaging, EKG, labs, orthostatic vital signs, reassess Differential Diagnosis Differential diagnosis: Likely syncope due to orthostatic hypotension, vasovagal syncope and other (Arrhythmia, metabolic abnormality, anemia, intracranial hemorrhage, skull fracture, other) Lab Data 07/02/24 18:46 07/02/24 18:46 Labs: Lab Results 07/02/24 07/02/24 Range/Units 18:45 18:46 WBC 9.1 (4.5-10.0) K/mm3 RBC 4.56 (4.2-5.4) M/mm3 Hgb 13.9 (12.0-15.0) g/dL Hct 42.9 (37.0-47.0) % MCV 94.1 (80-100) fl MCH 30.5 (26-34) pg MCHC 32.4 (32-36) g/dl RDW 13.2 (11.5-14.5) % Plt Count 318 (150-375) k/mm3 MPV 8.7 (7.4-10.4) fl Immature Gran % (Auto) 0.2 (0-0.5) % Neut % (Auto) 63.2 (45.5-73.1) % Lymph % (Auto) 23.0 (18.3-44.2) % [place] % (Auto) 11.9 H (2.6-8.5) % Eos % (Auto) 1.1 (0-4.4) % Baso % (Auto) 0.6 (0.2-1.2) % Lymph # (Auto) 2.09 (0.9-3.2) K/mm3 [place] # (Auto) 1.1 H (0.1-0.6) K/mm3 Eos # (Auto) 0.1 (0-0.3) K/mm3 Baso # (Auto) 0.1 (0.0-0.1) K/mm3 Abs Immat Gran (auto) 0.02 (0.00-0.031) K/mm3 Absolute Neuts (auto) 5.8 (1.3-6.7) K/mm3 Absolute Nucleated RBC 0.000 (0.0-0.012) K/mm3 Nucleated RBC % 0.0 (0.0-0.2) % Sodium 133 L (137-145) mmol/L Potassium 4.1 (3.4-5.0) mmol/L Chloride 100 (98-107) mmol/L Carbon Dioxide 26 (22-30) mmol/L Anion Gap 7 (4-12) mmol/L BUN 27 H D (7-17) mg/dL Creatinine 0.88 (0.7-1.0) mg/dL Estim Creat Clear Calc 40 ml/min Estimated GFR > 60 (59 - ) Glucose 101 (65-110) mg/dL Calcium 9.4 (8.4-10.2) mg/dL Magnesium 2.0 (1.6-2.3) mg/dL Total Bilirubin 0.5 (0.2-1.3) mg/dL AST 40 H (14-36) U/L ALT 33 (6-35) U/L Alkaline Phosphatase 86 (38-126) U/L Total Creatine Kinase 67 (30-135) U/L Total Protein 8.0 (6.3-8.2) g/dL Albumin 4.3 (3.5-5.1) g/dL ECG Data EKG #1: Attestation: I personally reviewed and interpreted this ECG as follows: ECG completion date: 07/02/24 ECG completion time: 18:58 Prior ECG tracings: available for review Interpretation: Sinus rhythm, rate 60, normal axis, no ST segment elevations or T-wave inversions concerning for ischemia, normal intervals with QTC of 393. Compared to EKG done in September 2023, sinus bradycardia has resolved. Discharge Plan Discharge Clinical Impression: Syncope due to orthostatic hypotension, Acute hyponatremia Patient Disposition: Home Condition: Stable Instructions: Antibiotic Form, Hyponatremia (ED), Syncope (ED) Additional Instructions: You were seen in the emergency department. Your sodium was slightly decreased at 133. Your labs are otherwise largely unremarkable. Your BUN has improved to 27. Chest x-ray and x-ray the shoulder were not concerning for infection, injury to the lung or an obvious mass. A CT scan of the head was not concerning for bleeding or skull fracture. Your EKG was not concerning for abnormal heart rhythm. I recommend drinking plenty of fluids but taking care to replace electrolytes and follow-up with your primary care doctor. If you develop chest pain, shortness of breath, loss of consciousness, significant bleeding, or if you have other emergent concerns for life, limb, or eyesight, return to the emergency department. Patient Language: Slovenian Prescriptions: No Action Airsupra 90-80 mcg/actuation HFA aerosol inhaler 2 inh inhalation .Q4-6 hours PRN (Reason: shortness of breath or wheezing) Qty: 10.7 0RF Rx Instructions: as a single dose; may repeat up to 6 doses per day (12 inhalations) rosuvastatin 5 mg tablet 5 mg PO DAILY Qty: 90 0RF aspirin 81 mg tablet,chewable 81 mg PO DAILY Qty: 90 0RF omeprazole 40 mg capsule,delayed release(DR/EC) 40 mg PO DAILY Qty: 90 3RF Breztri Aerosphere 160-9-4.8 mcg/actuation HFA aerosol inhaler 2 inh inhalation BID Qty: 10.7 2RF Follow-up/Referrals: Henry,France Cid DO [Primary Care Provider] - 1 Week Time of Disposition: 20:56
== END 2024-07-02 21:25 | disposition home or self-care (01) ==
PROVIDERS: Emergency Medicine; Emergency Provider Preventive Medicine Aerospace Medicine; PCP Family Medicine
DX: I95.9 Hypotension, unspecified (principal); E87.1 Hypo-osmolality and hyponatremia; J45.909 Unspecified asthma, uncomplicated; E78.5 Hyperlipidemia, unspecified; Z85.038 Personal history of other malignant neoplasm of large intestine; Z87.891 Personal history of nicotine dependence
CPT/HCPCS: 36415; 70450; 71046; 73030; 80053; 82550; 83735; 85025; 93005; 99284

== ENCOUNTER 2024-07-07 14:06 | Outpatient (CLI) | payer OTHER, SELFPAY ==
--- NOTE | ~2024-07-07 | CT_ITS ---
CT Scan of the Chest without Contrast: Clinical Indication: Pulmonary nodule Technique: Contiguous sections were acquired throughout the chest without intravenous contrast. Dose reduction technique was used on this scan by utilizing automated exposure control and iterative recon struction technique. The dose-length product (DLP) was 65.27 mGy-cm. COMPARISON: 09/28/2023 Findings: There is no evidence of any significant mediastinal, hilar or axillary lymphadenopathy. Calcified med iastinal and left hilar lymph nodes are present. There is no evidence of pleural or pericardial effusion. Stable biapical scarring and right apical nodularity. Moderate to advanced emphysema with areas of pe ripheral chronic interstitial changes are present. Images through the upper abdomen reveal no abnormalities. Impression: Stable biapical scarring and right apical nodularity. Moderate to advanced emphysema. Reviewed, dictated and finalized at [facility]. Impression: Stable biapical scarring and right apical nodularity. Moderate to advanced emphysema.
--- OUTSIDE RECORDS SUMMARY | 2024-07-07 14:23 | XMS_ITS | Encounter Summary ---
Author Organization [facility] Address [address] [place] [address] Care Team Providers Care [employer] Laboratory Director Name Role Phone Alexandria Larkin PLANT ELECTRICAL ENGINEER Primary Care Provider Encounter Details Date Type Department Care Team (Latest Contact Info) Description 06/07/2024 Results Follow-Up [facility] [place] [address] [place], [place] [id number] Alexandria Larkin, PLANT ELECTRICAL ENGINEER [address] [place], [place] [id number] VITAMIN D 25 [place], COMPREHENSIVE METABOLIC PANEL [...] Description 07/08/2024 2:00 PM CDT [facility] [place] [address] [place] [address] Alexandria Larkin NP [address] [place] [address] 07/13/2024 10:00 AM CDT [facility] [address] [facility] [facility] [place] [phone] Henri Doherty PA-C [address] [facility] [address] [place] [address] 07/23/2024 8:30 AM CDT [facility] [place] [address] [place] [address] Alexandria Larkin NP [address] [place] [address] 09/24/2024 2:20 PM CDT [facility] [address] [facility] [place] [phone] Alverto Frias MD [address] [facility] [place] [address] 12/16/2024 8:00 AM CDT [facility] [place] [address] [place] [address] Alexandria Larkin NP [address] [place] [address] 12/16/2024 8:30 AM CDT Office Visit [facility] [place] [address] [place] [address] Alexandria Larkin NP [address] [place] [address] documented as of this encounter Visit Diagnoses Diagnosis Stage 3a chronic kidney disease (CMS/HCC)- Primary documented in this encounter Additional Health Concerns Assessment Noted Time PHQ-9 Depression Total Score: 2 06/06/19 25 2:41 PM CDT documented as of this encounter Care Teams [employer] Laboratory Director Relationship Specialty Start Date End Date Alexandria Larkin NP [address] [place] [address] PCP - General NURSE PRACTITIONER 10/16/23 documented as of this encounter
--- OUTSIDE RECORDS SUMMARY | 2024-07-07 14:24 | XMS_ITS | Clinical Summary ---
Author Organization [facility] Address [address] [place] [address] Care Team Providers Care Cancer Program Coordinator Name Role Phone Chaya Alexandria Mcdonald BEAM SAW OPERATOR Primary Care Provider Allergies Active Allergy Reactions [...] 11/15/2023 Jejunitis 10/25/2023 Adenocarcinoma of sigmoid colon ([facility] ) 10/25/2023 Mixed hyperlipidemia 10/16/2023 Gastroesophageal reflux disease without esophagi tis 10/16/2023 Chronic bronchitis, unspecif ied chronic bronchitis type ([facility]) 10/16/2023 Epigastric pain 10/16/2023 History of colon cancer 10/16/2023 History of colectomy 10/16/2023 Resolved Problems Problem Noted Date Diagnosed Date Resolved Date Anxiety 01/03/2024 06/07/2024 Chest pain, unspecified type 11/27/2023 11/27/2023 Encounters Date Type Department Care Team Description 07/05/2024 Results Follow-Up [place] [address] [address] [place] [address] Alexandria Larkin NP US RETROPERITONEAL COMP 07/02/2024 MyChart Message Enc [place] [address] [facility] [address] [place] [address] Alexandria Larkin, YOVANNY Head CT 07/02/2024 Telephone [place] [address] [facility] [address] [place] [address] Alexandria Larkin, YOVANNY Information 07/01/2024 2:20 PM CDT Office Visit [place] [address] [place] [address] Alexandria Larkin, BEAM SAW OPERATOR Leg Pain; Head Injury; Shoulder Pain; Syncope 07/01/2024 Orders Only [facility] - [place] [address] [place] [address] Alexandria Larkin, BEAM SAW OPERATOR 07/01/2024 Results [facility] - [place] [address] [place] [address] Alexandria Larkin, BEAM SAW OPERATOR EKG WELCHALLEN ACQUIRED, CBC W/DIFF AUTOMATED, COMPREHENSIVE METABOLIC PANEL, Additional followed-up results: 4 07/01/2024 Travel 06/30/2024 Telephone [facility] - [place] [address] [place] [address] Alexandria Larkin, BEAM SAW OPERATOR Question 06/26/2024 2:39 PM CDT - 06/26/2024 11:59 PM CDT Hospital Encounter [facility] [address] [address] Alexandria Larkin, BEAM SAW OPERATOR Discharge Disposition: Home or Self Care (Routine Discharge) 06/26/2024 Travel 06/11/2024 Orders Only [facility] - [place] [address] [place] [address] Alexandria Larkin, BEAM SAW OPERATOR 06/10/2024 Telephone [facility] [place] [address] [place] [address] Alexandria Larkin, BEAM SAW OPERATOR Results 06/08/2024 Orders Only [facility] - [place] [address] [place] [address] Alexandria Larkin, BEAM SAW OPERATOR 06/07/2024 Results Follow-Up [facility] - [place] [address] [place] [address] Alexandria Larkin, BEAM SAW OPERATOR VITAMIN D 25 [place], COMPREHENSIVE METABOLIC PANEL 06/05/2024 1:20 PM CDT Office Visit [facility] Multispecialty Care - [place] [address] [facility] [address] [place] [address] Alexandria Larkin, BEAM SAW OPERATOR Medication Check 06/05/2024 Travel from Last 3 Months Immunizations Immunization Administration Dates Next Due Influenza Adult (Generic) 12/16/2021,,11/08/2019,2018,12/01/2015,12/20/2014,11/15/2013,1 ,03/09/2012,12/22/2010 MODERNA COVID-19 BIVALENT (1 2+), MRNA, LNP-S, PF 02/15/2022 MODERNA COVID-19 (12+) MRNA, LNP-S, PF, 100 MCG/ 0.5 ML DOSE 07/19/2021,12/14/2020 Pneumococcal (Pneumovax 23) 12/22/2010 Pneumococcal (Prevnar 13) 12/21/2015 Pneumococcal (Prevnar 20) 06/23/2022 Shingrix 12/14/2020,11/08/2019 Tdap (Generic) 07/15/2016 Zoster (Zostavax) 57646 Unt/0.65Ml 12/01/2015 Family History Medical History Relation [...] 2:00 PM CDT [facility] - [place] [address] [address] [place] [address] Alexandria Larkin, YOVANNY [address] [place] [address] 07/13/2024 10:00 AM CDT [facility] - [facility] [address] [place] [address] Henri Doherty PA-C [address] [facility] [address] [place] [address] 07/23/2024 8:30 AM CDT [facility] - [address] [place] [address] Alexandria Larkin, BEAM SAW OPERATOR [address] [place] [address] 09/24/2024 2:20 PM CDT [facility] - [facility] [address] [facility] [address] [place] [address] Alverto Frias MD [address] [place] [address] 12/16/2024 8:00 AM CDT [facility] - [place] [address] [place] [address] Alexandria Larkin, BEAM SAW OPERATOR [address] [facility] [address] [place] [address] 12/16/2024 8:30 AM CDT Office Visit [facility] - [place] [address] [place] [address] Alexandria Larkin, BEAM SAW OPERATOR [address] [facility] [address] [place] [address] Health Maintenance Due Date Last Done Comments [...] 12/22/2010 Hepatitis C Completed 10/16/2023 PHQ-2 (Physician Chemehuevi) Completed 06/05/2024 Meningococcal B Vaccine Aged Out [...] complication, without long-term current use of insulin ([facility]) TSH W/REFLEX Routine 07/01/2024 3:45 PM CDT [...] 3:42 PM CDTThis note is in progress. [facility] Medical [facility] [address] [place] [address] Test Date: 2024-07-01 Pat Name: SHEYLA MINESH Department: 171 Room: Gender: Female [employer]: : 1955 Requested By: DEREJE BARBA Order Number: [id number] Reading MD: DEREJE BARBA Measurements Intervals [place] Rate: 73 P: 86 NC: 135 QRS: 84 QRSD: 92 T: 63 QT: 373 QTc: 411 Interpretive Statements SINUS RHYTHM US RETROPERITONEAL COMP Routine 06/26/2024 3:21 PM CDT Stage 3 chronic kidney disease, unspecified whether stage 3a or 3b CKD (CMS/HCC) COMPREHENSIVE METABOLIC PANEL Routine 06/05/2024 2:14 PM [...] COLOR (U) YELLOW 07/01/2024 8:23 PM CDT [facility] TRANSPARENCY CLEAR CLEAR 07/01/2024 8:23 PM CDT [facility] SPECIFIC GRAVITY (U) 1.010 1.003 - 1.040 07/01/2024 8:23 PM CDT [facility] U PH 5.5 5.0 - 9.0 07/01/2024 8:23 PM CDT [facility] PROTEIN RANDOM (U) NEGATIVE NEGATIVE 07/01/2024 8:23 PM CDT [facility] GLUCOSE (U) NEGATIVE NEGATIVE 07/01/2024 8:23 PM CDT [facility] KETONES MG/DL (U) NEGATIVE NEGATIVE 07/01/2024 8:23 PM CDT [facility] BILIRUBIN (U) NEGATIVE NEGATIVE 07/01/2024 8:23 PM CDT [facility] BLOOD (U) TRACE(A) NEGATIVE 07/01/2024 8:23 PM CDT [facility] UROBILINOGEN 0.2 0.0 - 2.0 EU/DL 07/01/2024 8:23 PM CDT [facility] NITRITES NEGATIVE NEGATIVE 07/01/2024 8:23 PM CDT [facility] LEUKOCYTES (U) NEGATIVE NEGATIVE 07/01/2024 8:23 PM CDT [facility] RBC/HPF 0-3 0 - 3 /HPF 07/01/2024 8:23 PM CDT [facility] WBC/HPF 0-3 0 - 3 /HPF 07/01/2024 8:23 PM CDT [facility] EPI/HPF 0-3 /HPF 07/01/2024 8:23 PM CDT [facility] BACTERIA (U) TRACE(A) NONE SEEN 07/01/2024 8:23 PM CDT [facility] URINE SPECIMEN OBTAINED BY CLEAN CATCH PROCEDURE / Unknown 07/01/2024 7:07 PM CDT us Alexandria Larkin NP URINE ORDERABLES Final Resu lt [facility] [address] [place] [address], * ALBUMIN URINE RANDOM W/CREATININE (07/01/2024 7:06 PM CDT) MICROALBUMIN (U) 3.0 <20 MG/L 07/03/19 10:45 AM CDT [facility] CREATININE RANDOM (U) 46.7 MG/DL 07/02/2024 10:27 AM CDT [facility] ALBUMIN/CREAT RATIO 6.4 <30 MG/G 07/02/2024 10:45 AM CDT [facility] URINE SPECIMEN / Unknown 07/01/2024 7:06 PM CDT us Alexandria Larkin NP URINE ORDERABLES Final Resu lt Performing Organization Address [facility] Co de Phone Number [address] [address], [place] [phone] * TSH W/REFLEX (07/01/2024 3:45 PM CDT) TSH 1.962 0.358 - 3.740 uIU/ML 07/01/2024 8:00 PM CDT [facility] 07/01/2024 3:45 PM CDT us Alexandria Larkin NP LABORATORY Final Resul t Performing Organization Address [facility]/[place] de Phone Number [address] [address], [place] [phone] * (ABNORMAL) COMPREHENSIVE METABOLIC PANEL (07/01/2024 3:45 PM CDT) Only the most recent of2 resultswithin the time period is included. SODIUM S/P/B 136 136 - 145 MMOL/L 07/01/2024 8:00 PM CDT [facility] POTASSIUM S/P/B 4.9 3.5 - 5.1 MMOL/L 07/01/2024 8:00 PM CDT [facility] CHLORIDE S/P/B 100 98 - 107 MMOL/L 07/01/2024 8:00 PM CDT [facility] CO2 31.4 21 - 32 MMOL/L 07/01/2024 8:00 PM [facility] GLUCOSE 90 70 - 99 MG/DL 07/01/2024 8:00 PM [facility] BUN 31(H) 7 - 18 MG/DL 07/01/2024 8:00 PM [facility] CREATININE S/P/B 0.99 0.55 - 1.02 MG/DL 07/01/2024 8:00 PM [facility] CALCIUM S/P/B 9.9 8.4 - 10.5 MG/DL 07/01/2024 8:00 PM [facility] BILIRUBIN TOTAL S/P/B 0.4 0.2 - 1.0 MG/DL 07/01/2024 8:00 PM [facility] ALKALINE PHOSPHATASE S/P/B 87 55 - 142 U/L 07/01/2024 8:00 PM [facility] AST 29 15 - 37 U/L 07/01/2024 8:00 PM [facility] ALT 37 14 - 59 U/L 07/01/2024 8:00 PM [facility] TOTAL PROTEIN S/P/B 7.3 6.4 - 8.2 G/DL 07/01/2024 8:00 [facility] ALBUMIN S/P/B 3.8 3.4 - 5.0 G/DL 07/01/2024 8:00 PM [facility] ANION GAP 4.6(L) 5 - 15 MMOL/L 07/01/2024 8:00 PM [facility] Comment:REFERENCE RANGE NOT ESTABLISHED OSMOLALITY (CALC) 288 MOSM/KG 025 8:00 PM [facility] Comment:REFERENCE RANGE NOT ESTABLISHED GFR ESTIMATE 62(L) >90 ML/MIN/1. 73 M2 07/01/2024 8:00 PM CDT [facility] GFR NOTES GFR REFERENCE S: 07/01/2024 8:00 PM CDT [facility] Comment: THE ESTIMATED GFR IS CALCULATED [...] Alexandria Larkin NP LABORATORY Final Resul t [facility] [address] [place] [address], * (ABNORMAL) CBC W/DIFF AUTOMATED (07/01/2024 3:45 PM CDT) WBC 7.07 4.00 - 10.80 x10'3/uL 07/01/2024 7:43 PM CDT [facility] RBC 4.59 4.10 - 5.40 x10'6/uL 07/01/2024 7:43 PM CDT [facility] HGB 14.1 12.0 - 16.0 G/DL 07/01/2024 7:43 PM CDT [facility] HCT 43.3 36.0 - 47.0 % 07/01/2024 7:43 PM CDT [facility] MCV 94.3 78.0 - 100.0 FL 07/01/2024 7:43 PM CDT [facility] MCH 30.7 27.0 - 31.0 PG 07/01/2024 7:43 PM CDT [facility] MCHC 32.6(L) 33.0 - 36.0 G/DL 07/01/2024 7:43 PM CDT [facility] RDW 13.5 11.5 - 14.5 % 07/01/2024 7:43 PM CDT [facility] PLT 367(H) 150 - 350 x10'3/uL 07/01/2024 7:43 PM CDT [facility] MPV 9.3 7.4 - 10.4 FL 07/01/2024 7:43 PM T [facility] DIFFERENTIAL TYPE AUTOMATED DIFFERENTIAL 07/01/2024 7:43 PM CDT [facility] NEUTROPHILS % 58.3 % 07/01/2024 7:43 PM CDT [facility] LYMPHOCYTES % 27.9 % 07/01/2024 7:43 PM CDT [facility] MONOCYTES % 12.3 % 07/01/2024 7:43 PM CDT [facility] EOSINOPHILS % 1.0 % 07/01/2024 7:43 PM CDT [facility] BASOPHILS % 0.4 % 07/01/2024 7:43 PM CDT [facility] IMMATURE GRANS % 0.1 % 07/01/2024 7:43 PM CDT [facility] ABS. NEUTROPHILS 4.12 1.60 - 8.30 x10'3/uL 07/01/2024 7:43 PM CDT [facility] ABS. LYMPHOCYTES 1.97 0.80 - 4.70 x10'3/uL 07/01/2024 7:43 PM CDT [facility] ABS. MONOCYTES 0.87 0.00 - 1.50 x10'3/uL 07/01/2024 7:43 PM CDT [facility] ABS. EOSINOPHILS 0.07 0.00 - 0.40 x10'3/uL 07/01/2024 7:43 PM CDT [facility] ABS. BASOPHILS 0.03 0.00 - 0.20 x10'3/uL 07/01/2024 7:43 PM CDT [facility] ABS. IMMATURE GRANULOCYTES 0.01 0.00 - 0.03 x10'3/uL 07/01/2024 7:43 PM CDT [facility] 07/01/2024 3:45 PM CDT Alexandria Larkin NP LABORATORY Final Resul t Performing Organization Address City/[facility]/ZIP Co de Phone Number [address] [address], [place] [phone] * MAGNESIUM (07/01/2024 3:45 PM CDT) MAGNESIUM 2.2 1.8 - 2.4 MG/DL 07/01/2024 8:00 PM CDT [facility] 07/01/2024 3:45 PM CDT Alexandria Larkin NP LABORATORY Final Resul t Performing Organization Address [facility]/ZIP Co de Phone Number [address] [address], [place] [phone] * US RETROPERITONEAL COMP (06/26/2024 3:21 PM CDT) Anatomical Region Laterality Modality Abdomen Ultrasound 07/05/2024 2:58 AM CDT Impressions 07/05/2024 3:02 AM CDT IMPRESSION: Unremarkable sonographic appearance of the bilateral kidneys and urinary bladder. Referred By: ALEXANDRIA LARKIN Interpreted By: Jeromy Sorenson MD, 07/05/2024 2:58 AM Narrative 07/05/2024 3:02 AM CDT [place] [id number] EXAMINATION: US RETROPERITONEAL COMP HISTORY: Chronic kidney disease. COMPARISON: MRI 12/16/2023. CT 10/16/2023. TECHNIQUE: Grayscale and color Doppler images of the kidneys and urinary bladder were obtained. FINDINGS: The right kidney measures 10.4 cm in length and demonstrates normal parenchymal echogenicity and cortical thickness. No right renal mass, stone or hydronephrosis identified. The left kidney measures 9.8 cm in length and demonstrates normal parenchymal echogenicity and cortical thickness.Small 9 mm cortically based simple cyst. No solid mass, stone or hydronephrosis. The urinary bladder appears unremarkable. Bilateral ureteral jets are present. Procedure Note Jeromy Sorenson MD - 07/05/[address] [address] EXAMINATION: US RETROPERITONEAL COMP HISTORY: Chronic kidney disease. COMPARISON: MRI 12/16/2023. CT 10/16/2023. TECHNIQUE: Grayscale and color Doppler images of the kidneys and urinarybladder were obtained. FINDINGS: The right kidney measures 10.4 cm in length and demonstrates normalparenchymal echogenicity and cortical thickness. No right renal mass,stone or hydronephrosis identified. The left kidney measures 9.8 cm in length and demonstrates normalparenchymal echogenicity and cortical thickness.Small 9 mm corticallybased simple cyst. No solid mass, stone or hydronephrosis. The urinary bladder appears unremarkable. Bilateral ureteral jets are present. IMPRESSION: Unremarkable sonographic appearance of the bilateral kidneys and urinarybladder. Referred By: ALEXANDRIA LARKIN Interpreted By: Jeromy Sorenson MD, 07/05/2024 2:58 AM us Alexandria Larkin BEAM SAW OPERATOR ULTRASOUND Final Resul t * VITAMIN D 25 [place] (06/05/2024 2:14 PM CDT) [facility] VITAMIN D 25 HYDROXY TOTAL S/P/B 37.5 30 - 100 NG/ML 06/06/2024 10:56 AM CDT [facility] Comment: DEFICIENT <20 INSUFFICIENT 20-30 SUFFICIENT 30-100 06/05/2024 2:14 PM CDT Alexandria Larkin NP LABORATORY Final Resul t Performing Organization Address [facility] Co de Phone Number [facility] [address] [place] [address], [place] [phone] * LIPID PANEL (12/28/2023) [facility] CHOLESTEROL 212 HDL 78 TRIGLYCERIDES 78 LDL (CALCULATED) 120 12/28/2023 Default History Genericprovider LABORATORY Final Result * HEPATITIS C ANTIBODY (10/16/2023 10:56 AM CDT) [facility] HEPATITIS C AB NON-REACTI VE NON-REACTI VE 10/16/2023 12:[address] [facility] 10/16/2023 10:5 6 AM CDT Alexandria Larkin NP LABORATORY Final Resul t [facility] [address] [place] [address], [place] [phone] * MAMMOGRAM GENERIC (SCAN ORDER) (02/05/2023) Anatomical Region Laterality Modality Other 02/05/2023 [facility] Scanned SCANNING Final Resu lt * COLONOSCOPY GENERIC (SCAN ORDER) (08/25/2021) 08/25/2021 us [facility] Scanned SCANNING Final Resu lt from Last 3 Months or Most Recently Relevant to Health Maintenance Insurance [employer] Care Teams Cancer Program Coordinator Relationship Specialt [id number]|2024-07-07 14:24:00|2024-07-07 14:23:00|XMS_ITS|BKG DAEMON|External Medical Summaries|[id number]|" Encounter Summary Created on: July 07, 2024 Sheyla Pace : 1955 Sex: Female Author Organization [facility] Address [address] [place] [address] Care Team Providers Care Cancer Program Coordinator Name Role Phone Alexandria Larkin BEAM SAW OPERATOR Primary Care Provider Reason for Visit * Reason Onset Date Comments Information 07/02/2024 Encounter Details Date Type Department Care Team (Late st Contact Info) Description 07/02/2024 Telephone [facility] - [place] [address] [address] [place] [address] Alexandria Larkin NP [address] [place] [address] Information Social History Tobacco Use Types Packs/Day [...] as of this encounter Progress Notes * Tj Geiger MA - 07/06/2024 1:11 PM CDTAddended by: TJ GEIGER on: 07/06/2024 01:11 PM Modules accepted: Orders * Tj Geiger MA - 07/03/2024 11:[address] done and on your desk * Alexandria Larkin NP - 07/02/2024 5:36 PM CDTAddended by: ALEXANDRIA LARKIN on: 07/02/2024 05:36 PM Modules accepted: [...] is anyway to get it done at [place] so she can avoid the long drive. Please advise. documented in this encounter Plan of Treatment Upcoming Encounters Date Type Department Care Team (Late st Contact Info) Description 07/08/2024 2:00 PM CDT Office Visit [facility] - [place] [address] [place] [address] Alexandria Larkin NP [address] [place] [address] 07/13/2024 10:00 AM CDT Office Visit [facility] [address] [facility] [place] [phone] Henri Doherty PA-C [address] [facility] [address] [place], [place] [id number] 07/23/2024 8:30 AM CDT Laboratory Only [facility] [place] [address] [place] [address] Alexandria Larkin BEAM SAW OPERATOR [address] [place] [address] 09/24/2024 2:20 PM CDT [facility] [address] [facility] [place] [phone] Alverto Frias MD [address] [facility], [address] [address] 12/16/2024 8:00 AM CDT Office Visit [facility] - [place] [address] [place] [address] Alexandria Larkin, YOVANNY [address] [place] [address] 12/16/2024 8:30 AM CDT [facility] [place] [address] [place] [address] Alexandria Larkin BEAM SAW OPERATOR [address] [place] [address] documented as of this encounter Visit Diagnoses Diagnosis Injury of head, initial encounter- Primary Syncope, unspecified syncope type documented in this encounter Additional Health Concerns Assessment Noted Time PHQ-9 Depression Total Score: 2 06/06/19 25 2:41 PM CDT documented as of this encounter Care Teams Cancer Program Coordinator Relationship Specialty Start Date End Date Alexandria Larkin, YOVANNY [address] [place] [address] PCP - General NURSE PRACTITIONER 10/16/23 documented as of this encounter "
--- OUTSIDE RECORDS SUMMARY | 2024-07-07 14:24 | XMS_ITS | Encounter Summary ---
Author Organization [facility] Address [address] [place] [address] Care Team Providers Care Addresser Name Role Phone Alexandria Larkin COTTON BUYER Primary Care Provider [phone]- [phone] Encounter Details Date Type Department Care Team (Late st Contact Info) Description 12/30/2023 Abstract [facility] [address] [place] Samuel MA Social History Tobacco Use [...] Description 07/08/2024 2:00 PM CDT Office Visit [facility] Multispecialty Care - [place] [address] [facility] [address] [place] [address] Alexandria Larkin, COTTON BUYER [address] [facility] [address] [place] [address] 07/13/2024 10:00 AM CDT Office Visit [facility] - [facility] [address] [facility] [place] [phone] Henri Doherty PA-C 3 [facility] [address] [place] [address] 07/23/2024 8:30 AM CDT [facility] [place] [address] [facility] [address] [place] [address] Alexandria Larkin NP [address] [facility] [address] [place] [address] 09/24/2024 2:20 PM CDT Office Visit [facility] Mult[facility]pecialty [facility] [address] [facility], [address] [place] [phone] Alverto Frias MD 3 [facility], [address] [place] [address] 12/16/2024 8:00 AM CDT Office Visit [facility] Multispecialty [facility] - [place] [address] [place] [address] Alexandria Larkin NP [address] [facility] [address] [place] [address] 12/16/2024 8:30 AM CDT [facility] [place] [address] [place] [address] Alexandria Larkin, COTTON BUYER [address] [place] [address] documented as of this encounter Procedures Procedure [...] Rule Out 01/02/2024 01/02/2024 01/02/2024 5:02 PM FLOTATION TANK OPERATOR documented as of this encounter Care Teams Addresser Relationship Specialty Start Date End Date Alexandria Larkin, COTTON BUYER [address] [place] [address] PCP - General NURSE PRACTITIONER 10/16/23 documented as of this encounter
--- OUTSIDE RECORDS SUMMARY | 2024-07-07 14:24 | XMS_ITS | Encounter Summary ---
Author Organization [facility] - [facility] Address [address] [place] [address] Care Team Providers Care Timber Management Specialist Name Role Phone Alexandria Larkin DIRECTOR OF HOUSING AND ENERGY SERVICES Primary Care Provider Encounter Details Date Type Department Care Team (Latest Contact Info) Description 07/05/2024 Results Follow-Up [facility] Multispecialty Care - [place] [address] [facility] [address] [place], [place] [id number] Alexandria Larkin, DIRECTOR OF HOUSING AND ENERGY SERVICES [address] [facility] [address] [place], [place] [id number] US RETROPERITONEAL COMP Social History Tobacco Use Types Packs/Day Years [...] Description 07/08/2024 2:00 PM CDT [facility] [place] [phone] [place] [address] Alexandria Larkin NP [address] [facility] [address] [place] [address] 07/13/2024 10:00 AM CDT [facility] [address] [facility] [place] [phone] Henri Doherty PA-C 3 [facility] [address] [place] [address] 07/23/2024 8:30 AM CDT Laboratory Only [facility] - [place] [address] [address] [facility] [address] [place] [address] Alexandria Larkin NP [address] [facility] [address] [place] [address] 09/24/2024 2:20 PM CDT [facility] [address] [facility], [address] [place] [phone] Alverto Frias MD 3 [facility], [address] [place] [address] 12/16/2024 8:00 AM CDT [facility] - [place] [phone] [facility] [address] [place] [address] Alexandria Larkin NP [address] [facility] [address] [place] [address] 12/16/2024 8:30 AM CDT Office Visit [facility] Multispecialty Care - [place] [address] [place] [address] Alexandria Larkin NP [address] [facility] [address] [place] [address] documented as of this encounter Visit Diagnoses Not on filedocumented in this encounter Additional Health Concerns Assessment Noted Time PHQ-9 Depression Total Score: 2 06/06/19 25 2:41 PM CDT documented as of this encounter Care Teams Timber Management Specialist Relationship Specialty Start Date End Date Alexandria Larkin NP [address] [facility] [address] [place] [address] PCP - General NURSE PRACTITIONER 10/16/23 documented as of this encounter
--- OUTSIDE RECORDS SUMMARY | 2024-07-07 14:24 | XMS_ITS | Encounter Summary ---
Author Organization [facility] Address [address] [place] [address] Care Team Providers Care Operational Assistant Name Role Phone Alexandria Larkin WARPER FIXER Primary Care Provider [phone]- [phone] Encounter Details Date Type Department Care Team (Late Contact Info) Description 07/01/2024 Orders Only [facility] Multispecialty Care - [place] [address] [facility] [address] [place] [address] Alexandria Larkin, WARPER FIXER [address] [facility] [address] [place], [place] [id number] Social History Tobacco Use Types Packs/Day Years [...] Description 07/08/2024 2:00 PM CDT [facility] - [place] [address] [place] [address] Alexandria Larkin NP [address] [facility] [address] [place] [address] 07/13/2024 10:00 AM CDT [facility] [facility] [address] [facility] [address] [place] [phone] Henri Doherty PA-C 3 [facility] [address] [place] [address] 07/23/2024 8:30 AM CDT Laboratory Only [facility] [place] - [place] [address] [address] [facility] [address] [place] [address] Alexandria Larkin, WARPER FIXER [address] [facility] [address] [place] [address] 09/24/2024 2:20 PM CDT [facility] [place] [facility] [address] [facility], [address] [place] [phone] Alverto Frias MD 3 [facility], [address] [place] [address] 12/16/2024 8:00 AM CDT [facility] [place] - [place] [address] [facility] [address] [place] [address] Alexandria Larkin WARPER FIXER [address] [facility] [address] [place] [address] 12/16/2024 8:30 AM CDT Office Visit [facility] Multispecialty Care - [place] [address] [place] [address] Alexandria Larkin Tamara, WARPER FIXER [address] [place] [address] documented as of this encounter Procedures Procedure Name Priority Date/Time Associated Diagnosis Comments URINALYSIS, AUTO, COMPLETE Routine 07/01/2024 7:07 PM CDT Abnormal kidney function ALBUMIN URINE RANDOM W/CREATININE Routine 07/01/2024 7:06 PM CDT Type 2 diabetes mellitus without complication, without long-term current use of insulin ([facility]) documented in this encounter Results * (ABNORMAL) URINALYSIS (07/01/2024 7:07 PM CDT) COLOR (U) YELLOW 07/01/2024 8:23 PM CDT [facility] TRANSPARENCY CLEAR CLEAR 07/01/2024 8:23 PM CDT [facility] SPECIFIC GRAVITY (U) 1.010 1.003 - 1.040 07/01/2024 8:23 PM CDT [facility] U PH 5.5 5.0 - 9.0 07/01/2024 8:23 PM CDT [facility] PROTEIN RANDOM (U) NEGATIVE NEGATIVE 07/01/2024 8:23 PM CDT [facility] GLUCOSE (U) NEGATIVE NEGATIVE 07/01/2024 8:23 PM CDT [facility] KETONES MG/DL (U) NEGATIVE NEGATIVE 07/01/2024 8:23 PM CDT [facility] BILIRUBIN (U) NEGATIVE NEGATIVE 07/01/2024 8:23 PM CDT [facility] BLOOD (U) TRACE(A) NEGATIVE 07/01/2024 8:23 PM CDT [facility] UROBILINOGEN 0.2 0.0 - 2.0 EU/DL 07/01/2024 8:23 PM CDT [facility] NITRITES NEGATIVE NEGATIVE 07/01/2024 8:23 PM CDT [facility] LEUKOCYTES (U) NEGATIVE NEGATIVE 07/01/2024 8:23 PM CDT [facility] RBC/HPF 0-3 0 - 3 /HPF 07/01/2024 8:23 PM CDT [facility] WBC/HPF 0-3 0 - 3 /HPF 07/01/2024 8:23 PM CDT [facility] EPI/HPF 0-3 /HPF 07/01/2024 8:23 PM CDT [facility] BACTERIA (U) TRACE(A) NONE SEEN 07/01/2024 8:23 PM CDT [facility] URINE SPECIMEN OBTAINED BY CLEAN CATCH PROCEDURE / Unknown 07/01/2024 7:07 PM CDT us Alexandria Larkin NP URINE ORDERABLES Final Resu lt [facility] [address] [place] [address], * ALBUMIN URINE RANDOM W/CREATININE (07/01/2024 7:06 PM CDT) MICROALBUMIN (U) 3.0 <20 MG/L 07/03/19 10:45 AM CDT [facility] CREATININE RANDOM (U) 46.7 MG/DL 07/02/2024 10:27 AM CDT [facility] ALBUMIN/CREAT RATIO 6.4 <30 MG/G 07/02/2024 10:45 AM CDT [facility] URINE SPECIMEN / Unknown 07/01/2024 7:06 PM CDT us Alexandria Larkin NP URINE ORDERABLES Final Resu lt [facility] [address] [facility] [place] [address], documented in this encounter Visit Diagnoses Diagnosis Type 2 diabetes mellitus without complication, without long-term current use of insulin ([facility]) Abnormal kidney function Unspecified disorder of kidney and ureter documented in this encounter Additional Health Concerns Assessment Noted Time PHQ-9 Depression Total Score: 2 06/06/19 25 2:41 PM CDT documented as of this encounter Care Teams Operational Assistant Relationship Specialty Start Date End Date Alexandria Larkin, WARPER FIXER [address] [place] [address] PCP - General NURSE PRACTITIONER 10/16/23 documented as of this encounter
--- OUTSIDE RECORDS SUMMARY | 2024-07-07 14:24 | XMS_ITS | Encounter Summary ---
Author Organization [facility] Address [address] [place] [address] Care Team Providers Care River Rafting Guide Name Role Phone ChayaAlexandria gonsalez Tamara TECHNOLOGY SERVICES MANAGER Primary Care Provider [phone] Encounter Details Date Type Department Care Team (Late Contact Info) Description 11/18/2023 [place] Message Enc [facility], [address] [phone] Naveen Vargas MD [facility]. [address] [phone] Appointment change Social History Tobacco Use Types [...] Description 07/08/2024 2:00 PM CDT Office [facility] [place] [address] [address] [facility] [address] [place] [address] Alexandria Larkin, TECHNOLOGY SERVICES MANAGER [address] [facility] [address] [place] [address] 07/13/2024 10:00 AM CDT [facility] [address] [place] [facility] [place] [phone] Henri Doherty PA-C 3 [facility] [address] [place] [address] 07/23/2024 8:30 AM CDT [facility] [place] [address] [place] [address] [address] [place] [address] Alexandria Larkin, YOVANNY [address] [facility] [address] [place] [address] 09/24/2024 2:20 PM CDT [facility] [address] [facility], [address] [place] [phone] Alverto Frias MD 3 [facility], [address] [place] [address] 12/16/2024 8:00 AM CDT [facility] [place] [address] [address] [facility] [address] [place] [address] Alexandria Larkin, TECHNOLOGY SERVICES MANAGER [address] [facility] [address] [place] [address] 12/16/2024 8:30 AM CDT Office Visit [facility] Multispecialty Care - [place] [address] [place] [address] Alexandria Larkin NP [address] [place] [address] documented as of this encounter Visit Diagnoses Not on filedocumented in this encounter Additional Health Concerns Infection Onset Date Last Indicated Resolved Time COVID-19 Rule Out 01/02/2024 01/02/2024 01/02/2024 5:02 PM STORE SHOPPER documented as of this encounter Care Teams River Rafting Guide Relationship Specialty Start Date End Date Alexandria Larkin NP [address] [place] [address] PCP - General NURSE PRACTITIONER 10/16/23 documented as of this encounter
--- OUTSIDE RECORDS SUMMARY | 2024-07-07 14:24 | XMS_ITS | Encounter Summary ---
Author Organization [facility] Address [address] [place] [address] Care Team Providers Care Numerical Control Router Operator Name Role Phone Ari Larkin RESAW CARRIAGE OPERATOR Primary Care Provider Reason for Visit * Reason Comments Leg Pain Head Injury Shoulder Pain Syncope Encounter Details Date Type Department Care Team (Late st Contact Info) Description 07/01/2024 2:20 PM CDT Office Visit [facility] Mult[facility]ialty Care - [place] [address] [place], [place] [address] Ari Larkin, RESAW CARRIAGE OPERATOR [address] [place], [place] [address] Leg Pain; Head Injury; Shoulder Pain; Syncope [...] esophagitis Chronic bronchitis, unspecified chronic bronchitis type ([facility]) Epigastric pain History of colon cancer History of colectomy Jejunitis Adenocarcinoma of sigmoid colon ([facility]) Nausea Chronic GERD H/O gastroesophageal reflux [...] 111/71 Pulse: 68 Resp: 16 Temp: 97.6 Â°F (36.4 Â°C) TempSrc: Core SpO2: 98% Weight: 46.2 kg (101 lb 12.8 oz) Height: 1.575 m (5' 2 ) Body mass index is 18.62 kg/mÂ². Physical Exam Constitutional: Appearance: Normal appearance. Eyes: [...] the day of the encounter. This includes mmds-je-yurb and roi-xorq-cl-face time I provided on the day of [...] syncope occurs again ARI LARKIN NP 07/01/2024 [facility], [facility]. [1] Past Medical History: Diagnosis Date Anxiety and depression Arthritis Cancer ([facility]) COLON-18 INCHES REMOVED COPD (chronic obstructive pulmonary disease) ([facility] H[facility]/H[facility]) 2008 u Emphysema of lung ([facility]) GERD (gastroesophageal reflux disease) [2] Family [...] PM CDT [facility] [place] [address] [place] [address] Ari Larkin NP [address] [place] [address] 07/13/2024 10:00 AM CDT [facility] 3 [facility], [address] [place] [address] Henri Doherty PA-C 3 [facility] [address] [place] [address] 07/23/2024 8:30 AM CDT Laboratory Only [facility] [place] [address] [place] [address] Ari Larkin, RESAW CARRIAGE OPERATOR [address] [place] [address] 09/24/2024 2:20 PM CDT [facility] [address] [facility] [address], [address] [place] [address] Alverto Frias MD 3 [facility], [address] [place] [address] 12/16/2024 8:00 AM CDT [facility] [place] [address] [place] [address] Ari Larkin, RESAW CARRIAGE OPERATOR [address] [place] [address] 12/16/2024 8:30 AM CDT [facility] [place] [address] [place] [address] Ari Larkin, RESAW CARRIAGE OPERATOR [address] [place] [address] Pending Results Name Type Priority Associated Diagnoses [...] PM CDTThis note is in progress. [facility] [address] [place] [address] Test Date: 2024-07-01 Pat Name: SHEYLA PACE Department: 171 Room: Gender: Female Roast Master: : 1955 Requested By: DEREJE BARBA Order Number: [id number] Reading MD: DEREJE BARBA Measurements Intervals [place] Rate: 73 P: 86 FL: 135 QRS: 84 QRSD: 92 T: 63 [...] Final Resu lt [facility] [address] [place] [address], * ALBUMIN URINE RANDOM W/CREATININE (07/01/2024 7:06 PM CDT) MICROALBUMIN (U) 3.0 <20 MG/L 07/03/19 10:45 AM CDT [facility] CREATININE RANDOM (U) 46.7 MG/DL 07/02/2024 10:27 AM CDT [facility] ALBUMIN/CREAT RATIO 6.4 <30 MG/G 07/02/2024 10:45 AM CDT [facility] URINE SPECIMEN / Unknown 07/01/2024 7:06 PM CDT us Ari Larkin NP URINE ORDERABLES Final Resu lt Performing Organization Address [facility] Co de Phone Number [address] [address], * TSH W/REFLEX (07/01/2024 3:45 PM CDT) TSH 1.962 0.358 - 3.740 uIU/ML 07/01/2024 8:00 PM CDT [facility] 07/01/2024 3:45 PM CDT us Ari Larkin NP LABORATORY Final Resul t Performing Organization Address [facility] de Phone Number [address] [phone], * MAGNESIUM (07/01/2024 3:45 PM CDT) MAGNESIUM 2.2 1.8 - 2.4 MG/DL 07/01/2024 8:00 PM CDT [facility] 07/01/2024 3:45 PM CDT us Ari Larkin NP LABORATORY Final Resul t Performing Organization Address [facility] Co de Phone Number [address] [address], * (ABNORMAL) COMPREHENSIVE METABOLIC PANEL (07/01/2024 3:45 PM CDT) SODIUM S/P/B 136 136 - 145 MMOL/L 07/01/2024 8:00 PM CDT [facility] POTASSIUM S/P/B 4.9 3.5 - 5.1 MMOL/L 07/01/2024 8:00 PM CDT [facility] CHLORIDE S/P/B 100 98 - 107 MMOL/L 07/01/2024 8:00 PM CDT -[facility] CO2 31.4 21 - 32 MMOL/L 07/01/2024 8:00 PM CDT [facility] GLUCOSE 90 70 - 99 MG/DL 07/01/2024 8:00 PM [facility] BUN 31(H) 7 - 18 MG/DL 07/01/2024 8:00 PM T [facility] CREATININE S/P/B 0.99 0.55 - 1.02 MG/DL 07/01/2024 8:00 PM [facility] CALCIUM S/P/B 9.9 8.4 - 10.5 MG/DL 07/01/2024 8:00 PM T [facility] BILIRUBIN TOTAL S/P/B 0.4 0.2 - 1.0 MG/DL 07/01/2024 8:00 PM T [facility] ALKALINE PHOSPHATASE S/P/B 87 55 - 142 U/L 07/01/2024 8:00 PM T [facility] AST 29 15 - 37 U/L 07/01/2024 8:00 PM CDT [facility] ALT 37 14 - 59 U/L 07/01/2024 8:00 PM CDT [facility] TOTAL PROTEIN S/P/B 7.3 6.4 - 8.2 G/DL 07/01/2024 8:00 PM T [facility] ALBUMIN S/P/B 3.8 3.4 - 5.0 G/DL 07/01/2024 8:00 PM T [facility] ANION GAP 4.6(L) 5 - [...] LABORATORY Final Resul t [facility] [address] [place] [address], * (ABNORMAL) CBC W/DIFF AUTOMATED (07/01/2024 3:45 PM CDT) WBC 7.07 4.00 - 10.80 x10'3/uL 07/01/2024 7:43 PM CDT [facility] RBC 4.59 4.10 - 5.40 x10'6/uL 07/01/2024 7:43 PM CDT [facility] HGB 14.1 12.0 - 16.0 G/DL 07/01/2024 7:43 PM CDT [facility] HCT 43.3 36.0 - 47.0 % 07/01/2024 7:43 PM CDT [facility] MCV 94.3 78.0 - 100.0 FL 07/01/2024 7:43 PM CDT [facility] MCH 30.7 27.0 - 31.0 PG 07/01/2024 7:43 PM CDT [facility] MCHC 32.6(L) 33.0 - 36.0 G/DL 07/01/2024 7:43 PM CDT [facility] RDW 13.5 11.5 - 14.5 % 07/01/2024 7:43 PM CDT [facility] PLT 367(H) 150 - 350 x10'3/uL 07/01/2024 7:43 PM CDT [facility] MPV 9.3 7.4 - 10.4 FL 07/01/2024 7:43 PM CDT [facility] DIFFERENTIAL TYPE AUTOMATED DIFFERENTIAL 07/01/2024 7:43 PM CDT [facility] NEUTROPHILS % 58.3 % 07/01/2024 7:43 PM CDT [facility] LYMPHOCYTES % 27.9 % 07/01/2024 7:43 PM CDT [facility] MONOCYTES % 12.3 % 07/01/2024 7:43 PM CDT [facility] EOSINOPHILS % 1.0 % 07/01/2024 7:43 PM CDT [facility] BASOPHILS % 0.4 % 07/01/2024 7:43 PM CDT [facility] IMMATURE GRANS % 0.1 % 07/01/2024 7:43 PM CDT [facility] ABS. NEUTROPHILS 4.12 1.60 - 8.30 x10'3/uL 07/01/2024 7:43 PM CDT -[facility] ABS. LYMPHOCYTES 1.97 0.80 - 4.70 x10'3/uL 07/01/2024 7:43 PM CDT [facility] ABS. MONOCYTES 0.87 0.00 - 1.50 x10'3/uL 07/01/2024 7:43 PM CDT [facility] ABS. EOSINOPHILS 0.07 0.00 - 0.40 x10'3/uL 07/01/2024 7:43 PM CDT [facility] ABS. BASOPHILS 0.03 0.00 - 0.20 x10'3/uL 07/01/2024 7:43 PM CDT [facility] ABS. IMMATURE GRANULOCYTES 0.01 0.00 - 0.03 x10'3/uL 07/01/2024 7:43 PM CDT [facility] 07/01/2024 3:45 PM CDT us Ari Larkin NP LABORATORY Final Resul t [facility] [address] [place] [address], documented in this encounter Visit Diagnoses Diagnosis Leg cramps- Primary Cramp of limb Syncope, unspecified syncope type Other hyperlipidemia Abnormal kidney function Unspecified disorder of kidney and ureter Protein screening Special screening for other specified conditions documented in this encounter Additional Health Concerns Assessment Noted Time PHQ-9 Depression Total Score: 2 06/06/19 25 2:41 PM CDT documented as of this encounter Care Teams Numerical Control Router Operator Relationship Specialty Start Date End Date Ari Larkin, RESAW CARRIAGE OPERATOR [address] [place] [address] PCP - General NURSE PRACTITIONER 10/16/23 documented as of this encounter
--- OUTSIDE RECORDS SUMMARY | 2024-07-07 14:24 | XMS_ITS | Encounter Summary ---
Author Organization [facility] Address [address] [place] [address] Care Team Providers Care Chief Service Observer Name Role Phone Alexandria Larkin INDEPENDENT FILM MAKER Primary Care Provider [phone] Encounter Details Date Type Department Care Team (Latest Contact Info) Description 07/01/2024 Results Follow-Up [facility] Multispecialty Care - [place] [address] [place], [place] [address] Alexandria Larkin, INDEPENDENT FILM MAKER [address] [place], [place] [address] EKG WELCHALLEN ACQUIRED, CBC W/DIFF AUTOMATED, COMPREHENSIVE [...] Description 07/08/2024 2:00 PM CDT Office Visit [facility] Multispecialty Care - [place] [address] [facility] [address] [place] [address] Alexandria Larkin NP [address] [place] [address] 07/13/2024 10:00 AM CDT Office Visit [facility] Multispecialty [facility] [address] [facility] [place] [phone] Henri Doherty PA-C 3 [facility] [address] [place] [address] 07/23/2024 8:30 AM CDT Laboratory [facility] [place] [address] [facility] [address] [place] [address] Alexandria Larkin NP [address] [facility] [address] [place] [address] 09/24/2024 2:20 PM CDT Office Visit [facility] Multispecialty [facility] 3 [facility], [address] [place] [phone] Alverto Frias MD 3 [facility], [address] [place] [address] 12/16/2024 8:00 AM CDT [facility] [place] [address] [place] [address] Alexandria Larkin, YOVANNY [address] [place] [address] 12/16/2024 8:30 AM CDT Office Visit [facility] Mult[facility]pecialty Care - [place] [address] [place] [address] Alexandria Larkin, INDEPENDENT FILM MAKER [address] [place] [address] documented as of this encounter Visit Diagnoses Not on filedocumented in this encounter Additional Health Concerns Assessment Noted Time PHQ-9 Depression Total Score: 2 06/06/19 25 2:41 PM CDT documented as of this encounter Care Teams Chief Service Observer Relationship Specialty Start Date End Date Alexandria Larkin, INDEPENDENT FILM MAKER [address] [place] [address] PCP - General NURSE PRACTITIONER 10/16/23 documented as of this encounter
--- OUTSIDE RECORDS SUMMARY | 2024-07-07 14:24 | XMS_ITS | Referral Summary ---
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 Room: [facility] ENDOSCOPY ROOM 02 Note Status: [...] The scope was passed under direct vision.The [id number] was introduced through the anusand advanced to the cecum, identified by appendiceal orifice and ileocecal valve. The colonoscopy was performed with ease. The patient tolerated the procedure well. The quality of the bowelpreparation was excellent. The quality of the bowel preparation was evaluated using the BBPS ([place] BowelPreparation Scale) with scores of: Right Colon [...] Recently Relevant to Health Maintenance Insurance [place] [place] [address] HEALTHCARE Advance Directives For more information, please contact: [phone] * Full Code (Latest Code Status on File) Date Activated Date Inactivated Comments 08/25/2021 10:14 AM 08/25/2021 4:25 PM Care Teams Teaching Artist Relationship Specialty Start Date End Date Keiry Watt DO [address] [place] [address] PCP - General Family Medicine 02/19/19
--- OUTSIDE RECORDS SUMMARY | 2024-07-07 14:24 | XMS_ITS | Encounter Summary ---
Author Organization [facility] Address [address] [place] [address] Care Team Providers Care Electrolysis Needle Operator Name Role Phone Alexandria Larkin MANAGER ASSET Primary Care Provider Encounter Details Date Type Department Care Team (Latest Contact Info) Description 11/18/2023 MyChart Message Enc [facility] - [facility] [address] [facility], [address] [place] [phone] Keiry Vernon NP 3 [facility] [address] [place] [address] Appointment change Social History Tobacco Use Types [...] 2:00 PM CDT [facility] [place] [address] [place] [address] Alexandria Larkin NP [address] [place] [address] 07/13/2024 10:00 AM CDT [facility] 3 [facility] [place] [phone] Henri Doherty PA-C 3 [facility] [address] [place] [address] 07/23/2024 8:30 AM CDT [facility] Only [facility] [place] [address] [place] [address] Alexandria Larkin NP [address] [place] [address] 09/24/2024 2:20 PM CDT [facility] 3 [facility], [address] [place] [phone] Alverto Frias MD 3 [facility], [address] [place] [address] 12/16/2024 8:00 AM CDT [facility] - [place] [address] [place] [address] Alexandria Larkin NP [address] [place] [address] 12/16/2024 8:30 AM CDT Office Visit [facility] - [place] [address] [place] [address] Alexandria Larkin NP [address] [place] [address] documented as of this encounter Visit Diagnoses Not on filedocumented in this encounter Additional Health Concerns Infection Onset Date Last Indicated Resolved Time COVID-19 Rule Out 01/02/2024 01/02/2024 01/02/2024 5:02 PM RELATIONS LIAISON documented as of this encounter Care Teams Electrolysis Needle Operator Relationship Specialty Start Date End Date Alexandria Larkin NP [address] [place] [address] PCP - General NURSE PRACTITIONER 10/16/23 documented as of this encounter
--- OUTSIDE RECORDS SUMMARY | 2024-07-07 14:24 | XMS_ITS | Encounter Summary ---
Author Organization [facility] Address [address] [place] [address] Care Team Providers Care Business Excellence Manager Name Role Phone Alexandria Larkin CRANE OPERATOR CAB Primary Care Provider Encounter Details Date Type Department Care Team (Late Contact Info) Description 11/15/2023 MyChart Message Enc [facility] [address] [facility] [address] [place], [place] [address] Alexandria Larkin, CRANE OPERATOR CAB [address] [place], [place] [address] F/u question Social History Tobacco Use Types [...] Description 07/08/2024 2:00 PM CDT Office [facility] Multispecialty [place] [address] [facility] [address] [place] [address] Alexandria Larkin NP [address] [facility] [address] [place] [address] 07/13/2024 10:00 AM CDT [facility] 3 [facility] [address] [place] [phone] Henri Doherty PA-C 3 [facility] [address] [place] [address] 07/23/2024 8:30 AM CDT Laboratory [facility] [place] [address] [address] [address] [place] [address] Alexandria Larkin NP [address] [facility] [address] [place] [address] 09/24/2024 2:20 PM CDT Office [facility] 3 [facility], [address] [place] [phone] Alverto Frias MD 3 [facility], [address] [place] [address] 12/16/2024 8:00 AM CDT Office [facility] [place] [address] [facility] [address] [place] [address] Alexandria Larkin, YOVANNY [address] [facility] [address] [place] [address] 12/16/2024 8:30 AM CDT Office Visit [facility] Multispecialty Care - [place] 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
--- OUTSIDE RECORDS SUMMARY | 2024-07-07 14:24 | XMS_ITS | Encounter Summary ---
Author Organization [facility] Address [address] [place] [address] Care Team Providers Care Inventory Clerk Name Role Phone Alexandria Larkin WELL LOGGING MUD ANALYSIS CAPTAIN Primary Care Provider Encounter Details Date Type Department Care Team (Late Contact Info) Description 11/18/2023 MyChart Message Enc [facility] Multispecialty [facility] - [place] [address] [place], [place] [address] Alexandria Larkin, WELL LOGGING MUD ANALYSIS CAPTAIN [address] [place], [place] [address] update Social History Tobacco Use Types Packs/Day [...] Description 07/08/2024 2:00 PM CDT Office Visit [facility] Multispecialty [facility] - [place] [address] [place] [address] Alexandria Larkin NP [address] [facility] [address] [place] [address] 07/13/2024 10:00 AM CDT [facility] 3 [facility] [place] [phone] Henri Doherty PA-C 3 [facility] [address] [place] [address] 07/23/2024 8:30 AM CDT Laboratory Only [facility] - [place] [address] [address] [place] [address] Alexandria Larkin NP [address] [facility] [address] [place] [address] 09/24/2024 2:20 PM CDT [facility] 3 [facility], [address] [place] [phone] Alverto Frias MD 3 [facility], [address] [place] [address] 12/16/2024 8:00 AM CDT [facility] - [address] [place] [address] Alexandria Larkin NP [address] [facility] [address] [place] [address] 12/16/2024 8:30 AM CDT Office Visit [facility] Care - [place] [address] [place] [address] Alexandria Larkin NP [address] [facility] [address] [place] [address] documented as of this encounter Visit Diagnoses Not on filedocumented in this encounter Additional Health Concerns Infection Onset Date Last Indicated Resolved Time COVID-19 Rule Out 01/02/2024 01/02/2024 01/02/2024 5:02 PM BOAT LABORER documented as of this encounter Care Teams Inventory Clerk Relationship Specialty Start Date End Date Alexandria Larkin NP [address] [place] [address] PCP - General NURSE PRACTITIONER 10/16/23 documented as of this encounter
--- OUTSIDE RECORDS SUMMARY | 2024-07-07 14:24 | XMS_ITS | Clinical Summary ---
Author Organization [facility] Address [address] [place] [address] Care Team Providers Care Appraiser Personal Property Name Role Phone Keiry Watt DO Primary [...] on file Legal Sex Female 4:25 AM CREDIT ADMINISTRATION MANAGER Gender Identity Not on file Sexual Orientation [...] Female Attending MD: Jeromy Sierra M.D. Room: [facility] ENDOSCOPY ROOM 02 Note Status: [...] The scope was passed under direct vision.The [id number] was introduced through the anusand advanced to the cecum, identified by appendiceal orifice and ileocecal valve. The colonoscopy was performed with ease. The patient tolerated the procedure well. The quality of the bowelpreparation was excellent. The quality of the bowel preparation was evaluated using the BBPS ([place] BowelPreparation Scale) with scores of: Right Colon [...] Most Recently Relevant to Health Maintenance Insurance [facility] Advance Directives For more information, please contact: [phone] * Full Code (Latest Code Status on File) Date Activated Date Inactivated Comments 08/25/2021 10:14 AM 08/25/2021 4:25 PM Care Teams Appraiser Personal Property Relationship Specialty Start Date End Date Keiry Watt DO [address] [place] [id number] PCP - General Family Medicine 02/19/19
--- OUTSIDE RECORDS SUMMARY | 2024-07-07 14:24 | XMS_ITS | Clinical Summary ---
Author Organization [facility] Address [address] [place] [address] Care Team Providers Care Sander Operator Name Role Phone Unavailable Primary Care Provider Unavailabl e Source Comments [facility],non-owned Affiliates and Associated Physician Practices is amultiple site organization consisting of ambulatory clinics and hospital sitesin [place], [place], [place] and [place]. This disclosure is being madepursuant to the Care Everywhere program and may not contain all information available regarding this patient. Last updated 17.[facility] Allergies No known active allergies Medications * [...] patient's age to complete this topic Insurance [facility] MEDICARE
--- OUTSIDE RECORDS SUMMARY | 2024-07-07 14:24 | XMS_ITS | Encounter Summary ---
Author Organization [facility] Address [address] [place] [address] Care Team Providers Care Ese Teacher Name Role Phone Alexandria Larkin CREDIT ADMINISTRATION MANAGER Primary Care Provider Encounter Details Date Type Department Care Team (Late Contact Info) Description 07/02/2024 MyChart Message Enc [facility] Medical [facility] - [place] [address] [place], [place] [id number] Alexandria Larkin, CREDIT ADMINISTRATION MANAGER [address] [place], [place] [id number] [address] Social History Tobacco Use Types [...] Description 07/08/2024 2:00 PM CDT [facility] [place] [facility] [place] [id number] [place] [address] Alexandria Larkin NP [address] [place] [address] 07/13/2024 10:00 AM CDT [facility] [place] [facility] [address] [place] [address] Henri Doherty PA-C [address] [place] [address] 07/23/2024 8:30 AM CDT Laboratory Only [facility] [place] [address] [place] [address] Alexandria Larkin NP [address] [place] [address] 09/24/2024 2:20 PM CDT [facility] [place] [facility] [address] [place] [id number] Alverto Frias MD [address] [facility] [place] [address] 12/16/2024 8:00 AM CDT [facility] [place] - [place] [id number] [place] [address] Alexandria Larkin CREDIT ADMINISTRATION MANAGER [address] [place] [address] 12/16/2024 8:30 AM CDT Office Visit [facility] Multispecialty Care - [place] [address] [place] [address] Alexandria Larkin NP [address] [place] [address] documented as of this encounter Visit Diagnoses Not on filedocumented in this encounter Additional Health Concerns Assessment Noted Time PHQ-9 Depression Total Score: 2 06/06/19 25 2:41 PM CDT documented as of this encounter Care Teams Ese Teacher Relationship Specialty Start Date End Date Alexandria Larkin NP [address] [place] [address] PCP - General NURSE PRACTITIONER 10/16/23 documented as of this encounter
== END 2024-07-07 14:07 | disposition home or self-care (01) ==
PROVIDERS: PCP Family Medicine; Visit Provider Nurse Practitioner Family
DX: R91.1 Solitary pulmonary nodule (principal); J43.9 Emphysema, unspecified
CPT/HCPCS: 71250